=== PATIENT | female | born 1945 | race Caucasian/White ===

== ENCOUNTER 2016-12-20 11:52 | Emergency (ER) | payer MEDICARE, BC ==
[~2016-12-20] VITALS: Ht 152.4 cm; Wt 71.7 kg
[~2016-12-20 11:52] MED LIST: ALLOPURINOL; ALLP100T PO; ALPR.25T PO; ALPR0.254 PO; ASP325T PO; ASPI-875 PO; BENTYL; BUDE6HFA IH; CA C1TAB26 PO; CALC390T PO; CALCIUM; CHOL200018 PO; CIPR-120 PO; CODE118S2 PO; COLE1TAB PO; D-3 PO; DEXL60CA PO; DEXL60CA5 PO; DICY20TA57 PO; DIOVAN; DOXY-182 PO; EST1.25T PO; FEBU80TA PO; FENO130C5 PO; GABA-490 PO; GBPN100C PO; GBPN300C PO; GLUC-113 PO; GLUC1TAB60 PO; HYDR1TAB PO; IMIP50TA4 PO; IMP25T PO; LEVA15HF2 IH; NEURONTIN; NF-ESOM40C PO; NFNEB10T PO; PHEN120S PO; POTA99TA7 PO; POTASSIUM; PREMARIN; SIMV20TA3 PO; SIMV40TA2 PO; SIMV40TA4 PO; TOFRANIL; VALS1TAB4 PO; VALS1TAB43 PO; XANAX
--- OUTSIDE RECORDS SUMMARY | 2016-12-20 11:58 | XMS REPORT | Continuity of Care Document ---
[facility] Phone Unavailable Care Team Providers Care Radio Station Engineer Name Role Phone Jerilyn Ashlee PCP [phone] Source Comments Some departments are not documenting in the electronic medical record. If you do not see the information that you expected, contact Release of Information in the Health Information Management department at [phone] for further assistance in locating additional records[facility] Active Allergies and Adverse Reactions Allergen Noted Date Severity Reactions Comments Ampicillin 01/28/2015 Medium RASH, ITCHING Other 01/28/2015 Medium MENTAL STATUS CHANGES, Unknown "older muscle SEE COMMENTS relaxant", patient was hospitalized with reaction Prednisone 01/28/2015 Medium MENTAL STATUS CHANGES Sulfa (Sulfonamide 01/28/2015 Medium RASH Antibiotics) Trimethoprim 01/28/2015 Medium RASH, ITCHING Current Medications Prescription Sig. Disp. Refills Start End Date Status Date Cholecalciferol (Vitamin Take by mouth daily. Active D3) (VITAMIN D-3) 2,000 unit cap cyanocobalamin(DIL) Inject to area(s) as Active (VITAMIN B-12, RUBRAMIN) directed every 30 days. 100 mcg/mL Fenofibrate Micronized Take by mouth daily. Active 130 mg cap nebivolol (BYSTOLIC) 10 Take 10 mg by mouth Active mg tablet daily. gabapentin (NEURONTIN) Take 100 mg by mouth Active 100 mg capsule daily. simvastatin (ZOCOR) 40 mg Take 40 mg by mouth at Active tablet bedtime daily. estrogens, conjugated Take 1.25 mg by mouth Active (PREMARIN) 1.25 mg tablet daily. Patient takes 1 1/2 tablets daily for a total dose of 1.875mg glucosamine(+) 500 mg tab Take 500 mg by mouth Active daily with breakfast. dexlansoprazole (+) Take 60 mg by mouth Active (DEXILANT) 60 mg capsule daily. imipramine (TOFRANIL) 50 Take 50 mg by mouth at Active mg tablet bedtime daily. ALPRAZolam (XANAX) 0.25 Take 0.25 mg by mouth as Active mg tablet Needed. aspirin 81 mg chewable Take 81 mg by mouth Active tablet daily. linagliptin (TRADJENTA) 5 Take 5 mg by mouth daily. Active mg tab psyllium (METAMUCIL) Take 1 Packet by mouth 60 Packet 1 01/29/20 Active packet twice daily. 15 senna/docusate Take 1-2 Tabs by mouth at 60 Tab 3 01/29/20 Active (SENOKOT-S) 8.6/50 mg bedtime daily. 15 tablet polyethylene glycol 3350 Take 17 g by mouth daily 1 Bottle 1 01/29/20 Active (GLYCOLAX; MIRALAX) 17 as needed. 15 gram/dose powder magnesium oxide (MAG-OX) Take 400 mg by mouth Active 400 mg tablet daily. ondansetron (ZOFRAN) 4 mg Take 1 Tab by mouth every 90 Tab 0 03/25/20 Active tablet 8 hours as needed for 15 Nausea for up to 90 doses. Active Problems Problem Noted Date Nausea 01/28/2015 Abdominal bloating 01/28/2015 Constipation 01/28/2015 Abdominal pain 01/28/2015 Weight loss 01/28/2015 Social History Tobacco Use Types Packs/Day Years Used Date Never Smoker Alcohol Use Drinks/Week oz/Week Comments No Last Filed Vital Signs Vital Sign Reading Time Taken Blood Pressure 151/77 03/25/2015 1:38 PM CDT Pulse 73 03/25/2015 1:38 PM CDT Temperature 36.6 C (97.9 F) 03/25/2015 1:38 PM CDT Respiratory Rate 14 03/25/2015 1:38 PM CDT Height 1.524 m (5') 03/25/2015 1:38 PM CDT Weight 68.176 kg (150 lb 4.8 oz) 03/25/2015 1:38 PM CDT Body Mass Index 29.35 03/25/2015 1:38 PM CDT Oxygen Saturation 100% 02/20/2015 4:44 PM CDT Plan of Care Health Maintenance Due Date Last Done Comments Physical (Comprehensive) 1950 Exam Pertussis Vaccine 1954 Tetanus Vaccine 1960 Breast Cancer Screening 1983 Shingles Vaccine 2003 Osteoporosis Screening 2008 Prevnar/Pneumovax (#1) 2008 Influenza Vaccine 07/07/2016 Colorectal Cancer 02/20/2025 02/20/2015 Screening Results from Last 3 Months Not on file
--- NOTE | 2016-12-20 12:53 | ED Head Injury ---
General Chief Complaint: Trauma-Non Activation Stated Complaint: FALL/HEAD INJURY Nursing Triage Note: PT STATES FELL AT HOME D/T WEAKNESS IN HANDS AND FEET, STATES HIT HEAD ON DEEP FREEZE. NO LOC Source: patient Exam Limitations: no limitations History of Present Illness Time seen by provider: 12:52 Initial Comments To ER with reports of a fall at home. She states that she has neuropathy ( evaluated by PCP) and sometimes her feet don't work as they should. Today this caused her to fall and she hit the frontal and left side of her head on the deep freeze. No neck pain or loss of consciousness. She does have some dizziness and a slight headache. She states that she does have some dizziness but this is an intermittent problem over the past 2 years and has been evaluated by her primary care provider. Location Injury Occurred: HOME Occurred: just prior to arrival Location: frontal Loss of Consciousness: no loss of consciousness Associated Systoms: Headaches Allergies and Home Medications Allergies Coded Allergies: NSAIDS (Non-Steroidal Anti-Inflamma (Verified Allergy, Intermediate, ) STATES SHE GETS 'CRAZY' Sulfa (Sulfonamide Antibiotics) (Unverified Allergy, Unknown, 01/07/14) ampicillin (Unverified Allergy, Unknown, 01/07/14) prednisone (Unverified Adverse Reaction, Unknown, 03/06/14) Home Medications Alprazolam 0.25 Mg Tablet 0.25 MG PO TID PRN PRN ANXIETY (Reported) NEEDED FOR ANXIETY Aspirin 81 Mg Tablet. 81 MG PO DAILY (Reported) Cholecalciferol (Vitamin D3) 2,000 Unit Capsule 2,000 UNIT PO DAILY (Reported) Ciprofloxacin Hcl 250 Mg Tablet 7Days 250 MG PO BID Prescribed by: ARACELI WELCH on 03/07/14 0928 Dexlansoprazole 60 Mg Albaro. 60 MG PO BID (Reported) Estrogens Conjugated 1.25 Mg Tab 1.25 MG PO DAILY (Reported) Fenofibrate,Micronized 130 Mg Capsule 130 MG PO DAILY (Reported) Gabapentin 100 Mg Cap 200 MG PO HS (Reported) TAKES 2 (100MG) CAPSULES AT BEDTIME Gluc 2KCL/Chondr/Terrell Hy/Hy Ac 1 Each Capsule 1 CAP PO DAILY (Reported) Imipramine Hcl 50 Mg Tablet 50 MG PO HS (Reported) Nebivolol Hcl 10 Mg Tablet 10 MG PO DAILY (Reported) Simvastatin 40 Mg Tablet 20 MG PO DAILY (Reported) TAKES 1/2 (40MG) TABLET DAILY Constitutional: see HPI Eyes: No Symptoms Reported Ears, Nose, Mouth, Throat: no symptoms reported Respiratory: no symptoms reported Cardiovascular: no symptoms reported Genitourinary: no symptoms reported Musculoskeletal: no symptoms reported Skin: no symptoms reported Psychiatric/Neurological: No Symptoms Reported Endocrine: No Symptoms Reported Hematologic/Lymphatic: No Symptoms Reported Past Ujybdrl-Konmfs-Ioyayy Hx Patient Social History Alcohol Use: Denies Use Recreational Drug Use: No Smoking Status: Never a Smoker Recent Foreign Travel: No Contact w/Someone Who Travel: No Recent Infectious Disease Expo: No Recent Hopitalizations: No Immunizations Up To Date Tetanus Booster (TDap): Unknown Date of Influenza Vaccine: Aug 06, 2013 Surgeries HX Surgeries: Yes (HYSTERECTOMY, GALLBLADDER, KIDNEY REMOVED, APPENDECTOMY) Respiratory Hx Respiratory Disorders: No Cardiovascular Hx Cardiac Disorders: Yes Neurological Hx Neurological Disorders: No 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 System Hx 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 Genitourinary Hx Genitourinary Disorders: Yes (LEFT KIDNEY REMOVED FROM SURGICAL MISTAKE) Gastrointestinal Hx Gastrointestinal Disorders: Yes (DUMPING SYNDROME) Musculoskeletal Hx Musculoskeletal Disorders: Yes Musculoskeletal Disorders: Arthritis Endocrine Hx Endocrine Disorders: No HEENT HX ENT Disorders: No Cancer Hx Cancer: No Psychosocial Hx Psychiatric Problems: Yes Behavioral Health Disorders: Anxiety, Depression Integumentary HX Skin/Integumentary Disorder: No Blood Transfusions Hx Blood Disorders: No Adverse Reaction to a Blood Tr: No Family Medical History Family Medial History: Cataract 03 FATHER 03 MOTHER 09 BROTHER 09 BROTHER Dementia 03 MOTHER Family history: Allergy 09 BROTHER Family history: Arthritis 03 MOTHER Family history: Diabetes mellitus 09 BROTHER Family history: Glaucoma 03 MOTHER Family history: Osteoporosis 03 MOTHER Hereditary disease 03 MOTHER Prostate cancer 03 FATHER Stroke 03 MOTHER No Family History of: Abdominal aortic aneurysm Boundary's disease Alcoholism Aphasia Cancer Cancer of colon Chest pain Congenital heart disease Congestive heart failure Cystic fibrosis Dysphagia Family history: Alzheimer's disease Family history: Asthma Family history: Breast disease Family history: Cardiovascular disease Family history: Coronary thrombosis Family history: Gastrointestinal disease Family history: Hypertension Family history: Thyroid disorder Headache Hearing loss Heart disease History of - anemia History of - disorder History of - respiratory disease History of drug abuse Human immunodeficiency virus (HIV) seropositivity Hypercholesterolemia Infertile Kidney disease Malignant neoplasm of lung Myocardial infarction Parkinson's disease Psychotic disorder Seizure disorder Tuberculosis Visual impairment Physical Exam Vital Signs Vital Sign - Last 12Hours 12/20/16 12:05 Temp 97.9 Pulse 66 Resp 18 B/P 146/81 Pulse Ox 95 Capillary Refill : Less Than 3 Seconds General Appearance: WD/WN no apparent distress HEENT: PERRL/EOMI normal ENT inspection other (there is no palpable scalp hematoma or laceration) Neck: non-tender full range of motion Respiratory: no respiratory distress no accessory muscle use Gastrointestinal: normal bowel sounds non tender soft Extremities: normal range of motion non-tender Skin: normal color warm/dry Schurz Coma Score Best Eye Response: (4) Open Spontaneously Best Verbal Response: (5) Oriented Best Motor Response: (6) Obeys Commands Schurz Total: 15 Progress/Results/Core Measures Results/Orders My Orders Orders-DREAD ADAN APRN Ct Head/Cervical Spine Wo (12/20/16 11:58) Vital Signs/I&O Vital Sign - Last 12Hours 12/20/16 12:05 Temp 97.9 Pulse 66 Resp 18 B/P 146/81 Pulse Ox 95 Blood Pressure Mean: 102 Departure Impression Impression: Primary Impression: Fall Additional Impression: Concussion without loss of consciousness Disposition: 01 HOME, SELF-CARE Condition: Stable Departure-Patient Inst. Decision time for Depature: 13:04 Referrals: ARACELI WELCH DO (PCP/Family) Primary Care Physician Patient Instructions: Concussion, Adult (DC) Add. Discharge Instructions: 1. Return to ER for any severe intolerable headaches, nausea vomiting or other concerns 2. Go home and rest. The basis of concussion management is cognitive and physical wrist so nothing physically or mentally stimulating. Unfortunately, concussion symptoms such as dizziness, headache may persist up to 3 weeks. All discharge instructions reviewed with patient and/or family. Voiced understanding. DREAD ADAN APRN Dec 20, 2016 12:53
--- NOTE | 2016-12-20 12:57 | Diagnostic Imaging Report ---
PROCEDURE: CT head and CT cervical spine without contrast. TECHNIQUE: Multiple contiguous axial images were obtained through the brain and cervical spine without the use of intravenous contrast. Sagittal and coronal reformations through the cervical spine were then performed. INDICATION: Patient fell and hit head with left-sided head pain and neck pain. COMPARISON: Head CT 01/08/2014. CTA of the neck 01/07/2015. DISCUSSION: Head: No adverse interval change. No intracranial hemorrhage, mass, midline shift, or hydrocephalus. The ventricles and sulci are normal size and configuration for age. The visualized orbits, paranasal sinuses, mastoid air cells, and calvarium are unremarkable. Cervical spine: Moderate degenerative changes of the cervical spine appear stable. No acute fracture, subluxation, or other osseous abnormality identified. Alignment is anatomic. Soft tissues are unremarkable. IMPRESSION: 1. Stable negative head CT. 2. Stable moderate degenerative changes of the cervical spine. No acute osseous abnormality identified. Dictated by: Dictated on workstation # [id number]
[2016-12-20] MEDS ORDERED: ALPRAZolam 0.25 MG (XANAX) TAB PO ONE (13:15)
[2016-12-20 13:16] VITALS: BP 142/72
== END 2016-12-20 13:14 | disposition home or self-care (01) ==
LOC: EDUNIT# 11:52 → ER 11:54
DX: S06.0X0A Concussion without loss of consciousness, initial encounter (principal); R42 Dizziness and giddiness; G62.9 Polyneuropathy, unspecified; R29.6 Repeated falls; Z79.82 Long term (current) use of aspirin; Z79.899 Other long term (current) drug therapy; W18.09XA Striking against other object with subsequent fall, initial encounter; Y92.009 Unspecified place in unspecified non-institutional (private) residence as the place of occurrence of the external cause; Y99.8 Other external cause status
CPT/HCPCS: 70450; 72125; 99282

== ENCOUNTER → 2018-03-15 | Outpatient (CLI) | payer MEDICARE, BC ==
--- NOTE | 2018-03-15 12:40 | Diagnostic Imaging Report ---
CLINICAL INDICATION: Patient with neuropathy and recently has been falling and having trouble walking. Exam: MRI of the lumbar spine performed without IV contrast. Sagittal T2, sagittal T1, sagittal stir, axial T1, and axial T2. Comparison: MRI of the lumbar spine without contrast dated 03/17/2011. Findings: Stable mild left curvature of the lumbar spine. Visualized portions of the distal thoracic spinal cord, conus medullaris, and cauda equina nerve roots are unremarkable. Conus medullaris tip is seen at the upper L2 vertebral body level. There is no significant paraspinal soft tissue abnormality. There is no acute lumbar spine fracture or dislocation. Again seen slightly heterogeneous high/low T1/T2 signal. There is Modic type II degenerative signal changes involving the L3-L4 and L4-L5 levels again noted. There is degenerative spurs and facet arthropathy seen predominantly involving the lower lumbar spine. L1-L2 and L2-L3: Unremarkable. L3-L4: There is no significant change to the diffuse disc bulge with moderate to severe loss of intervertebral disc height. There is mild central canal narrowing which is not significantly progressed. There is mild to moderate right neural foramen narrowing and mild left neural foramen narrowing which is stable. L4-L5: Again seen diffuse disc bulge with interval slight decreased size of the left paracentral disc extrusion/herniation component. There is slight progression of [id number] facet arthropathy and ligamentum flavum buckling. There is moderate central canal narrowing which is grossly similar. There is no significant right neural foramen narrowing and stable mild to moderate left neural foramen narrowing. L5-S1: There is a diffuse disc bulge with mild loss of intervertebral disc height and mild bilateral facet arthropathy which is not significantly changed. Stable mild to moderate bilateral neural foramen narrowing (right side more than the left). IMPRESSION: 1: There is interval decreased size of the left paracentral disc herniation component of the L4-L5 diffuse disc bulge. There is slight progression of facet arthropathy and ligamentum flavum buckling. There is relatively stable moderate central canal narrowing. There is also stable mild to moderate left neural foramen narrowing. 2: The remainder of the lumbar spine degenerative disease has not significantly changed. Dictated by: Dictated on workstation # [id number]
== END ==
LOC: RAD 10:24
PROVIDERS: ATTEND Family Medicine
DX: M51.26 Other intervertebral disc displacement, lumbar region (principal); M51.36 Other intervertebral disc degeneration, lumbar region; M99.73 Connective tissue and disc stenosis of intervertebral foramina of lumbar region; G62.9 Polyneuropathy, unspecified
CPT/HCPCS: 72148

== ENCOUNTER → 2019-05-23 | Outpatient (CLI) | payer MEDICARE, BC ==
--- NOTE | 2019-05-23 09:45 | Diagnostic Imaging Report ---
Clinical indication: Patient with elevated liver function test. Exam: Right upper quadrant ultrasound. Comparison: CT scan of the abdomen and pelvis without contrast dated 07/28/2014. Findings: The liver measures 19.5 cm. There is diffuse hyperechogenicity seen throughout the liver. The liver surface appears slightly lobulated. There is no liver mass seen. There is no intrahepatic or extrahepatic ductal dilation. Common bile measures 7.4 mm. The gallbladder surgically resected. Portion of the pancreatic tail is partially obscured. Otherwise visualized portion of the pancreas is unremarkable. The IVC and aorta are not well visualized on this exam due to patient body habitus and increased echogenicity throughout the liver. There is abdominal ascites. Right kidney shows no mass or hydronephrosis and is grossly unremarkable. Right kidney measures 10.1 cm in craniocaudal dimension. Impression: 1: Hepatomegaly with diffuse hyperechogenicity seen throughout the liver which may be related to diffuse fatty infiltration and or chronic hepatocellular disease. There is a minimally lobulated appearance to the liver surface. This finding may be seen with cirrhosis. Clinical correlation is suggested. 2: Cholecystectomy. 3: The remainder of this exam is unremarkable as visualized. Dictated by: Dictated on workstation # [id number]
== END ==
LOC: RAD 07:29
PROVIDERS: ATTEND Family Medicine
DX: R93.2 Abnormal findings on diagnostic imaging of liver and biliary tract (principal); R16.0 Hepatomegaly, not elsewhere classified; Z90.49 Acquired absence of other specified parts of digestive tract
CPT/HCPCS: 76705

== ENCOUNTER 2020-04-21 13:40 | Emergency (ER) | payer MEDICARE, BC ==
[~2020-04-21] VITALS: Ht 152.4 cm; Wt 72.6 kg
--- NOTE | 2020-04-21 13:46 | ED Fall/Injury ---
General Stated Complaint: FALL Source: patient History of Present Illness Date Seen by Provider: Apr 21, 2020 Time Seen by Provider: 13:47 Initial Comments PT ARRIVES VIA POV FROM DR. WELCH'S OFFICE PT HAD A SCHEDULED ROUTINE APPOINTMENT TODAY, AND 45 MINUTES AGO, WHILE SHE WAS AT HOME, SHE LOST HER BALANCE AND FELL, HITTING HER HEAD, LANDING ON CARPETED FLOOR, ONTO HER BACK AND RIGHT SIDE. NO LOSS OF CONSCIOUSNESS NO NECK PAIN C/O BLURRY VISION C/O RIGHT SIDED HEADACHE C/O RIGHT HIP PAIN NO CHANGE IN CHRONIC BACK PAIN HAS CHRONIC HIP PAIN, AND STATES IT IS NOT ANY DIFFERENT THAN NORMAL HAS PERIPHERAL NEUROPATHY, AND NO INCREASE IN SYMPTOMS MUCH LATER, PT C/O GENERALIZED WEAKNESS MUCH LATER, SHE REPORTS THAT SHE HAS HAD DIARRHEA FOR THE LAST COUPLE OF DAYS--NO BLACK/BLOODY/TARRY STOOLS NO NAUSEA/VOMITING NO ABDOMINAL PAIN NO FEVER NO URINARY SYMPTOMS AND VOIDING A NORMAL AMOUNT. CERVICAL COLLAR PLACED ON ARRIVAL PCP: DR. WELCH Allergies and Home Medications Allergies Coded Allergies: NSAIDS (Non-Steroidal Anti-Inflamma (Verified Allergy, Intermediate, 01/07/14) STATES SHE GETS 'CRAZY' Sulfa (Sulfonamide Antibiotics) (Unverified Allergy, Unknown, 01/07/14) ampicillin (Unverified Allergy, Unknown, 01/07/14) prednisone (Unverified Adverse Reaction, Unknown, 03/06/14) Home Medications Alprazolam 0.25 Mg Tablet, 0.25 MG PO TID PRN for ANXIETY, (Reported) NEEDED FOR ANXIETY Aspirin 81 Mg Tablet., 81 MG PO DAILY, (Reported) Cholecalciferol (Vitamin D3) 2,000 Unit Capsule, 2,000 UNIT PO DAILY, (Reported) Ciprofloxacin Hcl 250 Mg Tablet, 250 MG PO BID Prescribed by: ARACELI WELCH on 03/07/14 0928 Dexlansoprazole 60 Mg Cap., 60 MG PO BID, (Reported) Estrogens Conjugated 1.25 Mg Tab, 1.25 MG PO DAILY, (Reported) Fenofibrate,Micronized 130 Mg Capsule, 130 MG PO DAILY, (Reported) Gabapentin 100 Mg Cap, 200 MG PO HS, (Reported) TAKES 2 (100MG) CAPSULES AT BEDTIME Gluc 2KCL/Chondr/Terrell Hy/Hy Ac 1 Each Capsule, 1 CAP PO DAILY, (Reported) Imipramine Hcl 50 Mg Tablet, 50 MG PO HS, (Reported) Nebivolol Hcl 10 Mg Tablet, 10 MG PO DAILY, (Reported) Simvastatin 40 Mg Tablet, 20 MG PO DAILY, (Reported) TAKES 1/2 (40MG) TABLET DAILY Patient Home Medication List Home Medication List Reviewed: Yes Review of Systems Review of Systems Constitutional: see HPI; No chills, No diaphoresis, No dizziness, No fever; malaise, weakness Eyes: No Symptoms Reported Ears, Nose, Mouth, Throat: no symptoms reported Respiratory: no symptoms reported Cardiovascular: no symptoms reported Gastrointestinal: see HPI; No abdominal pain; diarrhea; No nausea, No vomiting Genitourinary: no symptoms reported Musculoskeletal: see HPI Skin: no symptoms reported Psychiatric/Neurological: See HPI; Denies Headache; Pre-Existing Deficit (PERIPHERAL NEUROPATHY) Past Chvqihj-Vlfpir-Ysyema Hx Past Med/Social Hx: Reviewed and Corrections made Patient Social History Alcohol Use: Denies Use Recreational Drug Use: No Smoking Status: Never a Smoker Recent Hopitalizations: No Immunizations Up To Date Tetanus Booster (TDap): Unknown Date of Influenza Vaccine: Aug 06, 2013 Past Medical History Surgeries: Yes Hysterectomy Respiratory: No Cardiac: Yes High Cholesterol, Hypertension Neurological: Yes Neuropathy 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, 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 Genitourinary: Yes (CHRONIC RENAL INSUFFICIENCY) Gastrointestinal: No Musculoskeletal: Yes (CHRONIC HIP PAIN ) Arthritis, Chronic Back Pain Endocrine: No HEENT: No Psychosocial: Yes Anxiety, Depression Integumentary: No Blood Disorders: Yes (CHRONIC ANEMIA) Adverse Reaction/Blood Tranf: No Family Medical History Cataract 03 FATHER 03 MOTHER 09 BROTHER 09 BROTHER Dementia 03 MOTHER Family history: Allergy 09 BROTHER Family history: Arthritis 03 MOTHER Family history: Diabetes mellitus 09 BROTHER Family history: Glaucoma 03 MOTHER Family history: Osteoporosis 03 MOTHER Hereditary disease 03 MOTHER Prostate cancer 03 FATHER Stroke 03 MOTHER No Family History of: Abdominal aortic aneurysm Challis's disease Alcoholism Aphasia Cancer Cancer of colon Chest pain Congenital heart disease Congestive heart failure Cystic fibrosis Dysphagia Family history: Alzheimer's disease Family history: Asthma Family history: Breast disease Family history: Cardiovascular disease Family history: Coronary thrombosis Family history: Gastrointestinal disease Family history: Hypertension Family history: Thyroid disorder Headache Hearing loss Heart disease History of - anemia History of - disorder History of - respiratory disease History of drug abuse Human immunodeficiency virus (HIV) seropositivity Hypercholesterolemia Infertile Kidney disease Malignant neoplasm of lung Myocardial infarction Parkinson's disease Psychotic disorder Seizure disorder Tuberculosis Visual impairment Physical Exam Vital Signs Vital Signs - First Documented 04/21/20 13:45 Temp 36.8 Pulse 81 Resp 18 B/P (MAP) 160/65 (96) Pulse Ox 99 O2 Delivery Room Air Capillary Refill : Height, Weight, BMI Height: 5'0.00" Weight: 158lbs. 0.0oz. [id number]; 30.85 BMI Method:Stated General Appearance: WD/WN, no apparent distress HEENT: PERRL/EOMI, normal ENT inspection, TMs normal, pharynx normal, other (NO EXTERNAL EVIDENCE OF TRAUMA TO HEAD) Neck: non-tender, other (CERVICAL COLLAR APPLIED ON ARRIVAL) Cardiovascular: normal peripheral pulses, regular rate, rhythm, no edema, no JVD, no murmur Respiratory: chest non-tender, normal breath sounds, no respiratory distress, no accessory muscle use Peripheral Pulses: 1+ Dorsalis Pedis (R), 1+ Left Dors-Pedis (L), 1+ Radial Pulses (R), 1+ Radial Pulses (L) Gastrointestinal: normal bowel sounds, non tender, soft Back: no CVA tenderness, other (MID AND LOWER BACK TENDERNESS) Extremities: no pedal edema, no calf tenderness, normal capillary refill, other (RGHT HIP TENDERNESS) 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: 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, no motor/sensory deficits, alert, normal mood/affect, oriented x 3 Skin: normal color, warm/dry; No ecchymosis; other (NO EXTERNAL EVIDENCE OF TRAUMA ANYWHERE) Corea Coma Score Best Eye Response: (4) Open Spontaneously Best Verbal Response: (5) Oriented Best Motor Response: (6) Obeys Commands Corea Total: 15 Progress/Results/Core Measures Results/Orders Lab Results Laboratory Tests Test 04/21/20 14:05 04/21/20 15:20 Range/Units White Blood Count 6.4 4.3-11.0 10^3/uL Red Blood Count 3.88 L 4.35-5.85 10^6/uL Hemoglobin 10.0 L 11.5-16.0 G/DL Hematocrit 32 L 35-52 % Mean Corpuscular Volume 83 80-99 FL Mean Corpuscular Hemoglobin 26 25-34 PG Mean Corpuscular Hemoglobin Concent 31 L 32-36 G/DL Red Cell Distribution Width 15.3 H 10.0-14.5 % Platelet Count 220 130-400 10^3/uL Mean Platelet Volume 11.7 H 7.4-10.4 FL Neutrophils (%) (Auto) 66 42-75 % Lymphocytes (%) (Auto) 26 12-44 % Monocytes (%) (Auto) 8 0-12 % Eosinophils (%) (Auto) 0 0-10 % Basophils (%) (Auto) 0 0-10 % Neutrophils # (Auto) 4.2 1.8-7.8 X 10^3 Lymphocytes # (Auto) 1.6 1.0-4.0 X 10^3 Monocytes # (Auto) 0.5 0.0-1.0 X 10^3 Eosinophils # (Auto) 0.0 0.0-0.3 10^3/uL Basophils # (Auto) 0.0 0.0-0.1 10^3/uL Sodium Level 136 135-145 MMOL/L Potassium Level 4.8 3.6-5.0 MMOL/L Chloride Level 105 98-107 MMOL/L Carbon Dioxide Level 20 L 21-32 MMOL/L Anion Gap 11 5-14 MMOL/L Blood Urea Nitrogen 21 H 7-18 MG/DL Creatinine 1.70 H 0.60-1.30 MG/DL Estimat Glomerular Filtration Rate 29 BUN/Creatinine Ratio 12 Glucose Level 183 H 70-105 MG/DL Calcium Level 9.8 8.5-10.1 MG/DL Corrected Calcium 9.9 8.5-10.1 MG/DL Total Bilirubin 0.3 0.1-1.0 MG/DL Aspartate Amino Transf (AST/SGOT) 46 H 5-34 U/L Alanine Aminotransferase (ALT/SGPT) 28 0-55 U/L Alkaline Phosphatase 100 40-136 U/L Total Protein 7.2 6.4-8.2 GM/DL Albumin 3.9 3.2-4.5 GM/DL Urine Color YELLOW Urine Clarity CLEAR Urine pH 6.0 5-9 Urine Specific [place] <=1.005 1.016-1.022 Urine Protein NEGATIVE NEGATIVE Urine Glucose (UA) NEGATIVE NEGATIVE Urine Ketones NEGATIVE NEGATIVE Urine Nitrite NEGATIVE NEGATIVE Urine Bilirubin NEGATIVE NEGATIVE Urine Urobilinogen 0.2 < = 1.0 MG/DL Urine Leukocyte Esterase NEGATIVE NEGATIVE Urine RBC (Auto) NEGATIVE NEGATIVE Urine RBC NONE /HPF Urine WBC NONE /HPF Urine Squamous Epithelial Cells 2-5 /HPF Urine Crystals NONE /LPF Urine Bacteria FEW H /HPF Urine Casts NONE /LPF Urine Mucus NEGATIVE /LPF Urine Yeast FEW H /HPF Urine Culture Indicated NO My Orders Orders - DOUG JUSTICE DO Ct Head/Cervical Spine Wo (04/21/20 13:43) Ct Thoracic/Lumbar Spine Wo (04/21/20 13:43) Monitor-Rhythm Ecg Trace Only (04/21/20 13:43) Cervical Collar (04/21/20 13:43) Cbc With Automated Diff (04/21/20 13:43) Comprehensive Metabolic Panel (04/21/20 13:43) Ua Culture If Indicated (04/21/20 13:43) Chest 1 View, Ap/Pa Only (04/21/20 13:43) Pelvis With Right Hip 2-3views (04/21/20 13:43) Ed Iv/Invasive Line Start (04/21/20 15:06) Lactated Ringers (Lr 1000 Ml Iv Solution (04/21/20 15:06) Ed Iv/Invasive Line Start (04/21/20 15:21) Lactated Ringers (Lr 1000 Ml Iv Solution (04/21/20 15:21) Medications Given in ED Vital Signs/I&O 04/21/20 04/21/20 13:45 16:43 Temp 36.8 36.6 Pulse 81 82 Resp 18 18 B/P (MAP) 160/65 (96) 178/69 Pulse Ox 99 99 O2 Delivery Room Air Room Air Progress Progress Note : Progress Note 1515--CERVICAL COLLAR REMOVED ON OBTAINING CT CERVICAL SPINE REPORT BY RADIOLOGIST UNEVENTFUL ER STAY NO DIARRHEA DURING ER STAY PT DECLINED SECOND BAG OF IV FLUIDS AND IS ANXIOUS TO GO HOME STATES SHE FEELS BETTER Diagnostic Imaging Comments CT HEAD/CERVICAL SPINE IMPRESSION: 1. No hemorrhage or focal intra-axial mass. No CT evidence of large acute territorial ischemia. 2. No acute fracture or dislocation in the cervical spine. 3. Moderate degenerative changes in the cervical spine, similar to the prior exam. CT THORACIC/LUMBAR SPINE IMPRESSION: Progressive L3-L4 spondylosis but no thoracolumbar fracture or traumatic malalignment. No acute appearing abnormality. CXR IMPRESSION: Borderline heart size with no acute process in the chest. PELVIS AND RIGHT HIP XRAYS IMPRESSION: 1. No acute osseous abnormality with low-grade degenerative changes. ALL PER RADIOLOGIST REPORTS AT 1515 Reviewed: Reviewed by Me Departure Communication (Admissions) 0064--SPOKE WITH DR. WELCH. SHE REPORTS THAT PT HAS CHRONIC RENAL INSUFFICIENCY AND ANEMIA OF CHRONIC DISEASE. SHE DOES NOT ADVISE ADMIT AT THIS TIME, SHE WILL FOLLOW UP WITH PT IN OFFICE THIS WEEK, Impression Primary Impression: Status post fall Additional Impressions: Closed head injury without loss of consciousness Contusion of right hip NECK AND BACK STRAIN Chronic renal insufficiency Chronic anemia Generalized weakness Diarrhea Disposition: 01 HOME, SELF-CARE Condition: Stable Departure-Patient Inst. Referrals: ARACELI WELCH DO (PCP/Family) Primary Care Physician Patient Instructions: Back Muscle Strain (DC), Cervical Muscle Strain (DC), Contusion (DC), Minor Head Injury (DC), Preventing Falls in the Older Adult Add. Discharge Instructions: ICE TO SORE AREAS AT 20 MINUTE INTERVALS TYLENOL NEEDED FOR PAIN INCREASE YOUR FLUID INTAKE--WATER, BROTH, JELLO, GATORADE BRATS DIET--BANANAS, RICE, APPLESAUCE, TOAST, SALTINES FOLLOW UP WITH DR. WELCH THIS WEEK FOR FURTHER CARE DOUG JUSTICE DO Apr 21, 2020 13:46
[2020-04-21 14:15] LABS: BASOPHILS % (AUTO) 0 % (0-10); EOSINOPHILS % (AUTO) 0 % (0-10); HEMATOCRIT 32 % (35-52); LYMPHOCYTES # (AUTO) 1.6 X 10^3 (1.0-4.0); LYMPHOCYTES % (AUTO) 26 % (12-44); MEAN CORPUSCULAR HEMOGLOBIN 26 PG (25-34); MEAN CORPUSCULAR HGB CONC 31 G/DL (32-36); MEAN CORPUSCULAR VOLUME 83 FL (80-99); MEAN PLATELET VOLUME 11.7 FL (7.4-10.4); MONOCYTES # (AUTO) 0.5 X 10^3 (0.0-1.0); MONOCYTES % (AUTO) 8 % (0-12); NEUTROPHILS # (AUTO) 4.2 X 10^3 (1.8-7.8); NEUTROPHILS % (AUTO) 66 % (42-75); PLATELET COUNT 220 10^3/uL (130-400); RED CELL DISTRIBUTION WIDTH 15.3 % (10.0-14.5); WHITE BLOOD COUNT 6.4 10^3/uL (4.3-11.0)
--- NOTE | 2020-04-21 14:39 | Diagnostic Imaging Report ---
PROCEDURE: CT head and CT cervical spine without contrast. TECHNIQUE: Multiple contiguous axial images were obtained through the brain and cervical spine without the use of intravenous contrast. Sagittal and coronal reformations through the cervical spine were then performed. Auto Exposure Controls were utilized during the CT exam to meet ALARA standards for radiation dose reduction. INDICATION: Fall. Right neck pain. Scalp contusion. COMPARISON: 12/20/2016. FINDINGS: CT head: No large acute territorial ischemia, mass, or hemorrhage. No midline shift or mass effect. The ventricles, cortical sulci, and basilar cisterns are patent and unremarkable. The calvarium is intact. The visualized paranasal sinuses are clear. CT cervical spine: No acute fracture or dislocation is seen in the cervical spine. There is straightening of the cervical spine. No focal osseous lesions. Vertebral body heights are well-maintained. The craniocervical junction is well-maintained. Moderate degenerative changes are seen in the cervical spine with disc osteophyte complexes and uncovertebral arthropathy, greatest at C6-C7. Soft tissues of the neck are unremarkable. The included lung apices are clear. IMPRESSION: 1. No hemorrhage or focal intra-axial mass. No CT evidence of large acute territorial ischemia. 2. No acute fracture or dislocation in the cervical spine. 3. Moderate degenerative changes in the cervical spine, similar to the prior exam. Dictated by: Dictated on workstation # [id number]
--- NOTE | 2020-04-21 14:42 | Diagnostic Imaging Report ---
PROCEDURE: CT thoracic and lumbar spine without contrast. TECHNIQUE: Multiple contiguous axial images were obtained through the thoracic and lumbar spine without the use of intravenous contrast. Sagittal and coronal reformations were then performed. All CT scans use one or more of the following dose optimizing techniques: automated exposure control, MA and/or KvP adjustment based on a patient size and exam type, or iterative reconstruction. INDICATION: Injury with back pain. COMPARISON: Comparison is limited to a lumbar MRI performed in 2011 and previous chest x-rays. FINDINGS: The thoracolumbar vertebral statures are within normal limits. There are degenerative changes throughout the thoracolumbar spine, most severe at the L3-L4 level, where there is marked disc space narrowing, endplate sclerosis, and osteophytes. When given the differing modalities, this is significantly progressed from the comparison MRI performed in 2010. No evidence for paravertebral hemorrhage and no thoracolumbar fracture is found. The posterior visualized ribs segments are intact. No demonstrated pleural fluid. No paraspinal hemorrhage. The SI joints and visualized sacral ala are intact. IMPRESSION: Progressive L3-L4 spondylosis but no thoracolumbar fracture or traumatic malalignment. No acute appearing abnormality. Dictated by: Dictated on workstation # [id number]
[2020-04-21 14:51] LABS: ALBUMIN 3.9 GM/DL (3.2-4.5); BILIRUBIN,TOTAL 0.3 MG/DL (0.1-1.0); CALCIUM 9.8 MG/DL (8.5-10.1); CREATININE SERUM 1.7 MG/DL (0.60-1.30); POTASSIUM 4.8 MMOL/L (3.6-5.0); TOTAL PROTEIN 7.2 GM/DL (6.4-8.2)
--- NOTE | 2020-04-21 14:55 | Diagnostic Imaging Report ---
INDICATION: Fall with chest discomfort. Frontal chest obtained at 0245 p.m. and compared to 08/04/2016. Heart is borderline in size. Mediastinal silhouette is unremarkable. The lungs are clear. There is no pneumothorax or pleural fluid. There is no overt bony abnormality in the chest. IMPRESSION: Borderline heart size with no acute process in the chest. Dictated by: Dictated on workstation # [id number]
--- NOTE | 2020-04-21 14:58 | Diagnostic Imaging Report ---
INDICATION: Fall, pain COMPARISON: 10/20/2010 TECHNIQUE: 3 radiographs of the pelvis and right hip dated 04/21/2020. FINDINGS: No acute fracture or dislocation. No destructive osseous process. Mild degenerative changes within the bilateral hips and pubic symphysis. The right femoral head maintains its normal shape and contour without collapse. The sacroiliac joints are intact. No suspicious radiopaque foreign body. IMPRESSION: 1. No acute osseous abnormality with low-grade degenerative changes. Dictated by: Dictated on workstation # [id number]
[2020-04-21] MEDS ORDERED: LACTATED RINGERS 1,000 ML IV ONE ×2 (15:06→15:21)
--- NOTE | 2020-04-21 15:15 | NUR ---
CERVICAL COLLAR REMOVED BY DR. JUSTICE AT 1515
--- NOTE | 2020-04-21 15:20 | NUR ---
PCCT ASSISTED PT TO BEDSIDE COMMODE TO OBTAIN CLEAN CATCH URINE SAMPLE. PT TOLERATED WELL.
[2020-04-21 15:30] LABS: BILIRUBIN,URINE NEGATIVE (NEGATIVE); CLARITY,URINE CLEAR; COLOR,URINE YELLOW; GLUCOSE, URINE (UA) NEGATIVE (NEGATIVE); KETONES,URINE NEGATIVE (NEGATIVE); LEUKOCYTE ESTERASE ,URINE NEGATIVE (NEGATIVE); NITRITE,URINE NEGATIVE (NEGATIVE); PROTEIN,URINE NEGATIVE (NEGATIVE)
--- NOTE | 2020-04-21 15:30 | NUR ---
PER PT REQUEST, THIS RN CONTACTED , DARRELL THOMAS, TO UPDATE ON CONDITION OF PT. DARRELL VOICES NO FURTHER QUESTIONS OR CONCERNS. ([phone])
[2020-04-21 15:51] LABS: BACTERIA,URINE FEW /HPF; YEAST,URINE FEW /HPF
[2020-04-21 16:43] VITALS: BP 178/69
== END 2020-04-21 16:43 | disposition home or self-care (01) ==
LOC: EDUNIT# 13:40 → ER 13:42
DX: S09.90XA Unspecified injury of head, initial encounter (principal); S70.01XA Contusion of right hip, initial encounter; S16.1XXA Strain of muscle, fascia and tendon at neck level, initial encounter; S39.012A Strain of muscle, fascia and tendon of lower back, initial encounter; N18.9 Chronic kidney disease, unspecified; D64.9 Anemia, unspecified; R19.7 Diarrhea, unspecified; F41.9 Anxiety disorder, unspecified; F32.9 Major depressive disorder, single episode, unspecified; Z88.6 Allergy status to analgesic agent; Z88.2 Allergy status to sulfonamides; Z88.1 Allergy status to other antibiotic agents; Z88.8 Allergy status to other drugs, medicaments and biological substances; Z79.82 Long term (current) use of aspirin; Z80.42 Family history of malignant neoplasm of prostate; W18.39XA Other fall on same level, initial encounter; W22.8XXA Striking against or struck by other objects, initial encounter; Y92.009 Unspecified place in unspecified non-institutional (private) residence as the place of occurrence of the external cause
CPT/HCPCS: 36415; 70450; 71045; 72125; 72128; 72131; 80053; 81000; 85025; 93041

== ENCOUNTER 2020-05-25 05:40 | Outpatient (RCR) | payer MEDICARE, BC ==
[~2020-05-25] VITALS: Ht 154.9 cm; Wt 75.9 kg
[~2020-05-25 05:40] MED LIST changes: +ALLO100T PO; +AMLO5TAB9 PO; +DOXA2TAB2 PO; +LINA5TAB PO; +LOSA100T57 PO; +MAGN400T8 PO
[2020-05-25] MEDS ORDERED: DICY20TA10 PO (12:18)
[2020-05-25] MEDS ORDERED: GLUC-235 PO (12:18)
[2020-05-25] MEDS ORDERED: CHOL100048 PO (12:18)
[2020-05-25] MEDS ORDERED: LEVO1CAP11 PO (12:18)
[2020-05-27] MEDS ORDERED: HYDR-4226 PO (14:51)
== END 2020-05-25 11:09 | disposition home or self-care (01) ==
LOC: PREOP 05:40
PROVIDERS: ATTEND Surgery
DX: Z01.812 Encounter for preprocedural laboratory examination (principal); R22.31 Localized swelling, mass and lump, right upper limb; Z20.828 Contact with and (suspected) exposure to other viral communicable diseases
CPT/HCPCS: 87635

== ENCOUNTER 2020-05-27 10:07 | Day surgery (SDC) | payer MEDICARE, BC ==
[2020-05-27] VITALS (8 sets, daily range): BP systolic 122–157; BP diastolic 56–83
[~2020-05-27] VITALS: Ht 154.9 cm; Wt 75.9 kg
[~2020-05-27 10:07] MED LIST changes: +CHOL100048 PO; +DICY20TA10 PO; +GLUC-235 PO; +LEVO1CAP11 PO
[2020-05-27] MEDS ORDERED: LACTATED RINGERS 1,000 ML IV PRN (10:29)
[2020-05-27] MEDS ORDERED: CLINDAMYCIN 600 MG/50 ML IVPB 50 ML IV ONE (10:30)
--- NOTE | 2020-05-27 13:17 | Progress Note-Pre Operative ---
Pre-Operative Progress Note H&P Reviewed The H&P was reviewed, patient examined and no changes noted. Time Seen by Provider: 13:15 Date H&P Reviewed: May 27, 2020 Time H&P Reviewed: 13:15 Pre-Operative Diagnosis: Right hand mass, site marked RICHELLE THAPA DO May 27, 2020 13:17
[2020-05-27] MEDS ORDERED: MIDAZOLAM 2 MG/2 ML (VERSED) VIAL ONE (14:18)
[2020-05-27] MEDS ORDERED: fentaNYL INJECTION 100 MCG/2 ML AMP ONE (14:19)
[2020-05-27] MEDS ORDERED: BUP/EPI 0.5% 1:200,000 (SENSORCAINE) 30 ML VIAL ONE (14:20)
[2020-05-27] MEDS ORDERED: PROPOFOL INJECTION 50 ML IV ONE (14:48)
--- NOTE | 2020-05-27 14:50 | Progress Note-Post Operative ---
Post-Operative Progess Note Surgeon (s)/Rn Plastics (s) Surgeon RICHELLE THAPA DO Rn Plastics: NONE Pre-Operative Diagnosis Right hand mass, site marked Post-Operative Diagnosis same pending path Procedure & Operative Findings Date of Procedure 05/27/20 Procedure Performed/Findings Exc right hand mass, 3.2 x 1.4cm Anesthesia Type MAC Estimated Blood Loss Estimated blood loss (mL): less than 5ml Specimens/Packing Specimens Removed right hand mass RICHELLE THAPA DO May 27, 2020 14:50
[2020-05-27] MEDS ORDERED: HYDR-4226 PO (14:51)
--- NOTE | 2020-05-27 14:51 | Discharge Inst-Surgical ---
Discharge Inst-Surgical Depart Medication/Instructions New, Converted or Re-Newed RX: RX Given to Pt/Family Patient Instructions Follow up Appt: Make appointment for 1 week. [phone] Instructions: No strenuous activity. May shower in 24 hours, no tub bath or soaking. Use incentive spirometer at home as directed. No Smoking Skin/Wound Care: May remove bandages in am. You need to leave the Dermabond on incision it will fall off on it's own. Symptoms to Report: Appetite Changes, Extremity Discoloration, Numbness/Tingling, Swelling Increased, Bleeding Excessive, Eyesight Changes, Pain Increased, Urine Color Cathleen nge, Constipation(Persistent), Fever over 101 degree F, Pain/Pressure in chest, Urinating Difficulty, Cough Up/Vomit Blood, Heart Beat Irreg/Pounding, Pain/Pressure in jaw, Cramps in feet or legs, Lightheadedness, Pain/Pressure in shoulder, Diarrhea(Persistent), Memory Changes Suddenly, Questions/Concerns, Weight gain consecutive days, Dizziness/Fainting, Nausea/Vomiting, Shortness of Breath, Weight gain over 2 pounds If questions or concerns contact your physician Or seek help at emergency department. Activity Activity as Tolerated: Yes Activity Instructions: Avoid Stress to Incision Driving Instructions: No Driving/Refer to Dr. Davidson Discharge Diet: No Restrictions Diet After 24 Hours: Clear Liquid if Nauseous If Any Problems/Questions/Issu: Contact Your Physician, Go to Emergency Room Skin/Wound Care Infection Signs and Symptoms: Increased Redness, Foul Odor of Wound, Increased Drainage, Skin Itchy or Has a Rash, Increased Swelling, Temperature Above 101 F Bathing Instructions: Shower Stitches/Adelina/Dermabond Dis: Care of Stitches RICHELLE THAPA DO May 27, 2020 14:51
--- NOTE | 2020-05-27 14:54 | Anesthesia-General Post-Op ---
MAC Patient Condition Mental Status/LOC: Same as Preop Cardiovascular: Satisfactory Nausea/Vomiting: Absent Respiratory: Satisfactory Pain: Controlled Complications: Absent Post Op Complications Complications None Follow Up Care/Instructions Patient Instructions None needed. Anesthesiology Discharge Order Discharge Order Patient is doing well, no complaints, stable vital signs, no apparent adverse anesthesia problems. No complications reported per nursing. BASILIO ERAZO REGISTERED ACCOUNT ADMINISTRATOR May 27, 2020 14:54
[2020-05-27] MEDS ORDERED: morphine INJ 10 MG/ML 1ML (SYR OR VIAL) IVP ONE (15:00)
[2020-05-27] MEDS ORDERED: MEPERIDINE (DEMEROL) INJ 50 MG/ML IVP ONE (15:00)
--- NOTE | 2020-05-28 02:41 | OPERATIVE REPORT ---
DATE OF SERVICE: 05/27/2020 PREOPERATIVE DIAGNOSIS: Right hand mass. POSTOPERATIVE DIAGNOSIS: Right hand mass, pending pathology. PROCEDURE: Excision of right hand mass measuring 3.2 x 1.4 cm down into the subcutaneous fat. SURGEON: Casper Martinez DO DESK ASSISTANT: None. ANESTHESIA: MAC. SPECIMEN: Right hand mass measuring 3.2 x 1.4 cm. BLOOD LOSS: Less than 5 mL. FLUIDS: Per anesthesia. POSTOPERATIVE CONDITION: Stable. INDICATION FOR PROCEDURE: The patient is a 74-year-old female who has a mass on her right hand that is getting bigger and has not gone away since removed. FINDINGS: The patient had a mass removed and sent to pathology, measured 3.2 x 1.4 cm and was down through into the subcutaneous fat. PROCEDURE NOTE: After informed consent was obtained, the patient was brought to the operating room, placed on the table in supine position. She was sterilely prepped and draped in normal fashion. Local lidocaine was used to infiltrate the skin around this mass and then samantha an elliptical incision with a marking pen and then using #15 blade to cut along this marking. This measured 3.2 x 1.4 cm, able to go down through the skin into subcutaneous tissue, then deepened down to subcutaneous tissue with Bovie electrocautery. She is very thin and had very thin skin, able to remove this, passed off table, marked it superiorly and laterally, although technically that was actually marked at the 3 o'clock, which is medial, but would be lateral and dorsal position. This was passed off the table. Hemostasis obtained using Bovie electrocautery and closed the incision with 3-0 prolene interrupted simple stitches. Area was then cleaned and dried, dressing placed. The patient tolerated the procedure. She was transferred to recovery room in stable condition. Sponge, instrument and needle count correct at the end of the case. Job ID: [id number] DocumentID: [id number] Dictated Date: 05/27/2020 15:58:52 Income Tax Auditor Date: 05/28/2020 02:41:24 Dictated By: CASPER MARTINEZ DO [facility]
== END 2020-05-27 16:05 | disposition home or self-care (01) ==
LOC: SDC 10:07
PROVIDERS: ATTEND Surgery
DX: C44.622 Squamous cell carcinoma of skin of right upper limb, including shoulder (principal); I08.3 Combined rheumatic disorders of mitral, aortic and tricuspid valves; I65.23 Occlusion and stenosis of bilateral carotid arteries; I10 Essential (primary) hypertension; F41.9 Anxiety disorder, unspecified; F32.9 Major depressive disorder, single episode, unspecified; K21.9 Gastro-esophageal reflux disease without esophagitis; E11.9 Type 2 diabetes mellitus without complications; K76.0 Fatty (change of) liver, not elsewhere classified; E66.9 Obesity, unspecified; Z68.31 Body mass index [BMI] 31.0-31.9, adult; Z79.82 Long term (current) use of aspirin; Z79.899 Other long term (current) drug therapy; Z88.2 Allergy status to sulfonamides; Z88.1 Allergy status to other antibiotic agents; Z88.6 Allergy status to analgesic agent; Z88.8 Allergy status to other drugs, medicaments and biological substances; Z80.9 Family history of malignant neoplasm, unspecified; Z82.3 Family history of stroke
CPT/HCPCS: 87081

== ENCOUNTER → 2020-08-03 | Outpatient (CLI) | payer MEDICARE, BC ==
[~2020-08-03] MED LIST changes: +HYDR-4226 PO
== END ==
LOC: LABNPT 06:02
PROVIDERS: ATTEND Family Medicine
DX: Z01.812 Encounter for preprocedural laboratory examination (principal); Z20.828 Contact with and (suspected) exposure to other viral communicable diseases
CPT/HCPCS: 87635

== ENCOUNTER 2021-04-11 10:14 | Emergency (ER) | payer MEDICARE, BC ==
[~2021-04-11] VITALS: Ht 157.4 cm; Wt 72.7 kg
[~2021-04-11 10:14] MED LIST changes: +AMLO-250 PO; -AMLO5TAB9 PO
[2021-04-11] MEDS ORDERED: fentaNYL INJ 100 MCG/2 ML AMP IVP ONE (10:45)
[2021-04-11 10:58] LABS: BASOPHILS % (AUTO) 0 % (0-10); EOSINOPHILS # (AUTO) 0.1 10^3/uL (0.0-0.3); EOSINOPHILS % (AUTO) 1 % (0-10); HEMATOCRIT 36 % (35-52); HEMOGLOBIN 12.1 g/dL (11.5-16.0); LYMPHOCYTES # (AUTO) 1.6 10^3/uL (1.0-4.0); LYMPHOCYTES % (AUTO) 22 % (12-44); MEAN CORPUSCULAR HEMOGLOBIN 30 pg (25-34); MEAN CORPUSCULAR HGB CONC 34 g/dL (32-36); MEAN CORPUSCULAR VOLUME 89 fL (80-99); MEAN PLATELET VOLUME 9.7 fL (9.0-12.2); MONOCYTES # (AUTO) 0.6 10^3/uL (0.0-1.0); MONOCYTES % (AUTO) 9 % (0-12); NEUTROPHILS # (AUTO) 4.7 10^3/uL (1.8-7.8); NEUTROPHILS % (AUTO) 67 % (42-75); PLATELET COUNT 153 10^3/uL (130-400); WHITE BLOOD COUNT 6.9 10^3/uL (4.3-11.0)
[2021-04-11 11:07] LABS: ALBUMIN 3.7 GM/DL (3.2-4.5)
[2021-04-11 11:08] LABS: POTASSIUM 4.7 MMOL/L (3.6-5.0)
[2021-04-11 11:09] LABS: CALCIUM 9.7 MG/DL (8.5-10.1)
[2021-04-11 11:10] LABS: TOTAL PROTEIN 7.1 GM/DL (6.4-8.2)
[2021-04-11 11:12] LABS: BILIRUBIN,TOTAL 0.5 MG/DL (0.1-1.0)
[2021-04-11 11:14] LABS: CREATININE SERUM 1.27 MG/DL (0.60-1.30)
[2021-04-11 11:18] LABS: MAGNESIUM 1.8 MG/DL (1.6-2.4)
--- NOTE | 2021-04-11 11:32 | Diagnostic Imaging Report ---
PROCEDURE: CT head, face, and cervical spine without contrast. TECHNIQUE: Multiple contiguous axial images were obtained through the head, neck, and facial bones without the use of intravenous contrast. Sagittal and coronal reformations through the cervical spine and facial bones were also performed. Auto Exposure Controls were utilized during the CT exam to meet ALARA standards for radiation dose reduction. INDICATION: Trauma, fall COMPARISON: Imaging from the same date as well as from 04/21/2020. FINDINGS: There is mild atrophy. No intracranial hemorrhage, intracranial mass, mass effect, midline shift, herniation, hydrocephalus, or extra-axial fluid collection. Periventricular and subcortical white matter hypodensities are present, most consistent with mild background chronic small vessel white matter ischemic disease. No definite CT evidence of an acute ischemic infarction. The orbits are unremarkable. The paranasal sinuses are clear. The calvarium and extracalvarial soft tissues are unremarkable. The paranasal sinuses are clear. Zygomatic arches are intact. No temporomandibular joint dislocation. No acute facial fracture. No significant nasal septal deviation. The orbits are unremarkable. Parapharyngeal fat is symmetric and well-maintained. Muscles of mastication are unremarkable. Alignment of the cervical spine is well maintained. Alignment of the atlantooccipital joint is well maintained. Besides endplate degenerative changes, vertebral body heights are otherwise well-maintained. Severe disc space height loss at C6/C7 with associated anterior osteophytes and disc osteophyte complex. No acute fracture within the cervical spine. Scattered facet joint degenerative changes and uncovertebral joint hypertrophy are present. No severe osseous central canal stenosis. No apical pneumothorax. Mild scattered vascular calcifications. Paraspinal soft tissues are otherwise unremarkable. IMPRESSION: No acute intracranial abnormality with mild atrophy and mild background chronic small vessel white matter ischemic disease. No acute facial fracture. No acute osseous abnormality within the cervical spine with mild to moderate multilevel degenerative changes, greatest at the C6/C7 level. Dictated by: Dictated on workstation # [id number]
--- NOTE | 2021-04-11 11:33 | Diagnostic Imaging Report ---
INDICATION: hand pain TECHNIQUE: Three views of the left hand. CORRELATION STUDY: None FINDINGS: There is normal alignment and appearance of the osseous structures of the hand. The joint spaces are maintained. There is no acute fracture. Soft tissues are unremarkable. IMPRESSION: 1. Negative for acute bony abnormality of the hand. Dictated by: Dictated on workstation # [id number]
--- NOTE | 2021-04-11 11:37 | Diagnostic Imaging Report ---
INDICATION: Wrist pain TECHNIQUE: 3 views of the left wrist CORRELATION STUDY: None FINDINGS: The osseous structures of the wrist have an unremarkable appearance. Alignment is anatomic. There is no acute bony abnormality. Mild soft tissue edema particularly along the dorsal aspect of the wrist. IMPRESSION: 1. Negative examination of the wrist. Dictated by: Dictated on workstation # [id number]
--- NOTE | 2021-04-11 11:41 | Diagnostic Imaging Report ---
PROCEDURE: CT chest, abdomen, and pelvis without contrast. TECHNIQUE: Multiple contiguous axial images were obtained through the chest, abdomen, and pelvis without the use of intravenous contrast. Auto Exposure Controls were utilized during the CT exam to meet ALARA standards for radiation dose reduction. INDICATION: Fall, abdominal pain. COMPARISON: Imaging from the same date as well as 07/28/2014 FINDINGS: No significant adenopathy within the chest. Mild scattered vascular calcifications without aneurysmal dilatation of the thoracic aorta. The heart is within normal limits in size. No pericardial effusion. No pleural effusion. No pneumothorax. Mild bibasilar scarring and/or atelectasis, left greater than right. The trachea is patent. No acute osseous abnormality within the chest. Cholecystectomy. Prominent lipoma is noted within the distal stomach, measuring up to 5.5 cm. This has slightly increased since the prior examination in 2013. This does appear to have mass effect upon the gastric outlet. The unenhanced liver and spleen are unremarkable. The adrenal glands are unremarkable. The pancreas is unremarkable. The right kidney is unremarkable. The left kidney is not visualized, stable from the prior exam. No abnormal soft tissue mass within the left renal fossa. Scattered vascular calcifications without aneurysmal dilatation of the abdominal aorta. The urinary bladder is unremarkable. The uterus is not visualized, likely surgically absent. No bowel obstruction or pneumatosis. No significant adenopathy, free air, or free fluid within the abdomen or pelvis. Scattered osseous degenerative changes without acute osseous abnormality. IMPRESSION: No acute traumatic abnormality identified. 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 This has increased in size since 2013. Additional postsurgical and chronic findings as described above. Dictated by: Dictated on workstation # [id number]
[2021-04-11] MEDS ORDERED: NS IV 500 ML 500 ML IV ONE (12:30)
[2021-04-11] MEDS ORDERED: ALPRAZolam 0.25 MG (XANAX) TAB PO ONE (12:45)
[2021-04-11] MEDS ORDERED: HYDROcodone/APAP 5 MG/325 MG (LORTAB) TAB PO ONE (12:45)
[2021-04-11 12:46] LABS: BILIRUBIN,URINE NEGATIVE (NEGATIVE); CLARITY,URINE CLEAR; COLOR,URINE YELLOW; GLUCOSE, URINE (UA) NEGATIVE (NEGATIVE); KETONES,URINE NEGATIVE (NEGATIVE); LEUKOCYTE ESTERASE ,URINE NEGATIVE (NEGATIVE); NITRITE,URINE NEGATIVE (NEGATIVE); PROTEIN,URINE 1+ (NEGATIVE)
[2021-04-11 12:54] LABS: BACTERIA,URINE TRACE /HPF; SQUAMOUS EPITHELIAL CELL,UR 0-2 /HPF
[2021-04-11] MEDS ORDERED: ACHD5005 PO (13:24)
--- NOTE | 2021-04-11 13:25 | ED Fall/Injury ---
General Chief Complaint: Trauma-Non Activation Stated Complaint: FELL Nursing Triage Note: TO ED PER W/C ACCOMPIED BY DAUGHTER WHO REPORTS THAT PATIENT HAS NEUROPATHY IN FEET FELL LAST NIGHT LANDING FACE DOWN C/O PAIN IN L HAND,FACE ,NECK ABRASION ACROSS NOSE. 1030 DR TO ROOM C COLLAR PLACED Source: patient, family Exam Limitations: no limitations History of Present Illness Date Seen by Provider: Apr 11, 2021 Time Seen by Provider: 10:30 Initial Comments This 75-year-old woman presents to the emergency room accompanied by her daughter after having a fall with injuries last night. She has neuropathy and difficulty with balance due to loss of sensation in her lower extremities. She fell face forward striking her face, torso, and other anterior surfaces on the floor. There was no loss of consciousness. She does not seem to have any altered mental status. She complains of pain across her face, neck, left hand, lower back and lower abdomen. She also appears to have some mild dementia and daughter assist with the history. She is minimally ambulatory today with a walker. She reports frequent urination. C-collar was applied. Allergies and Home Medications Allergies Coded Allergies: NSAIDS (Non-Steroidal Anti-Inflamma (Verified Allergy, Intermediate, 01/07/14) STATES SHE GETS 'CRAZY' Sulfa (Sulfonamide Antibiotics) (Unverified Allergy, Unknown, 01/07/14) ampicillin (Unverified Allergy, Unknown, 01/07/14) prednisone (Unverified Adverse Reaction, Unknown, 03/06/14) Home Medications ALPRAZolam 0.25 Mg Tablet, 0.25 MG PO TID, (Reported) Allopurinol 100 Mg Tablet, 100 MG PO DAILY, (Reported) Cholecalciferol (Vitamin D3) 25 Mcg Capsule, 25 MCG PO DAILY, (Reported) Dexlansoprazole 60 Mg bp, 60 MG PO DAILY, (Reported) Dicyclomine HCl 20 Mg Tablet, 20 MG PO QID PRN for HEARTBURN, (Reported) Doxazosin Mesylate 2 Mg Tablet, 2 MG PO HS, (Reported) Estrogens Conjugated 1.25 Mg Tab, 2 MG PO DAILY, (Reported) Gabapentin 400 Mg Capsule, 400 MG PO BID, (Reported) Glucos Sul 2Kcl/MSM/Chond/C/Mn 1 Each Capsule, 1 EACH PO DAILY, (Reported) Hydrocodone/Acetaminophen 1 Each Tablet, 1 TAB PO Q6H Prescribed by: RICHELLE THAPA on 05/27/20 1451 Hydrocodone/Acetaminophen 1 Each Tablet, 0.5-1 TAB PO Q6H PRN for PAIN-MODERATE (5-7) Prescribed by: LONI VIVAR on 04/11/21 1325 Imipramine HCl 50 Mg Tablet, 50 MG PO HS, (Reported) Levomefolate/B6/B12/Algal Oil 1 Each Capsule, 1 EACH PO BID, (Reported) Linagliptin 5 Mg Tablet, 5 MG PO DAILY, (Reported) Losartan Potassium 100 Mg Tablet, 100 MG PO DAILY, (Reported) Magnesium Oxide 400 Mg Tablet, 400 MG PO BID, (Reported) Patient Home Medication List Home Medication List Reviewed: Yes Review of Systems Review of Systems Constitutional: no symptoms reported Eyes: No Symptoms Reported Ears, Nose, Mouth, Throat: see HPI Respiratory: no symptoms reported Cardiovascular: no symptoms reported Gastrointestinal: see HPI Genitourinary: frequency Musculoskeletal: see HPI Skin: see HPI Psychiatric/Neurological: See HPI Past Uijexds-Uwpmlr-Vrytmj Hx Past Med/Social Hx: Reviewed and Corrections made Patient Social History Alcohol Use: Denies Use Smoking Status: Never a Smoker 2nd Hand Smoke Exposure: No Recent Infectious Disease Expo: No Recent Hopitalizations: No Immunizations Up To Date Tetanus Booster (TDap): Unknown Date of Influenza Vaccine: Aug 06, 2019 Seasonal Allergies Seasonal Allergies: No Past Medical History Surgeries: Yes Appendectomy, Gallbladder, Hysterectomy, Nephrectomy Respiratory: No Cardiac: Yes High Cholesterol, Hypertension Neurological: Yes Dementia (possible), Neuropathy 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 Disorders: Yes [employer] History: Hysterectomy, Menopausal Genitourinary: Yes (CHRONIC RENAL INSUFFICIENCY, kidney removed after injury from sx) Gastrointestinal: Yes (fatty liver, stomach lipoma) Gastroesophageal Reflux Musculoskeletal: Yes Arthritis, Chronic Back Pain Endocrine: Yes Diabetes, Non-Insulin dep HEENT: No Cancer: No Psychosocial: Yes Anxiety, Depression Integumentary: Yes (mass R hand) Blood Disorders: No Adverse Reaction/Blood Tranf: No Family Medical History Cataract 03 FATHER 03 MOTHER 09 BROTHER 09 BROTHER Dementia 03 MOTHER Family history: Allergy 09 BROTHER Family history: Arthritis 03 MOTHER Family history: Diabetes mellitus 09 BROTHER Family history: Glaucoma 03 MOTHER Family history: Osteoporosis 03 MOTHER Hereditary disease 03 MOTHER Prostate cancer 03 FATHER Stroke 03 MOTHER No Family History of: Abdominal aortic aneurysm Kenney's disease Alcoholism Aphasia Cancer Cancer of colon Chest pain Congenital heart disease Congestive heart failure Cystic fibrosis Dysphagia Family history: Alzheimer's disease Family history: Asthma Family history: Breast disease Family history: Cardiovascular disease Family history: Coronary thrombosis Family history: Gastrointestinal disease Family history: Hypertension Family history: Thyroid disorder Headache Hearing loss Heart disease History of - anemia History of - disorder History of - respiratory disease History of drug abuse Human immunodeficiency virus (HIV) seropositivity Hypercholesterolemia Infertile Kidney disease Malignant neoplasm of lung Myocardial infarction Parkinson's disease Psychotic disorder Seizure disorder Tuberculosis Visual impairment Physical Exam Vital Signs Vital Signs - First Documented 04/11/21 04/11/21 10:19 14:24 Temp 36.6 Pulse 82 Resp 18 B/P (MAP) 206/74 (118) Pulse Ox 95 O2 Delivery Room Air Capillary Refill : Less Than 3 Seconds Height, Weight, BMI Height: 5'0.00" Weight: 158lbs. 0.0oz. 71.684837gv; 29.00 BMI Method:Stated General Appearance: WD/WN, mild distress HEENT: PERRL/EOMI, normal ENT inspection, pharynx normal, other (abrasion over the nose, facial TTP, teeth intacet) Neck: normal inspection, limited range of motion, tender midline Cardiovascular: regular rate, rhythm, no edema, no murmur Respiratory: lungs clear, normal breath sounds, no respiratory distress, no accessory muscle use Gastrointestinal: normal bowel sounds, soft, tenderness (Lower abdomen) Back: other (lower back generalized TTP) Extremities: normal inspection, no pedal edema 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: environmental aid II-XII nml as tested, no motor/sensory deficits, alert, normal mood/affect Skin: normal color, warm/dry Progress/Results/Core Measures Results/Orders Lab Results Laboratory Tests Test 04/11/21 10:50 04/11/21 12:40 Range/Units White Blood Count 6.9 4.3-11.0 10^3/uL Red Blood Count 4.01 3.80-5.11 10^6/uL Hemoglobin 12.1 11.5-16.0 g/dL Hematocrit 36 35-52 % Mean Corpuscular Volume 89 80-99 fL Mean Corpuscular Hemoglobin 30 25-34 pg Mean Corpuscular Hemoglobin Concent 34 32-36 g/dL Red Cell Distribution Width 12.2 10.0-14.5 % Platelet Count 153 130-400 10^3/uL Mean Platelet Volume 9.7 9.0-12.2 fL Immature Granulocyte % (Auto) 0 % Neutrophils (%) (Auto) 67 42-75 % Lymphocytes (%) (Auto) 22 12-44 % Monocytes (%) (Auto) 9 0-12 % Eosinophils (%) (Auto) 1 0-10 % Basophils (%) (Auto) 0 0-10 % Neutrophils # (Auto) 4.7 1.8-7.8 10^3/uL Lymphocytes # (Auto) 1.6 1.0-4.0 10^3/uL Monocytes # (Auto) 0.6 0.0-1.0 10^3/uL Eosinophils # (Auto) 0.1 0.0-0.3 10^3/uL Basophils # (Auto) 0.0 0.0-0.1 10^3/uL Immature Granulocyte # (Auto) 0.0 0.0-0.1 10^3/uL Sodium Level 128 L 135-145 MMOL/L Potassium Level 4.7 3.6-5.0 MMOL/L Chloride Level 95 L 98-107 MMOL/L Carbon Dioxide Level 21 21-32 MMOL/L Anion Gap 12 5-14 MMOL/L Blood Urea Nitrogen 21 H 7-18 MG/DL Creatinine 1.27 0.60-1.30 MG/DL Estimat Glomerular Filtration Rate 41 BUN/Creatinine Ratio 17 Glucose Level 127 H 70-105 MG/DL Calcium Level 9.7 8.5-10.1 MG/DL Corrected Calcium 9.9 8.5-10.1 MG/DL Magnesium Level 1.8 1.6-2.4 MG/DL Total Bilirubin 0.5 0.1-1.0 MG/DL Aspartate Amino Transf (AST/SGOT) 21 5-34 U/L Alanine Aminotransferase (ALT/SGPT) 19 0-55 U/L Alkaline Phosphatase 64 40-136 U/L Total Protein 7.1 6.4-8.2 GM/DL Albumin 3.7 3.2-4.5 GM/DL Urine Color YELLOW Urine Clarity CLEAR Urine pH 7.0 5-9 Urine Specific [place] 1.010 L 1.016-1.022 Urine Protein 1+ H NEGATIVE Urine Glucose (UA) NEGATIVE NEGATIVE Urine Ketones NEGATIVE NEGATIVE Urine Nitrite NEGATIVE NEGATIVE Urine Bilirubin NEGATIVE NEGATIVE Urine Urobilinogen 0.2 < = 1.0 MG/DL Urine Leukocyte Esterase NEGATIVE NEGATIVE Urine RBC (Auto) NEGATIVE NEGATIVE Urine RBC NONE /HPF Urine WBC NONE /HPF Urine Squamous Epithelial Cells 0-2 /HPF Urine Crystals NONE /LPF Urine Bacteria TRACE /HPF Urine Casts NONE /LPF Urine Mucus NEGATIVE /LPF Urine Culture Indicated NO My Orders Orders - LONI RUBIO MD Ed Iv/Invasive Line Start (04/11/21 10:35) Fentanyl Inj (Sublimaze Injection) (04/11/21 10:45) Ct Head/Face/Cervical Wo (04/11/21 10:36) Cbc With Automated Diff (04/11/21 10:38) Comprehensive Metabolic Panel (04/11/21 10:38) Magnesium (04/11/21 10:38) Ua Culture If Indicated (04/11/21 10:38) Wrist, Left, 3 Views Or More (04/11/21 10:40) Hand, Left, 3 Views (04/11/21 10:40) Ct Chest/Abdomen/Pelvis Wo (04/11/21 10:55) Ns Iv 500 Ml (Sodium Chloride 0.9%) (04/11/21 12:30) Hydrocodone/Apap 5/325 Tablet (Lortab 5 (04/11/21 12:45) Alprazolam Tablet (Xanax Tablet) (04/11/21 12:45) Medications Given in ED Vital Signs/I&O 04/11/21 04/11/21 10:19 14:24 Temp 36.6 Pulse 82 73 Resp 18 18 B/P (MAP) 206/74 (118) 189/64 Pulse Ox 95 98 O2 Delivery Room Air Blood Pressure Mean: 118 Progress Progress Note : Progress Note Pain was treated with fentanyl and later hydrocodone. CT from head through pelvis revealed no acute injuries. Hyponatremia was identified and was treated with a normal saline 500 mL bolus. Left hand was x-rayed and no injury was identified. See discharge instructions for further discussion. Patient does report poor appetite and not eating much which may be a source of her hyponatremia. She does have a lipoma of the stomach which might be affecting her appetite. She is to discuss this further with her primary care provider, and we reviewed ways to provide nutritional support. Diagnostic Imaging Diagonstic Imaging: CT Plain Films/CT/US/NM/MRI: facial bones, c-spine, head Comments CT viewed by me and report reviewed. NAME: HERLINDA [facility]OMAS [facility] REC#: [id number] PT STATUS: DEP ER : 1945 PHYSICIAN: LONI RUBIO MD ADMIT DATE: 04/11/21/ER Signed Date of Exam:04/11/21 CT HEAD/FACE/CERVICAL WO PROCEDURE: CT head, face, and cervical spine without contrast. TECHNIQUE: Multiple contiguous axial images were obtained through the head, neck, and facial bones without the use of intravenous contrast. Sagittal and coronal reformations through the cervical spine and facial bones were also performed. Auto Exposure Controls were utilized during the CT exam to meet ALARA standards for radiation dose reduction. INDICATION: Trauma, fall COMPARISON: Imaging from the same date as well as from 04/21/2020. FINDINGS: There is mild atrophy. No intracranial hemorrhage, intracranial mass, mass effect, midline shift, herniation, hydrocephalus, or extra-axial fluid collection. Periventricular and subcortical white matter hypodensities are present, most consistent with mild background chronic small vessel white matter ischemic disease. No definite CT evidence of an acute ischemic infarction. The orbits are unremarkable. The paranasal sinuses are clear. The calvarium and extracalvarial soft tissues are unremarkable. The paranasal sinuses are clear. Zygomatic arches are intact. No temporomandibular joint dislocation. No acute facial fracture. No significant nasal septal deviation. The orbits are unremarkable. Parapharyngeal fat is symmetric and well-maintained. Muscles of mastication are unremarkable. Alignment of the cervical spine is well maintained. Alignment of the atlantooccipital joint is well maintained. Besides endplate degenerative changes, vertebral body heights are otherwise well-maintained. Severe disc space height loss at C6/C7 with associated anterior osteophytes and disc osteophyte complex. No acute fracture within the cervical spine. Scattered facet joint degenerative changes and uncovertebral joint hypertrophy are present. No severe osseous central canal stenosis. No apical pneumothorax. Mild scattered vascular calcifications. Paraspinal soft tissues are otherwise unremarkable. IMPRESSION: No acute intracranial abnormality with mild atrophy and mild background chronic small vessel white matter ischemic disease. No acute facial fracture. No acute osseous abnormality within the cervical spine with mild to moderate multilevel degenerative changes, greatest at the C6/C7 level. Dictated by: Dictated on workstation # [id number] Dict: 04/11/21 1122 Trans: 04/11/211745 [facility] [id number] Interpreted by: JUICE PETERSON MD Electronically signed by: JUICE PETERSON MD 04/11/211745 Diagonstic Imaging: Xray Plain Films/CT/US/NM/MRI: hand (and wrist) Comments X-rays of the left hand and wrist viewed by me and report reviewed. No acute injuries were identified. Diagonstic Imaging: CT Plain Films/CT/US/NM/MRI: chest, abdomen, pelvis Comments Viewed by me and reports reviewed. NAME: HERLINDA THOMAS [facility] REC#: [id number] PT STATUS: DEP ER : 1945 PHYSICIAN: LONI RUBIO MD ADMIT DATE: 04/11/21/ER Signed Date of Exam:04/11/21 CT CHEST/ABDOMEN/PELVIS WO PROCEDURE: CT chest, abdomen, and pelvis without contrast. TECHNIQUE: Multiple contiguous axial images were obtained through the chest, abdomen, and pelvis without the use of intravenous contrast. Auto Exposure Controls were utilized during the CT exam to meet ALARA standards for radiation dose reduction. INDICATION: Fall, abdominal pain. COMPARISON: Imaging from the same date as well as 07/28/2014 FINDINGS: No significant adenopathy within the chest. Mild scattered vascular calcifications without aneurysmal dilatation of the thoracic aorta. The heart is within normal limits in size. No pericardial effusion. No pleural effusion. No pneumothorax. Mild bibasilar scarring and/or atelectasis, left greater than right. The trachea is patent. No acute osseous abnormality within the chest. Cholecystectomy. Prominent lipoma is noted within the distal stomach, measuring up to 5.5 cm. This has slightly increased since the prior examination in 2013. This does appear to have mass effect upon the gastric outlet. The unenhanced liver and spleen are unremarkable. The adrenal glands are unremarkable. The pancreas is unremarkable. The right kidney is unremarkable. The left kidney is not visualized, stable from the prior exam. No abnormal soft tissue mass within the left renal fossa. Scattered vascular calcifications without aneurysmal dilatation of the abdominal aorta. The urinary bladder is unremarkable. The uterus is not visualized, likely surgically absent. No bowel obstruction or pneumatosis. No significant adenopathy, free air, or free fluid within the abdomen or pelvis. Scattered osseous degenerative changes without acute osseous abnormality. IMPRESSION: No acute traumatic abnormality identified. 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 This has increased in size since 2013. Additional postsurgical and chronic findings as described above. Dictated by: Dictated on workstation # [id number] Dict: 04/11/21 1132 Trans: 04/11/211746 [facility] [id number] Interpreted by: JUICE PETERSON MD Electronically signed by: JUICE PETERSON MD 04/11/211746 Departure Impression Primary Impression: Fall on same level Qualified Codes: W18.30XA - Fall on same level, unspecified, initial encounter Additional Impressions: Hyponatremia Facial contusion Qualified Codes: S00.83XA - Contusion of other part of head, initial encounter Low back pain Qualified Codes: M54.5 - Low back pain Left hand pain Disposition: 01 HOME, SELF-CARE Condition: Improved Departure-Patient Inst. Decision time for Depature: 13:21 Referrals: ARACELI WELCH DO (PCP/Family) Primary Care Physician Patient Instructions: Hyponatremia (DC) Add. Discharge Instructions: Follow-up with your primary care provider by middle of this week. You need to have your labs checked again in the very near future to monitor your sodium level. Try to eat a well-balanced diet. For the next couple of days you may lightly salt your food to improve your sodium level. Drink plenty of clear liquids to stay well-hydrated. For pain you may take Tylenol as usual. For more intense pain you may use hydrocodone as prescribed. Use hydrocodone with caution especially when taking other sedating medications like Xanax. Be aware that hydrocodone also has some Tylenol with it. According to your instructions from your specialist you should not exceed 2000 mg of Tylenol (acetaminophen) in 1 day. Walk only with your walker. Follow-up with your urologist or your primary care provider regarding urinary frequency. Call with questions or concerns. Return to care if you have worsening symptoms. All discharge instructions reviewed with patient and/or family. Voiced understanding. Scripts Hydrocodone/Acetaminophen (Hydrocodone-Acetamin 5-325 mg) 1 Each Tablet 0.5-1 TAB PO Q6H PRN for PAIN-MODERATE (5-7), #5 TAB Prov: LONI RUBIO MD 04/11/21 Copy Copies To 1: ARACELI WELCH JOSHUA T MD Apr 11, 2021 13:25
[2021-04-11 14:24] VITALS: BP 189/64
== END 2021-04-11 14:24 | disposition home or self-care (01) ==
LOC: EDUNIT# 10:14 → ER 10:15
DX: S00.83XA Contusion of other part of head, initial encounter (principal); M54.5 Low back pain; M79.642 Pain in left hand; E87.1 Hypo-osmolality and hyponatremia; R10.30 Lower abdominal pain, unspecified; I12.9 Hypertensive chronic kidney disease with stage 1 through stage 4 chronic kidney disease, or unspecified chronic kidney disease; E11.22 Type 2 diabetes mellitus with diabetic chronic kidney disease; N18.9 Chronic kidney disease, unspecified; E11.40 Type 2 diabetes mellitus with diabetic neuropathy, unspecified; F41.9 Anxiety disorder, unspecified; F32.9 Major depressive disorder, single episode, unspecified; G89.29 Other chronic pain; M54.9 Dorsalgia, unspecified; K21.9 Gastro-esophageal reflux disease without esophagitis; Z79.891 Long term (current) use of opiate analgesic; Z79.84 Long term (current) use of oral hypoglycemic drugs; Z79.899 Other long term (current) drug therapy; W01.198A Fall on same level from slipping, tripping and stumbling with subsequent striking against other object, initial encounter
CPT/HCPCS: 36415; 70450; 70486; 71250; 72125; 73110; 73130; 74176; 80053; 81000; 83735; 85025

== ENCOUNTER 2021-06-08 12:34 | Observation (INO) | payer MEDICARE, BC ==
[~2021-06-08] VITALS: Ht 152.4 cm; Wt 78.5 kg
[~2021-06-08 12:34] MED LIST changes: +ACHD5005 PO
--- NOTE | 2021-06-08 13:03 | ED Abdominal Pain ---
General Chief Complaint: Rect Problems Stated Complaint: RECTAL BLEEDING Source of Information: Patient History of Present Illness Date Seen by Provider: Jun 08, 2021 Time Seen by Provider: 12:45 Initial Comments Very pleasant 75-year-old female with past medical history of hypertension, external and internal hemorrhoids, and solitary kidney coming in due to hemorrhoid bleeding. She states it started bleeding again on Monday. This has been an ongoing issue for years and comes and goes. She has had a normal colonoscopy otherwise roughly 1 year ago. She is not taking any blood thinners or antiplatelet agents. Typically starts when she is constipated. It is typically a consistent drip when it is happening, will stop for some period of time, and then when she stands up will have a little bit more bleeding for a small amount of time before it slows down again. She was unable to really quantify how much bleeding there has been. No lightheadedness, chest pain, shortness of breath, nausea, vomiting, diarrhea, or any other concerns. She states she is quite constipated often. There is no pain associated with this really. Allergies and Home Medications Allergies Coded Allergies: NSAIDS (Non-Steroidal Anti-Inflamma (Verified Allergy, Intermediate, 01/07/14) STATES SHE GETS 'CRAZY' Sulfa (Sulfonamide Antibiotics) (Unverified Allergy, Unknown, 01/07/14) ampicillin (Unverified Allergy, Unknown, 01/07/14) prednisone (Unverified Adverse Reaction, Unknown, 03/06/14) Home Medications ALPRAZolam 0.25 Mg Tablet, 0.25 MG PO TID, (Reported) Allopurinol 100 Mg Tablet, 100 MG PO DAILY, (Reported) Cholecalciferol (Vitamin D3) 25 Mcg Capsule, 25 MCG PO DAILY, (Reported) Dexlansoprazole 60 Mg , 60 MG PO DAILY, (Reported) Dicyclomine HCl 20 Mg Tablet, 20 MG PO QID PRN for HEARTBURN, (Reported) Doxazosin Mesylate 2 Mg Tablet, 2 MG PO HS, (Reported) Estrogens Conjugated 1.25 Mg Tab, 2 MG PO DAILY, (Reported) Gabapentin 400 Mg Capsule, 400 MG PO BID, (Reported) Glucos Sul 2Kcl/MSM/Chond/C/Mn 1 Each Capsule, 1 EACH PO DAILY, (Reported) Hydrocodone/Acetaminophen 1 Each Tablet, 1 TAB PO Q6H Prescribed by: RICHELLE THAPA on 05/27/20 1451 Hydrocodone/Acetaminophen 1 Each Tablet, 0.5-1 TAB PO Q6H PRN for PAIN-MODERATE (5-7) Prescribed by: LONI VIVAR on 04/11/21 1325 Imipramine HCl 50 Mg Tablet, 50 MG PO HS, (Reported) Levomefolate/B6/B12/Algal Oil 1 Each Capsule, 1 EACH PO BID, (Reported) Linagliptin 5 Mg Tablet, 5 MG PO DAILY, (Reported) Losartan Potassium 100 Mg Tablet, 100 MG PO DAILY, (Reported) Magnesium Oxide 400 Mg Tablet, 400 MG PO BID, (Reported) Patient Home Medication List Home Medication List Reviewed: Yes Review of Systems Review of Systems Constitutional: no symptoms reported; No fever EENTM: No Symptoms Reported Respiratory: No Symptoms Reported Cardiovascular: No Symptoms Reported; Denies Chest Pain Gastrointestinal: Denies Abdominal Pain; Constipated; Denies Diarrhea, Denies Nausea, Denies Vomiting Genitourinary: No Symptoms Reported Musculoskeletal: no symptoms reported Skin: no symptoms reported; No rash Psychiatric/Neurological: No Symptoms Reported Endocrine: No Symptoms Reported Hematologic/Lymphatic: No Symptoms Reported Past Zhgeocl-Qntlwa-Cnzmwa Hx Patient Social History Tobacco Use?: No Immunizations Up To Date Tetanus Booster (TDap): Unknown Seasonal Allergies Seasonal Allergies: No Past Medical History Surgeries: Yes Appendectomy, Gallbladder, Hysterectomy, Nephrectomy Respiratory: No Cardiac: Yes High Cholesterol, Hypertension Neurological: Yes Dementia, Neuropathy 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, 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 Genitourinary: Yes (CHRONIC RENAL INSUFFICIENCY, kidney removed after injury from sx) Gastrointestinal: Yes (fatty liver, stomach lipoma) Gastroesophageal Reflux Musculoskeletal: Yes Arthritis, Chronic Back Pain Endocrine: Yes Diabetes, Non-Insulin dep HEENT: No Cancer: No Psychosocial: Yes Anxiety, Depression Integumentary: Yes (mass R hand) Blood Disorders: No Adverse Reaction/Blood Tranf: No Family Medical History Cataract 03 FATHER 03 MOTHER 09 BROTHER 09 BROTHER Dementia 03 MOTHER Family history: Allergy 09 BROTHER Family history: Arthritis 03 MOTHER Family history: Diabetes mellitus 09 BROTHER Family history: Glaucoma 03 MOTHER Family history: Osteoporosis 03 MOTHER Hereditary disease 03 MOTHER Prostate cancer 03 FATHER Stroke 03 MOTHER No Family History of: Abdominal aortic aneurysm Kenney's disease Alcoholism Aphasia Cancer Cancer of colon Chest pain Congenital heart disease Congestive heart failure Cystic fibrosis Dysphagia Family history: Alzheimer's disease Family history: Asthma Family history: Breast disease Family history: Cardiovascular disease Family history: Coronary thrombosis Family history: Gastrointestinal disease Family history: Hypertension Family history: Thyroid disorder Headache Hearing loss Heart disease History of - anemia History of - disorder History of - respiratory disease History of drug abuse Human immunodeficiency virus (HIV) seropositivity Hypercholesterolemia Infertile Kidney disease Malignant neoplasm of lung Myocardial infarction Parkinson's disease Psychotic disorder Seizure disorder Tuberculosis Visual impairment Physical Exam Vital Signs Vital Signs - First Documented 06/08/21 12:35 Temp 36.0 Pulse 80 Resp 18 B/P (MAP) 168/57 (94) Pulse Ox 97 O2 Delivery Room Air Capillary Refill : Height/Weight/BMI Height: 5'0.00" Weight: 158lbs. 0.0oz. [id number]; 29.00 BMI Method:Stated General Appearance: WD/WN, no apparent distress HEENT: PERRL/EOMI, normal ENT inspection, pharynx normal Neck: non-tender, full range of motion Respiratory: chest non-tender, lungs clear, normal breath sounds, no respiratory distress, no accessory muscle use Cardiovascular: normal peripheral pulses, regular rate, rhythm Gastrointestinal: normal bowel sounds, non tender, soft; No distended, No guarding, No rebound Rectal: hemorrhoids, other (External hemorrhoid that is not thrombosed, internal hemorrhoid that is not prolapsed with minimal bleeding coming from it, exam was performed with nurse in room) Extremities: normal range of motion, non-tender, normal inspection Back: normal inspection, no vertebral tenderness 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: no motor/sensory deficits, alert, normal mood/affect, o riented x 3 Skin: normal color, warm/dry Lymphatic: no adenopathy Progress/Results/Core Measures Results/Orders Lab Results Laboratory Tests Test 06/08/21 12:45 Range/Units White Blood Count 6.8 4.3-11.0 10^3/uL Red Blood Count 4.06 3.80-5.11 10^6/uL Hemoglobin 12.0 11.5-16.0 g/dL Hematocrit 36 35-52 % Mean Corpuscular Volume 88 80-99 fL Mean Corpuscular Hemoglobin 30 25-34 pg Mean Corpuscular Hemoglobin Concent 33 32-36 g/dL Red Cell Distribution Width 11.9 10.0-14.5 % Platelet Count 191 130-400 10^3/uL Mean Platelet Volume 10.0 9.0-12.2 fL Immature Granulocyte % (Auto) 0 % Neutrophils (%) (Auto) 71 42-75 % Lymphocytes (%) (Auto) 20 12-44 % Monocytes (%) (Auto) 7 0-12 % Eosinophils (%) (Auto) 1 0-10 % Basophils (%) (Auto) 0 0-10 % Neutrophils # (Auto) 4.8 1.8-7.8 10^3/uL Lymphocytes # (Auto) 1.4 1.0-4.0 10^3/uL Monocytes # (Auto) 0.5 0.0-1.0 10^3/uL Eosinophils # (Auto) 0.1 0.0-0.3 10^3/uL Basophils # (Auto) 0.0 0.0-0.1 10^3/uL Immature Granulocyte # (Auto) 0.0 0.0-0.1 10^3/uL Prothrombin Time 13.1 12.2-14.7 SEC INR Comment 1.0 0.8-1.4 Sodium Level 125 *L 135-145 MMOL/L Potassium Level 4.6 3.6-5.0 MMOL/L Chloride Level 91 L 98-107 MMOL/L Carbon Dioxide Level 22 21-32 MMOL/L Anion Gap 12 5-14 MMOL/L Blood Urea Nitrogen 18 7-18 MG/DL Creatinine 1.27 0.60-1.30 MG/DL Estimat Glomerular Filtration Rate 41 BUN/Creatinine Ratio 14 Glucose Level 130 H 70-105 MG/DL Calcium Level 9.8 8.5-10.1 MG/DL Corrected Calcium 10.0 8.5-10.1 MG/DL Total Bilirubin 0.4 0.1-1.0 MG/DL Aspartate Amino Transf (AST/SGOT) 24 5-34 U/L Alanine Aminotransferase (ALT/SGPT) 17 0-55 U/L Alkaline Phosphatase 62 40-136 U/L Total Protein 7.1 6.4-8.2 GM/DL Albumin 3.8 3.2-4.5 GM/DL My Orders Orders - ETHAN DUTTA MD Cbc With Automated Diff (06/08/21 12:53) Comprehensive Metabolic Panel (06/08/21 12:53) Protime With Inr (06/08/21 12:53) Type And Screen (06/08/21 14:21) Vital Signs/I&O 06/08/21 12:35 Temp 36.0 Pulse 80 Resp 18 B/P (MAP) 168/57 (94) Pulse Ox 97 O2 Delivery Room Air Progress Progress Note : Progress Note 75-year-old female with above history coming in due to bleeding from her hemorrhoid. ABCs were intact and vitals were stable on presentation. On exam she does have external and internal hemorrhoids. The bleeding does appear to be very slow drip from the internal hemorrhoid that is not thrombosed or prolapsed. Will get basic labs including CBC to assess for the significance of her bleeding. Hemoglobin is 12 which is her baseline. Sodium is 125 with it being 128 a couple months ago. She has no weakness or confusion and given the recent sodium being in the 120s as well this is likely chronic in nature, however is continuing to trend down. The patient had one episode of bleeding while having a bowel movement and it was roughly 1cup of clotted blood within the bedside commode. Vitals remained stable at this time. Afterwards it was continuing to be a slow drip of blood. Consulted with general surgery and sent a type and screen. Do not believe she needs blood products at this time but I do believe she will require admission for further observation. I discussed the case with Dr. WELCH who will be the admitting physician under observation. Departure Impression Primary Impression: Internal hemorrhoid, bleeding Additional Impression: Hyponatremia Disposition: ADMITTED INPATIENT Condition: Stable Admissions Decision to Admit Reason: Admit from ER (General) Decision to Admit/Date: Jun 08, 2021 Time/Decision to Admit Time: 14:29 Departure-Patient Inst. Referrals: TANYA KO JACQUELINE S DO (PCP/Family) Primary Care Physician ETHAN DUTTA MD Jun 08, 2021 13:03
[2021-06-08 13:04] LABS: BASOPHILS % (AUTO) 0 % (0-10); EOSINOPHILS # (AUTO) 0.1 10^3/uL (0.0-0.3); EOSINOPHILS % (AUTO) 1 % (0-10); HEMATOCRIT 36 % (35-52); LYMPHOCYTES # (AUTO) 1.4 10^3/uL (1.0-4.0); LYMPHOCYTES % (AUTO) 20 % (12-44); MEAN CORPUSCULAR HEMOGLOBIN 30 pg (25-34); MEAN CORPUSCULAR HGB CONC 33 g/dL (32-36); MEAN CORPUSCULAR VOLUME 88 fL (80-99); MONOCYTES # (AUTO) 0.5 10^3/uL (0.0-1.0); MONOCYTES % (AUTO) 7 % (0-12); NEUTROPHILS # (AUTO) 4.8 10^3/uL (1.8-7.8); NEUTROPHILS % (AUTO) 71 % (42-75); PLATELET COUNT 191 10^3/uL (130-400); WHITE BLOOD COUNT 6.8 10^3/uL (4.3-11.0)
[2021-06-08 13:12] LABS: ALBUMIN 3.8 GM/DL (3.2-4.5); POTASSIUM 4.6 MMOL/L (3.6-5.0)
[2021-06-08 13:13] LABS: PROTHROMBIN TIME PATIENT 13.1 SEC (12.2-14.7)
[2021-06-08 13:14] LABS: CALCIUM 9.8 MG/DL (8.5-10.1)
[2021-06-08 13:15] LABS: TOTAL PROTEIN 7.1 GM/DL (6.4-8.2)
[2021-06-08 13:17] LABS: BILIRUBIN,TOTAL 0.4 MG/DL (0.1-1.0)
[2021-06-08 13:18] LABS: CREATININE SERUM 1.27 MG/DL (0.60-1.30)
--- NOTE | 2021-06-08 15:09 | Consultation - Surgery ---
ELEN BRANCH 06/08/21 1509: History of Present Illness History of Present Illness Patient Consulted On(stella/time) 06/08/21 14:50 Date Seen by Provider: Jun 08, 2021 Time Seen by Provider: 14:50 Reason for Visit: Bleeding internal and external hemorrhoids History of Present Illness Patient states she has had the hemorrhoids for a long time. They are not really painful unless she slides across a eubanks to get out or sits for a long period of time. She started bleeding on monday at 0030 and bled all through monday until the evening. She went to the bathroom monday night and stated there was no blood. When she went to the bathroom on monday at 0530 she noticed blood. She states normally using pressure will help stop the bleeding, but there was no stopping the flow that started on monday. She has used a foam medication in the past that does help, she cannot recall the name. She states cream does not work. Patient states she has always had bowel problems and really has to bear down to pass stool Allergies and Home Medications Allergies Coded Allergies: NSAIDS (Non-Steroidal Anti-Inflamma (Verified Allergy, Intermediate, 01/07/14) STATES SHE GETS 'CRAZY' Sulfa (Sulfonamide Antibiotics) (Unverified Allergy, Unknown, 01/07/14) ampicillin (Unverified Allergy, Unknown, 01/07/14) prednisone (Unverified Adverse Reaction, Unknown, 03/06/14) Home Medications ALPRAZolam 0.25 Mg Tablet, 0.25 MG PO TID PRN for ANXIETY, (Reported) Last Action: Continued Allopurinol 100 Mg Tablet, 100 MG PO DAILY, (Reported) Last Action: Reviewed Cholecalciferol (Vitamin D3) 25 Mcg Capsule, 25 MCG PO DAILY, (Reported) Last Action: Reviewed Dexlansoprazole 60 Mg , 60 MG PO DAILY, (Reported) Last Action: Reviewed Dicyclomine HCl 20 Mg Tablet, 20 MG PO QID PRN for ABDOMINAL CRAMPING, (Reported) Last Action: Reviewed Doxazosin Mesylate 2 Mg Tablet, 2 MG PO HS, (Reported) Last Action: Reviewed Estrogens Conjugated 1.25 Mg Tab, 1.25 MG PO DAILY, (Reported) Last Action: Reviewed Gabapentin 400 Mg Capsule, 400 MG PO BID, (Reported) Last Action: Reviewed Glucos Sul 2Kcl/MSM/Chond/C/Mn 1 Each Capsule, 1 EACH PO DAILY, (Reported) Last Action: Reviewed Imipramine HCl 50 Mg Tablet, 50 MG PO HS, (Reported) Last Action: Reviewed Levomefolate/B6/B12/Algal Oil 1 Each Capsule, 1 EACH PO BID, (Reported) Last Action: Reviewed Linagliptin 5 Mg Tablet, 5 MG PO DAILY, (Reported) Last Action: Reviewed Losartan Potassium 100 Mg Tablet, 100 MG PO DAILY, (Reported) Last Action: Reviewed Magnesium Oxide 400 Mg Tablet, 400 MG PO DAILY PRN for MUSCLE CRAMPS, (Reported) HOLD FOR LOOSE STOOLS Last Action: Reviewed Past Zhhmjiw-Epocrz-Wdzaod Hx Patient Social History Smoking Status: Never a Smoker 2nd Hand Smoke Exposure: No Recent Hopitalizations: No Alcohol Use?: No Have you traveled recently?: No Immunizations Up To Date Tetanus Booster (TDap): Unknown Date of Influenza Vaccine: Aug 06, 2019 Seasonal Allergies Seasonal Allergies: No Surgeries History of Surgeries: Yes Surgeries: Appendectomy, Gallbladder, Hysterectomy, Nephrectomy Respiratory History of Respiratory Disorde: No Cardiovascular History of Cardiac Disorders: Yes Cardiac Disorders: High Cholesterol, Hypertension Neurological History of Neurological Disord: Yes Neurological Disorders: Dementia, Neuropathy 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 System Hx 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 Disorders: 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, 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 Genitourinary History of Genitourinary Disor: Yes (CHRONIC RENAL INSUFFICIENCY, kidney removed after injury from sx) Gastrointestinal History of Gastrointestinal Di: Yes (fatty liver, stomach lipoma) Gastrointestinal Disorders: Gastroesophageal Reflux Musculoskeletal History of Musculoskeletal Dis: Yes Musculoskeletal Disorders: Arthritis, Chronic Back Pain Endocrine History of Endocrine Disorders: Yes Endocrine Disorders: Diabetes, Non-Insulin dep HEENT History of HEENT Disorders: No Cancer History of Cancer: No Psychosocial History of Psychiatric Problem: Yes Behavioral Health Disorders: Anxiety, Depression Integumentary History of Skin or Integumenta: Yes (mass R hand) Blood Transfusions History of Blood Disorders: No Adverse Reaction to a Blood Tr: No Family Medical History Family Medial History: Cataract 03 FATHER 03 MOTHER 09 BROTHER 09 BROTHER Dementia 03 MOTHER Family history: Allergy 09 BROTHER Family history: Arthritis 03 MOTHER Family history: Diabetes mellitus 09 BROTHER Family history: Glaucoma 03 MOTHER Family history: Osteoporosis 03 MOTHER Hereditary disease 03 MOTHER Prostate cancer 03 FATHER Stroke 03 MOTHER No Family History of: Abdominal aortic aneurysm Kenney's disease Alcoholism Aphasia Cancer Cancer of colon Chest pain Congenital heart disease Congestive heart failure Cystic fibrosis Dysphagia Family history: Alzheimer's disease Family history: Asthma Family history: Breast disease Family history: Cardiovascular disease Family history: Coronary thrombosis Family history: Gastrointestinal disease Family history: Hypertension Family history: Thyroid disorder Headache Hearing loss Heart disease History of - anemia History of - disorder History of - respiratory disease History of drug abuse Human immunodeficiency virus (HIV) seropositivity Hypercholesterolemia Infertile Kidney disease Malignant neoplasm of lung Myocardial infarction Parkinson's disease Psychotic disorder Seizure disorder Tuberculosis Visual impairment Review of Systems-General Constitutional: No chills, No dizziness; weakness (had a little weakness this morning when couldn't get blood stopped) EENTM: No blurred vision, No vision loss Respiratory: cough (pt states has a minor cough sometimes); No short of breath Cardiovascular: No chest pain, No palpitations Gastrointestinal: No abdominal pain; constipation (patient feels like she has it all of the time unless she takes magnesium and stool softeners.. she can't take them when she travels); No nausea, No vomiting Physical Exam-General Problems Physical Exam Vital Signs Vital Signs - First Documented 06/08/21 12:35 Temp 36.0 Pulse 80 Resp 18 B/P (MAP) 168/57 (94) Pulse Ox 97 O2 Delivery Room Air Capillary Refill : Less Than 3 Seconds Respiratory: chest non-tender, lungs clear, normal breath sounds, no respiratory distress, no accessory muscle use Cardiovascular: regular rate, rhythm; No tachycardia Gastrointestinal: normal bowel sounds, non tender, soft Data Review Labs Laboratory Tests 06/08/21 12:45: White Blood Count 6.8, Red Blood Count 4.06, Hemoglobin 12.0, Hematocrit 36, Me an Corpuscular Volume 88, Mean Corpuscular Hemoglobin 30, Mean Corpuscular Hemoglobin Concent 33, Red Cell Distribution Width 11.9, Platelet Count 191, Mean Platelet Volume 10.0, Immature Granulocyte % (Auto) 0, Neutrophils (%) (Auto) 71, Lymphocytes (%) (Auto) 20, Monocytes (%) (Auto) 7, Eosinophils (%) (Auto) 1, Basophils (%) (Auto) 0, Neutrophils # (Auto) 4.8, Lymphocytes # (Auto) 1.4, Monocytes # (Auto) 0.5, Eosinophils # (Auto) 0.1, Basophils # (Auto) 0.0, Immature Granulocyte # (Auto) 0.0, Prothrombin Time 13.1, INR Comment 1.0, Sodium Level 125*L, Potassium Level 4.6, Chloride Level 91L, Carbon Dioxide Level 22, Anion Gap 12, Blood Urea Nitrogen 18, Creatinine 1.27, Estimat Glomerular Filtration Rate 41, BUN/Creatinine Ratio 14, Glucose Level 130H, Calcium Level 9.8, Corrected Calcium 10.0, Total Bilirubin 0.4, Aspartate Amino Transf (AST/SGOT) 24, Alanine Aminotransferase (ALT/SGPT) 17, Alkaline Phosphatase 62, Total Protein 7.1, Albumin 3.8 Assessment/Plan Assessment/Plan Assessment/Plan 1. Internal hemorrhoid bleeding 2. external hemorrhoid bleeding plan: Monitor blood loss and labs Discuss noninvasive management options Consider discussing other options for patient RICHELLE THAPA DO 06/08/21 1750: History of Present Illness History of Present Illness Time Seen by Provider: 17:22 History of Present Illness Surgery asked to consult regarding rectal bleed. Pt stated she is still bleeding today, tried to hold pressure this am "that usually stops it, but it didn't this time". Pt states she just had a recent EGD and colonoscopy up at , doesn't think they found anything except hemorrhoids. States she had a colonoscopy 2 or 3 years ago and afterward had extensive bleeding "they did something to stop it and then I had no bleeding for 2 years". Pt denies pain in that area, but it is uncomfortable to sit. Allergies and Home Medications Allergies Coded Allergies: NSAIDS (Non-Steroidal Anti-Inflamma (Verified Allergy, Intermediate, 01/07/14) STATES SHE GETS 'CRAZY' Sulfa (Sulfonamide Antibiotics) (Unverified Allergy, Unknown, 01/07/14) ampicillin (Unverified Allergy, Unknown, 01/07/14) prednisone (Unverified Adverse Reaction, Unknown, 03/06/14) Home Medications ALPRAZolam 0.25 Mg Tablet, 0.25 MG PO TID PRN for ANXIETY, (Reported) Last Action: Continued Allopurinol 100 Mg Tablet, 100 MG PO DAILY, (Reported) Last Action: Reviewed Cholecalciferol (Vitamin D3) 25 Mcg Capsule, 25 MCG PO DAILY, (Reported) Last Action: Reviewed Dexlansoprazole 60 Mg , 60 MG PO DAILY, (Reported) Last Action: Reviewed Dicyclomine HCl 20 Mg Tablet, 20 MG PO QID PRN for ABDOMINAL CRAMPING, (Reported) Last Action: Reviewed Doxazosin Mesylate 2 Mg Tablet, 2 MG PO HS, (Reported) Last Action: Reviewed Estrogens Conjugated 1.25 Mg Tab, 1.25 MG PO DAILY, (Reported) Last Action: Reviewed Gabapentin 400 Mg Capsule, 400 MG PO BID, (Reported) Last Action: Reviewed Glucos Sul 2Kcl/MSM/Chond/C/Mn 1 Each Capsule, 1 EACH PO DAILY, (Reported) Last Action: Reviewed Imipramine HCl 50 Mg Tablet, 50 MG PO HS, (Reported) Last Action: Reviewed Levomefolate/B6/B12/Algal Oil 1 Each Capsule, 1 EACH PO BID, (Reported) Last Action: Reviewed Linagliptin 5 Mg Tablet, 5 MG PO DAILY, (Reported) Last Action: Reviewed Losartan Potassium 100 Mg Tablet, 100 MG PO DAILY, (Reported) Last Action: Reviewed Magnesium Oxide 400 Mg Tablet, 400 MG PO DAILY PRN for MUSCLE CRAMPS, (Reported) HOLD FOR LOOSE STOOLS Last Action: Reviewed Patient Home Medication List Home Medication List Reviewed: Yes Past Fdwrylg-Nrcjkb-Vjdlhd Hx Patient Social History Smoking Status: Never a Smoker Alcohol Use?: No Surgeries History of Surgeries: Yes (excision of skin cancer on right hand) Respiratory History of Respiratory Disorde: No Cardiovascular History of Cardiac Disorders: Yes Cardiac Disorders: Hypertension, Peripheral Vascular, Valvular Heart Disease Neurological History of Neurological Disord: Yes Neurological Disorders: Neuropathy Gastrointestinal History of Gastrointestinal Di: Yes Gastrointestinal Disorders: Gastroesophageal Reflux, Gastrointestinal Bleed, Polyps Musculoskeletal History of Musculoskeletal Dis: Yes Musculoskeletal Disorders: Arthritis Endocrine History of Endocrine Disorders: No HEENT History of HEENT Disorders: Yes HEENT Disorders: Cataract Hearing Impairment: Hard of Hearing Cancer History of Cancer: Yes Cancer: Skin Psychosocial History of Psychiatric Problem: Yes Behavioral Health Disorders: Anxiety Integumentary History of Skin or Integumenta: Yes Family Medical History Significant Family History: Cancer, Diabetes, Stroke Family Medial History: Cataract 03 FATHER 03 MOTHER 09 BROTHER 09 BROTHER Dementia 03 MOTHER Family history: Allergy 09 BROTHER Family history: Arthritis 03 MOTHER Family history: Diabetes mellitus 09 BROTHER Family history: Glaucoma 03 MOTHER Family history: Osteoporosis 03 MOTHER Hereditary disease 03 MOTHER Prostate cancer 03 FATHER Stroke 03 MOTHER Review of Systems-General Constitutional: No chills, No dizziness; weakness (had a little weakness this morning when couldn't get blood stopped) EENTM: No blurred vision, No vision loss Respiratory: cough (pt states has a minor cough sometimes); No short of breath Cardiovascular: No chest pain; Hx of Intervention; No palpitations Gastrointestinal: No abdominal pain; constipation (patient feels like she has it all of the time unless she takes magnesium and stool softeners.. she can't take them when she travels); No nausea, No vomiting; other (hematochezia) Genitourinary: No dysuria, No frequency, No hematuria Musculoskeletal: joint pain, joint swelling, muscle pain, muscle stiffness Skin: No change in color; hx of skin cancer Psychiatric/Neurological: Anxiety; Denies Depressed, Denies Seizure; Tremors Physical Exam-General Problems Physical Exam General Appearance: WD/WN, no apparent distress Eyes: Bilateral Eye PERRL, Bilateral Eye EOMI HEENT: pharynx normal; No scleral icterus (R), No scleral icterus (L) Neck: non-tender, supple Respiratory: chest non-tender, lungs clear, normal breath sounds, no respiratory distress, no accessory muscle use Cardiovascular: regular rate, rhythm, no murmur Gastrointestinal: normal bowel sounds, non tender, soft, no organomegaly Rectal: hemorrhoids (Exam performed with female aid in room, external tag, multiple int hemorrhoids; can actually see the tear in one hemorrhoid with blood coming out) Back: no CVA tenderness, no vertebral tenderness Extremities: non-tender, no pedal edema, no calf tenderness 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: alert, oriented x 3 Skin: normal color, warm/dry Lymphatic: no adenopathy (neck, axilla or groin) Assessment/Plan Assessment/Plan Assessment/Plan Rectal Bleed from Internal Hemorrhoid External hemorrhoidal skin tag Plan to check H/H in the am, NPO after midnight. Will start proctofoam HC to be applied BID. I went over options with pt; including just watching area, steroids, and surgery. She was very adamant about not wanting to hu to surgery. I think waiting and watching is a good choice, bleeding may stop on its own and will add some steroid cream to help reduce inflammation. If bleeding doesn't stop we will again discuss surgery; which would basically be cauterizing the hemorrhoids to stop the bleeding. Supervisory-Addendum Brief Verification & Attestation Participated in pt care: history, MDM, physical Personally performed: exam, history, MDM, supervision of care Care discussed with: Medical Student Procedures: n/a Verification and Attestation of Medical Student E/M Service A medical student performed and documented this service. I then reviewed and verified all information documented by the medical student and made modifications to such information, when appropriate. I personally performed a physical exam, medical decision making and then discussed any differences between the notes and made revisions as necessary to create one note. Richelle Thapa , 06/08/21 , 18:04 ELEN BRANCH Jun 08, 2021 15:09 RICHELLE THAPA DO Jun 08, 2021 17:50
[2021-06-08] MEDS ORDERED: CATHETER FLUSH 10 ML SYR IV PRN (15:30)
[2021-06-08] MEDS ORDERED: ALPR0.254 PO (15:56)
[2021-06-08 16:00] VITALS: BP 132/97
[2021-06-08] MEDS: ALPRAZolam 0.25 MG (XANAX) TAB PO PRN (18:02)
[2021-06-08] MEDS ORDERED: inSUlin ASPART (NovoLOG) 1 UNIT/0.01 ML (CHARGE PER UNIT) SC SCH (18:45)
[2021-06-08] MEDS ORDERED: MAGNESIUM OXIDE (MAG-OX)400 MG TAB PO PRN (18:45)
[2021-06-08] MEDS ORDERED: NS IV 1000 ML 1,000 ML ONE (18:54)
[2021-06-08 19:39] VITALS: BP 140/64
[2021-06-08] MEDS: IMIPRAMINE 25 MG (TOFRANIL) TAB PO SCH (20:42)
[2021-06-08] MEDS: HYDROCORTISONE/PRAM (PROCTOFOAM HC) 10 GM CAN PR SCH (20:42)
[2021-06-08] MEDS: doxAzosin 2 MG (CARDURA) TAB PO SCH (20:43)
[2021-06-08] MEDS: GABAPENTIN 400 MG (NEURONTIN) CAP PO SCH (20:43)
[2021-06-08] MEDS: NS IV 1000 ML 1,000 ML IV SCH (20:43)
[2021-06-08] MEDS: inSUlin ASPART (NovoLOG) 1 UNIT/0.01 ML (CHARGE PER UNIT) SC SCH (20:54)
[2021-06-08] MEDS: CATHETER FLUSH 10 ML SYR IV SCH (22:39)
[2021-06-08] MEDS: ACETAMINOPHEN 325 MG TABLET PO PRN (23:53)
[2021-06-09] VITALS (13 sets, daily range): BP systolic 98–142; BP diastolic 40–64
[2021-06-09] MEDS: NS IV 1000 ML 1,000 ML IV SCH ×2 (04:45→06:41)
[2021-06-09 05:44] LABS: BASOPHILS % (AUTO) 0 % (0-10); EOSINOPHILS # (AUTO) 0.1 10^3/uL (0.0-0.3); EOSINOPHILS % (AUTO) 1 % (0-10); HEMATOCRIT 25 % (35-52); HEMOGLOBIN 8.3 g/dL (11.5-16.0); LYMPHOCYTES % (AUTO) 17 % (12-44); MEAN CORPUSCULAR HEMOGLOBIN 30 pg (25-34); MEAN CORPUSCULAR HGB CONC 33 g/dL (32-36); MEAN CORPUSCULAR VOLUME 89 fL (80-99); MEAN PLATELET VOLUME 9.9 fL (9.0-12.2); MONOCYTES # (AUTO) 0.6 10^3/uL (0.0-1.0); MONOCYTES % (AUTO) 10 % (0-12); NEUTROPHILS # (AUTO) 4.3 10^3/uL (1.8-7.8); NEUTROPHILS % (AUTO) 72 % (42-75); PLATELET COUNT 156 10^3/uL (130-400)
[2021-06-09 05:52] LABS: POTASSIUM 4.7 MMOL/L (3.6-5.0)
[2021-06-09 05:53] LABS: CALCIUM 8.1 MG/DL (8.5-10.1)
[2021-06-09 05:57] LABS: CREATININE SERUM 1.25 MG/DL (0.60-1.30)
[2021-06-09] MEDS: inSUlin ASPART (NovoLOG) 1 UNIT/0.01 ML (CHARGE PER UNIT) SC SCH ×4 (06:25→20:59)
[2021-06-09] MEDS: CATHETER FLUSH 10 ML SYR IV SCH ×3 (06:29→21:00)
[2021-06-09 06:54] LABS: EOSINOPHILS % (MANUAL) 1 %; LYMPHOCYTES % (MANUAL) 13 %; METAMYELOCYTES % 1 %; MONOCYTES % (MANUAL) 7 %; NEUTROPHILS % (MANUAL) 78 %
--- NOTE | 2021-06-09 07:59 | Progress Note - Surgery ---
LANDONTAMIKATYRELL 06/09/21 0759: Subjective Date Seen by a Provider: Jun 09, 2021 Time Seen by a Provider: 07:15 Subjective/Events-last exam Pt resting comfortably - continues to bleed from rectum - HbG down to 8.3 Review of Systems General: No Chills, No Night Sweats, No Fatigue HEENT: No Head Aches, No Visual Changes Pulmonary: No Dyspnea Cardiovascular: No: Chest Pain Gastrointestinal: No: Nausea, Vomiting Genitourinary: No Dysuria Musculoskeletal: No: other, neck pain, shoulder pain, arm pain, back pain, hand pain, leg pain, foot pain Neurological: Numbness (Chronic LE); No: Weakness Objective Exam Vital Signs Date Time Temp Pulse Resp B/P (MAP) Pulse Ox O2 Delivery O2 Flow Rate FiO2 06/09/21 04:13 36.3 76 20 131/58 (82) 98 Room Air 06/09/21 01:00 76 06/09/21 00:23 36.0 06/09/21 00:23 36.0 82 20 142/63 (89) 99 Room Air 06/08/21 20:00 Room Air 06/08/21 19:39 36.3 77 20 140/64 (89) 99 Room Air 06/08/21 19:00 80 06/08/21 16:50 Room Air 06/08/21 16:00 36.6 71 20 132/97 (109) 99 Room Air 06/08/21 15:25 85 16 121/90 97 06/08/21 12:35 36.0 80 18 168/57 (94) 97 Room Air I & O 06/09/21 06:59 Intake Total 333 ml Balance 333 ml Capillary Refill : Less Than 3 Seconds General Appearance: No Apparent Distress Respiratory: Lungs Clear, Normal Breath Sounds Cardiovascular: Regular Rate, Rhythm, No JVD, No Murmur Peripheral Pulses: 2+ Carotid (R), 2+ Carotid (L) 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: Alert, Oriented x3 Skin: Normal Color, Warm/Dry Results Lab Laboratory Tests 06/08/21 12:45: White Blood Count 6.8, Red Blood Count 4.06, Hemoglobin 12.0, Hematocrit 36, Mean Corpuscular Volume 88, Mean Corpuscular Hemoglobin 30, Mean Corpuscular Hemoglobin Concent 33, Red Cell Distribution Width 11.9, Platelet Count 191, Mean Platelet Volume 10.0, Immature Granulocyte % (Auto) 0, Neutrophils (%) (Auto) 71, Lymphocytes (%) (Auto) 20, Monocytes (%) (Auto) 7, Eosinophils (%) (Auto) 1, Basophils (%) (Auto) 0, Neutrophils # (Auto) 4.8, Lymphocytes # (Auto) 1.4, Monocytes # (Auto) 0.5, Eosinophils # (Auto) 0.1, Basophils # (Auto) 0.0, Immature Granulocyte # (Auto) 0.0, Prothrombin Time 13.1, INR Comment 1.0, Sodium Level 125*L, Potassium Level 4.6, Chloride Level 91L, Carbon Dioxide Level 22, Anion Gap 12, Blood Urea Nitrogen 18, Creatinine 1.27, Estimat Glomerular Filtration Rate 41, BUN/Creatinine Ratio 14, Glucose Level 130H, Calcium Level 9.8, Corrected Calcium 10.0, Total Bilirubin 0.4, Aspartate Amino Transf (AST/SGOT) 24, Alanine Aminotransferase (ALT/SGPT) 17, Alkaline Phosphatase 62, Total Protein 7.1, Albumin 3.8 06/08/21 20:54: Glucometer 155H 06/09/21 05:34: White Blood Count 6.0, Red Blood Count 2.80L, Hemoglobin 8.3#L, Hematocrit 25L, Mean Corpuscular Volume 89, Mean Corpuscular Hemoglobin 30, Mean Corpuscular Hemoglobin Concent 33, Red Cell Distribution Width 12.0, Platelet Count 156, Mean Platelet Volume 9.9, Immature Granulocyte % (Auto) 1, Neutrophils (%) (Auto) 72, Lymphocytes (%) (Auto) 17, Monocytes (%) (Auto) 10, Eosinophils (%) (Auto) 1, Basophils (%) (Auto) 0, Neutrophils # (Auto) 4.3, Lymphocytes # (Auto) 1.0, Monocytes # (Auto) 0.6, Eosinophils # (Auto) 0.1, Basophils # (Auto) 0.0, Immature Granulocyte # (Auto) 0.0, Sodium Level 124*L, Potassium Level 4.7, Chloride Level 95L, Carbon Dioxide Level 19L, Anion Gap 10, Blood Urea Nitrogen 20H, Creatinine 1.25, Estimat Glomerular Filtration Rate 42, BUN/Creatinine Ratio 16, Glucose Level 130H, Calcium Level 8.1L, Neutrophils % (Manual) 78, Lymphocytes % (Manual) 13, Monocytes % (Manual) 7, Eosinophils % (Manual) 1, Metamyelocytes % 1 Assessment/Plan Assessment/Plan Assessment/Plan Rectal Bleed from Internal Hemorrhoid External hemorrhoidal skin tag Plan to check H/H in the am, NPO after midnight. Will start proctofoam HC to be applied BID. I went over options with pt; including just watching area, steroids, and surgery. She was very adamant about not wanting to hu to surgery. I think waiting and watching is a good choice, bleeding may stop on its own and will add some steroid cream to help reduce inflammation. If bleeding doesn't stop we will again discuss surgery; which would basically be cauterizing the hemorrhoids to stop the bleeding. PT continues to bleed from the rectum Plan - surgical cauterizing of hemorrhoids to stop bleeding RICHELLE MARTINEZ DO 06/09/21 1415: Subjective Time Seen by a Provider: 13:31 Subjective/Events-last exam Pt seen and examined, states she feels a little weaker today. She heard blood dripping into toilet. Review of Systems General: Fatigue Pulmonary: No Dyspnea, No Cough Cardiovascular: No: Chest Pain, Palpitations Gastrointestinal: No: Nausea, Vomiting Objective Exam General Appearance: No Apparent Distress, Obese Respiratory: Lungs Clear, Normal Breath Sounds, No Accessory Muscle Use, No Respiratory Distress Cardiovascular: Regular Rate, Rhythm, No Murmur Gastrointestinal: non tender, soft, no organomegaly, other (bleeding internal hemorrhoids) 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: Alert, Oriented x3 Assessment/Plan Assessment/Plan Assessment/Plan Rectal Bleed from Internal Hemorrhoid External hemorrhoidal skin tag Plan to check H/H in the am, NPO after midnight. Will start proctofoam HC to be applied BID. I went over options with pt; including just watching area, steroids, and surgery. She was very adamant about not wanting to hu to surgery. I think waiting and watching is a good choice, bleeding may stop on its own and will add some steroid cream to help reduce inflammation. If bleeding doesn't stop we will again discuss surgery; which would basically be cauterizing the hemorrhoids to stop the bleeding. PT continues to bleed from the rectum Plan - surgical cauterization or coagulation of hemorrhoids to stop bleeding, possible excision. Supervisory-Addendum Brief Verification & Attestation Participated in pt care: history, MDM, physical Personally performed: exam, history, MDM, supervision of care Care discussed with: Medical Student Procedures: n/a Verification and Attestation of Medical Student E/M Service A medical student performed and documented this service. I then reviewed and verified all information documented by the medical student and made modifications to such information, when appropriate. I personally performed a physical exam, medical decision making and then discussed any differences between the notes and made revisions as necessary to create one note. Richelle Martinez , 06/09/21 , 14:14 TYRELL BOO Jun 09, 2021 07:59 RICHELLE MARTINEZ DO Jun 09, 2021 14:15
[2021-06-09] MEDS ORDERED: SODIUM CHLORIDE 3% 500 ML IV ONE (08:30)
--- NOTE | 2021-06-09 08:35 | History & Physical ---
History of Present Illness History of Present Illness Reason for visit/HPI This is a 75 year old female with a known history of intermittent bleeding external hemorrhoids. She presented to the ER with complaints of bleeding hemorrhoids for at least 3 days. She had tried her usual medications and pressure to try to stop the bleeding with no success. In the emergency room, her H/H were stable and she was noted to have bleeding from internal hemorrhoids. Initially the plan was for DC to home with fwup with surgery for outpatient intervention, however, she then had an episode of rectal bleeding that was large--about a cup of blood in the commode. She will be admitted and started on steroid suppositories with surgical consult and monitoring of H/H. Date of Admission Jun 08, 2021 at 14:41 Date Seen by a Provider: Jun 09, 2021 Time Seen by a Provider: 08:29 I consulted on this patient on 06/09/21 08:29 Attending Physician Ashlee Jean-Baptiste DO Admitting Physician Ashlee Jean-Baptiste DO Consult Allergies and Home Medications Allergies Coded Allergies: NSAIDS (Non-Steroidal Anti-Inflamma (Verified Allergy, Intermediate, 01/07/14) STATES SHE GETS 'CRAZY' Sulfa (Sulfonamide Antibiotics) (Unverified Allergy, Unknown, 01/07/14) ampicillin (Unverified Allergy, Unknown, 01/07/14) prednisone (Unverified Adverse Reaction, Unknown, 03/06/14) Home Medications ALPRAZolam 0.25 Mg Tablet, 0.25 MG PO TID PRN for ANXIETY, (Reported) Last Action: Continued Allopurinol 100 Mg Tablet, 100 MG PO DAILY, (Reported) Last Action: Reviewed Cholecalciferol (Vitamin D3) 25 Mcg Capsule, 25 MCG PO DAILY, (Reported) Last Action: Reviewed Dexlansoprazole 60 Mg , 60 MG PO DAILY, (Reported) Last Action: Converted Dicyclomine HCl 20 Mg Tablet, 20 MG PO QID PRN for ABDOMINAL CRAMPING, (Reported) Last Action: Reviewed Doxazosin Mesylate 2 Mg Tablet, 2 MG PO HS, (Reported) Last Action: Continued Estrogens Conjugated 1.25 Mg Tab, 1.25 MG PO DAILY, (Reported) Last Action: Reviewed Gabapentin 400 Mg Capsule, 400 MG PO BID, (Reported) Last Action: Continued Glucos Sul 2Kcl/MSM/Chond/C/Mn 1 Each Capsule, 1 EACH PO DAILY, (Reported) Last Action: Reviewed Imipramine HCl 50 Mg Tablet, 50 MG PO HS, (Reported) Last Action: Converted Levomefolate/B6/B12/Algal Oil 1 Each Capsule, 1 EACH PO BID, (Reported) Last Action: Reviewed Linagliptin 5 Mg Tablet, 5 MG PO DAILY, (Reported) Last Action: Continued Losartan Potassium 100 Mg Tablet, 100 MG PO DAILY, (Reported) Last Action: Continued Magnesium Oxide 400 Mg Tablet, 400 MG PO DAILY PRN for MUSCLE CRAMPS, (Reported) HOLD FOR LOOSE STOOLS Last Action: Continued Patient Home Medication List Home Medication List Reviewed: Yes Past Jpatlxv-Oehwcx-Mvzidh Hx Patient Social History Tobacco Use?: No Smoking Status: Never a Smoker Use of E-Cig and/or Vaping dev: No Substance use?: No Alcohol Use?: No Pt feels they are or have been: No Immunizations Up To Date Date of Influenza Vaccine: Aug 06, 2019 First/Initial COVID19 Vaccinat: DEC Second COVID19 Vaccination Akira: MAR Tetanus Booster (TDap): Unknown Hepatitis A: No Hepatitis B: No Seasonal Allergies Seasonal Allergies: No Current Status status: No status: No Advance Directives: Yes Advance Directive Location: Home Communicates: Verbally Primary Language: Ecuadorean Preferred Spoken Language: Ecuadorean Is interpretation needed?: No Implanted or Applied Medical D: None Past Medical History Surgeries: Appendectomy, Gallbladder, Hysterectomy, Nephrectomy Hypertension, Peripheral Vascular, Valvular Heart Disease Neuropathy 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, Menopausal Gastroesophageal Reflux, Gastrointestinal Bleed, Polyps Arthritis Diabetes, Non-Insulin dep Cataract Hearing Impairment: Hard of Hearing Skin Anxiety Blood Disorders: No Adverse Reaction/Blood Tranf: No Family Medical History Cataract 03 FATHER 03 MOTHER 09 BROTHER 09 BROTHER Dementia 03 MOTHER Family history: Allergy 09 BROTHER Family history: Arthritis 03 MOTHER Family history: Diabetes mellitus 09 BROTHER Family history: Glaucoma 03 MOTHER Family history: Osteoporosis 03 MOTHER Hereditary disease 03 MOTHER Prostate cancer 03 FATHER Stroke 03 MOTHER No Family History of: Abdominal aortic aneurysm [place]'s disease Alcoholism Aphasia Cancer Cancer of colon Chest pain Congenital heart disease Congestive heart failure Cystic fibrosis Dysphagia Family history: Alzheimer's disease Family history: Asthma Family history: Breast disease Family history: Cardiovascular disease Family history: Coronary thrombosis Family history: Gastrointestinal disease Family history: Hypertension Family history: Thyroid disorder Headache Hearing loss Heart disease History of - anemia History of - disorder History of - respiratory disease History of drug abuse Human immunodeficiency virus (HIV) seropositivity Hypercholesterolemia Infertile Kidney disease Malignant neoplasm of lung Myocardial infarction Parkinson's disease Psychotic disorder Seizure disorder Tuberculosis Visual impairment Cancer, Diabetes, Stroke Review of Systems Constitutional: weakness EENTM: No see HPI, No no symptoms reported, No ear discharge, No hearing loss, No ear pain, No blurred vision, No double vision, No eye pain, No tearing, No vision loss, No dental problems, No hoarseness, No mouth pain, No mouth swelling, No epistaxis, No nose congestion, No nose pain, No throat pain, No throat swelling, No other Respiratory: No no symptoms reported, No see HPI, No cough, No dyspnea on exertion, No hemoptysis, No orthopnea, No phlegm, No short of breath, No stridor, No wheezing, No other Cardiovascular: No no symptoms reported, No see HPI, No chest pain, No edema, No Hx of Intervention, No palpitations, No syncope, No vascular heart diseas, No other Gastrointestinal: loss of appetite, other (bright red blood per rectum) Genitourinary: No no symptoms reported, No see HPI, No decreased output, No discharge, No dysuria, No frequency, No hematuria, No hesitancy, No incontinence, No nocturia, No pain, No other Musculoskeletal: muscle weakness Skin: No no symptoms reported, No see HPI, No change in color, No change in hair/nails, No dryness, No hx of skin cancer, No lesions, No lumps, No pruritus, No rash, No other Psychiatric/Neurological: Paresthesia, Pre-Existing Deficit, Tremors, Weakness Physical Exam Vital Signs Vital Signs - First Documented 06/08/21 12:35 Temp 36.0 Pulse 80 Resp 18 B/P (MAP) 168/57 (94) Pulse Ox 97 O2 Delivery Room Air Capillary Refill : Less Than 3 Seconds Height, Weight, BMI Height: 5'0.00" Weight: 158lbs. 0.0oz. [id number]; 33.79 BMI Method:Stated General Appearance: No Apparent Distress Neck: Supple Respiratory: Lungs Clear Cardiovascular: Regular Rate, Rhythm Gastrointestinal: Normal Bowel Sounds, Soft, Tenderness (mild generalized) Rectal: Deferred Extremity: Non Tender, No Calf Tenderness, No Pedal Edema 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: Alert, Oriented x3 Skin: Warm/Dry Comments Laboratory Tests 06/08/21 12:45: White Blood Count 6.8, Red Blood Count 4.06, Hemoglobin 12.0, Hematocrit 36, Mean Corpuscular Volume 88, Mean Corpuscular Hemoglobin 30, Mean Corpuscular Hemoglobin Concent 33, Red Cell Distribution Width 11.9, Platelet Count 191, Mean Platelet Volume 10.0, Immature Granulocyte % (Auto) 0, Neutrophils (%) (Auto) 71, Lymphocytes (%) (Auto) 20, Monocytes (%) (Auto) 7, Eosinophils (%) (Auto) 1, Basophils (%) (Auto) 0, Neutrophils # (Auto) 4.8, Lymphocytes # (Auto) 1.4, Monocytes # (Auto) 0.5, Eosinophils # (Auto) 0.1, Basophils # (Auto) 0.0, Immature Granulocyte # (Auto) 0.0, Prothrombin Time 13.1, INR Comment 1.0, Sodium Level 125*L, Potassium Level 4.6, Chloride Level 91L, Carbon Dioxide Level 22, Anion Gap 12, Blood Urea Nitrogen 18, Creatinine 1.27, Estimat Glomerular Filtration Rate 41, BUN/Creatinine Ratio 14, Glucose Level 130H, Calcium Level 9.8, Corrected Calcium 10.0, Total Bilirubin 0.4, Aspartate Amino Transf (AST/SGOT) 24, Alanine Aminotransferase (ALT/SGPT) 17, Alkaline Phosphatase 62, Total Protein 7.1, Albumin 3.8 06/08/21 20:54: Glucometer 155H 06/09/21 05:34: White Blood Count 6.0, Red Blood Count 2.80L, Hemoglobin 8.3#L, Hematocrit 25L, Mean Corpuscular Volume 89, Mean Corpuscular Hemoglobin 30, Mean Corpuscular Hemoglobin Concent 33, Red Cell Distribution Width 12.0, Platelet Count 156, Mean Platelet Volume 9.9, Immature Granulocyte % (Auto) 1, Neutrophils (%) (Auto) 72, Lymphocytes (%) (Auto) 17, Monocytes (%) (Auto) 10, Eosinophils (%) (Auto) 1, Basophils (%) (Auto) 0, Neutrophils # (Auto) 4.3, Lymphocytes # (Auto) 1.0, Monocytes # (Auto) 0.6, Eosinophils # (Auto) 0.1, Basophils # (Auto) 0.0, Immature Granulocyte # (Auto) 0.0, Sodium Level 124*L, Potassium Level 4.7, Chloride Level 95L, Carbon Dioxide Level 19L, Anion Gap 10, Blood Urea Nitrogen 20H, Creatinine 1.25, Estimat Glomerular Filtration Rate 42, BUN/Creatinine Ratio 16, Glucose Level 130H, Calcium Level 8.1L, Neutrophils % (Manual) 78, Lymphocytes % (Manual) 13, Monocytes % (Manual) 7, Eosinophils % (Manual) 1, Metamyelocytes % 1 Assessment/Plan Assessment and Plan 1. Acute Lower GI Hemorrhage from Internal Hemorrhoids--on anusol HC suppositories with surgical consult--still bleeding so will likely need i ntervention 2. Acute Blood Loss Anemia--H/H has dropped to 8.3 and 25--will monitor 3. Hyponatremia--give a bag of hypertonic saline and repeat Na tomorrow 4. GERD--back on protonix 5. Chronic Renal Insufficiency--hydrating and BUN/Cr stable 6. Diabetes mellitus--on accuchecks with SSI Admission Diagnosis Admission Status: Observation ASHLEE JEAN-BAPTISTE DO Jun 09, 2021 08:35
[2021-06-09] MEDS: HYDROCORTISONE/PRAM (PROCTOFOAM HC) 10 GM CAN PR SCH ×3 (13:32→20:59)
[2021-06-09] MEDS: PANTOPRAZOLE 40 MG (PROTONIX) TAB PO SCH (13:32)
[2021-06-09] MEDS: LOSARTAN 100 MG (COZAAR) TABLET PO SCH (13:32)
[2021-06-09] MEDS: GABAPENTIN 400 MG (NEURONTIN) CAP PO SCH ×2 (13:32→20:46)
[2021-06-09] MEDS ORDERED: proPOfol 200 MG/20 ML (DIPRIVAN) VIAL IV ONE (14:07)
[2021-06-09] MEDS ORDERED: LIDOCAINE PF 2% 5 ML (XYLOCAINE) VIAL ONE (14:07)
[2021-06-09] MEDS ORDERED: ONDANSETRON 4 MG/2 ML (SDV) Z0FRAN ONE (14:07)
[2021-06-09] MEDS ORDERED: fentaNYL INJ 100 MCG/2 ML AMP ONE (14:07)
[2021-06-09] MEDS ORDERED: LACTATED RINGERS 1,000 ML IV PRN (14:30)
--- NOTE | 2021-06-09 14:47 | Progress Note-Post Operative ---
Post-Operative Progess Note Surgeon (s)/Public Health Training Assistant (s) Surgeon RICHELLE THAPA DO Public Health Training Assistant: none Pre-Operative Diagnosis rectal bleed Post-Operative Diagnosis Anemia secondary to blood loss from Internal hemorrhoid Ext hemorrhoid Procedure & Operative Findings Date of Procedure 06/09/21 Procedure Performed/Findings 1) Destruction of int hemorrhoids - 3 columns 2) Exc of ext hemorrhoid Anesthesia Type LMA Estimated Blood Loss Estimated blood loss (mL): appx 10ml Specimens/Packing Specimens Removed ext hemorrhoid RICHELLE THAPA DO Jun 09, 2021 14:47
--- NOTE | 2021-06-09 14:56 | Anesthesia-General Post-Op ---
General Patient Condition Mental Status/LOC: Same as Preop Cardiovascular: Satisfactory Nausea/Vomiting: Absent Respiratory: Satisfactory Pain: Controlled Complications: Absent Post Op Complications Complications None Follow Up Care/Instructions Patient Instructions None needed. Anesthesia/Patient Condition Patient Condition Patient is doing well, no complaints, stable vital signs, no apparent adverse anesthesia problems. No complications reported per nursing. STEPHANIE KAMINSKI CRNA Jun 09, 2021 14:56
[2021-06-09] MEDS ORDERED: ONDANSETRON 4 MG/2 ML (SDV) Z0FRAN IVP PRN (15:00)
[2021-06-09] MEDS ORDERED: MEPERIDINE (DEMEROL) INJ 50 MG/ML IVP ONE (15:00)
[2021-06-09] MEDS ORDERED: morphine INJ 10 MG/ML 1ML (SYR OR VIAL) IVP ONE (15:00)
[2021-06-09] MEDS ORDERED: morphine INJ 10 MG/ML 1ML (SYR OR VIAL) ONE (15:12)
[2021-06-09] MEDS ORDERED: SEVOFLURANE (ULTANE) 15 ML INHAL SOLN ONE (15:23)
[2021-06-09] MEDS: IMIPRAMINE 25 MG (TOFRANIL) TAB PO SCH (20:44)
[2021-06-09] MEDS: doxAzosin 2 MG (CARDURA) TAB PO SCH (20:45)
--- NOTE | 2021-06-09 22:12 | OPERATIVE REPORT ---
DATE OF SERVICE: PREOPERATIVE DIAGNOSIS: Rectal bleed. POSTOPERATIVE DIAGNOSES: External hemorrhoid and internal hemorrhoids with bleeding. PROCEDURES: 1. Destruction of internal hemorrhoidal columns, three of them. 2. Excision of external hemorrhoid. SURGEON: Casper Martinez DO SAMPLE PULLER: None. ANESTHESIA: LMA. BLOOD LOSS: Less than 10 mL. FLUIDS: Per anesthesia. POSTOPERATIVE CONDITION: Stable. INDICATION FOR PROCEDURE: The patient is a 75-year-old female who has been having some rectal bleeding enough that actually caused anemia from the internal hemorrhoid. FINDINGS: The patient had a large external hemorrhoid and she had some internal hemorrhoids, actually could see one bleeding and was actually pulling out a small stream of blood while we were prepping and getting the patient ready. PROCEDURE NOTE: After informed consent was obtained, the patient was brought to the operating room, placed on the table in lithotomy position. She was sterilely prepped and draped in normal fashion. Local lidocaine was used to perform ischial tuberosity blocks as well as block around the anus. There was an external hemorrhoid sticking out, then we elected to remove this with a LigaSure, clamping, coagulating and then transecting to remove this LigaSure and the bleeding from the internal hemorrhoids, elected to destroy the hemorrhoidal columns with a LigaSure, clamping, coagulating but not cutting these off, doing this at the right, the left lateral, right anterior and right posterior to stop the bleeding. There was no bleeding from the hemorrhoids or from the rectum at the end of the case. Area was cleaned and dried and placed a Gelfoam into the rectum to help control bleeding and then covered this with dressing. The patient tolerated the procedure. Sponge, instrument and needle count correct at the end of the case. Job ID: [id number] DocumentID: [id number] Dictated Date: 06/09/2021 14:45:35 Ash Kier Boiler Date: 06/09/2021 22:11:21 Dictated By: CASPER MARTINEZ DO
[2021-06-10] VITALS (8 sets, daily range): BP systolic 101–143; BP diastolic 51–73
[2021-06-10] MEDS: NS IV 1000 ML 1,000 ML IV SCH (00:57)
[2021-06-10 05:33] LABS: HEMATOCRIT 25 % (35-52); HEMOGLOBIN 8.2 g/dL (11.5-16.0); MEAN CORPUSCULAR HEMOGLOBIN 30 pg (25-34); MEAN CORPUSCULAR HGB CONC 33 g/dL (32-36); MEAN CORPUSCULAR VOLUME 92 fL (80-99); MEAN PLATELET VOLUME 9.7 fL (9.0-12.2); PLATELET COUNT 188 10^3/uL (130-400); WHITE BLOOD COUNT 9.1 10^3/uL (4.3-11.0)
[2021-06-10 05:49] LABS: CREATININE SERUM 1.64 MG/DL (0.60-1.30)
[2021-06-10] MEDS: CATHETER FLUSH 10 ML SYR IV SCH ×3 (05:49→20:36)
[2021-06-10] MEDS: inSUlin ASPART (NovoLOG) 1 UNIT/0.01 ML (CHARGE PER UNIT) SC SCH ×4 (06:10→21:00)
[2021-06-10] MEDS ORDERED: LACTATED RINGERS 1,000 ML IV ONE (07:34)
[2021-06-10] MEDS: LACTATED RINGERS 1,000 ML IV SCH ×3 (07:37→20:45)
--- NOTE | 2021-06-10 07:45 | Progress Note - Surgery ---
TYRELL BOO 06/10/21 0745: Subjective Date Seen by a Provider: Jun 10, 2021 Time Seen by a Provider: 07:10 Subjective/Events-last exam Pt recovering from int hemroid cauterization Pt reports no BM and hestant to do so 2/2 pain Pt looking forward to returning home Low urine output noted by nursing staff Review of Systems General: No Chills, No Night Sweats, No Fatigue, No Malaise HEENT: No Head Aches, No Visual Changes Pulmonary: No Dyspnea, No Cough Cardiovascular: No: Chest Pain, Palpitations Gastrointestinal: Abdominal Pain; No: Nausea, Vomiting Genitourinary: Other (peeing less than expected) Musculoskeletal: No: other, neck pain, shoulder pain, arm pain, back pain, hand pain, leg pain, foot pain Neurological: No: Weakness, Change in speech, Confusion Mild abdominal discomfort Focused Exam Respiratory: Lungs Clear, Normal Breath Sounds, No Accessory Muscle Use, No Respiratory Distress Cardiovascular: Regular Rate, Rhythm, No JVD, No Murmur, Normal Peripheral Pulses Peripheral Pulses: 2+ Radial Pulses (R), 2+ Radial Pulses (L) Skin: normal color, warm/dry Objective Exam Vital Signs Date Time Temp Pulse Resp B/P (MAP) Pulse Ox O2 Delivery O2 Flow Rate FiO2 06/10/21 07:37 36.0 88 18 125/51 (75) 98 Room Air 06/10/21 04:15 36.6 84 16 143/60 (87) 96 Room Air 06/10/21 01:00 80 06/10/21 00:12 36.5 79 16 127/57 (80) 99 Room Air 06/09/21 20:45 Room Air 06/09/21 20:25 36.5 80 16 107/51 (69) 97 Room Air 06/09/21 19:00 80 06/09/21 16:10 36.4 94 16 98/45 (62) 98 Room Air 06/09/21 16:00 Room Air 06/09/21 15:50 37.2 14 120/40 (66) 95 Room Air 06/09/21 15:45 Room Air 06/09/21 15:40 14 104/43 (63) 100 Room Air 06/09/21 15:30 OxyMask 2 06/09/21 15:30 14 107/43 (64) 100 Room Air 06/09/21 15:20 14 112/42 (65) 100 OxyMask 2 06/09/21 15:15 OxyMask 2 06/09/21 15:10 18 121/56 (77) 100 OxyMask 2 06/09/21 15:00 15 122/41 (68) 100 OxyMask 2 06/09/21 14:50 OxyMask 4 06/09/21 14:50 36.8 16 141/63 (89) 100 OxyMask 4 06/09/21 12:00 36.5 73 20 130/60 (83) 98 Room Air 06/09/21 08:05 Room Air 06/09/21 08:00 36.2 78 20 140/64 (89) 98 Room Air I & O 06/10/21 07:00 Intake Total 1240 ml Output Total 125 ml Balance 1115 ml Capillary Refill : Less Than 3 Seconds General Appearance: No Apparent Distress, Obese HEENT: No Moist Mucous Membranes (dry and pale) Neck: Supple Respiratory: Lungs Clear, Normal Breath Sounds, No Accessory Muscle Use, No Respiratory Distress Cardiovascular: Regular Rate, Rhythm, No Murmur Peripheral Pulses: 2+ Carotid (R), 2+ Carotid (L) Gastrointestinal: non tender, soft, no organomegaly, other (bleeding internal hemorrhoids) Extremity: Non Tender, No Calf Tenderness, No Pedal Edema 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: Alert, Oriented x3 Skin: Warm/Dry Results Lab Laboratory Tests 06/09/21 10:54: Glucometer 118H 06/09/21 13:40: SARS-CoV-2 RNA (RT-PCR) Not Detected 06/09/21 16:19: Glucometer 150H 06/09/21 20:35: Glucometer 152H 06/10/21 05:17: White Blood Count 9.1, Red Blood Count 2.71L, Hemoglobin 8.2L, Hematocrit 25L, Mean Corpuscular Volume 92, Mean Corpuscular Hemoglobin 30, Mean Corpuscular Hemoglobin Concent 33, Red Cell Distribution Width 12.5, Platelet Count 188, Mean Platelet Volume 9.7, Sodium Level 132L, Potassium Level 5.0, Chloride Level 103, Carbon Dioxide Level 21, Anion Gap 8, Blood Urea Nitrogen 22H, Creatinine 1.64H, Estimat Glomerular Filtration Rate 30, BUN/Creatinine Ratio 13, Glucose Level 102, Calcium Level 8.0L Assessment/Plan Assessment/Plan Assessment/Plan bleeding from internal hemroids - status post op Hyponatremia post op recovery dehydrated Plan - increased fluid intake, montior for bleeding from surgical site, nutritional intake. CASPER MARTINEZ DO 06/10/21 0952: Subjective Time Seen by a Provider: 09:31 Subjective/Events-last exam Pt seen and examined, states she is a little goofy this am (but also that this is mostly normal). She is starting to drink more and did urinate some more as well. No BM and no bleeding. Review of Systems General: No Chills, No Night Sweats; Fatigue Pulmonary: No Dyspnea, No Cough Cardiovascular: No: Chest Pain, Palpitations Gastrointestinal: No: Nausea, Vomiting Objective Exam General Appearance: No Apparent Distress, Obese HEENT: No Moist Mucous Membranes (dry mouth) Respiratory: Lungs Clear, Normal Breath Sounds, No Accessory Muscle Use, No Respiratory Distress Cardiovascular: Regular Rate, Rhythm, No Murmur Gastrointestinal: non tender, soft, no organomegaly Assessment/Plan Assessment/Plan Assessment/Plan Anemia -secondary to bleeding from internal hemroids - Cautery destruction of 3 columns yesterday Hyponatremia - switch to LR at 150ml/hr Dehydration Acute Renal Failure - probably secondary to dehydration Plan - encourage fluid intake; but not water, Powerade would be better. Increased IV fluid, montior for bleeding from surgical site, nutritional intake. Supervisory-Addendum Brief Verification & Attestation Participated in pt care: history, MDM, physical Personally performed: exam, history, MDM, supervision of care Care discussed with: Medical Student Procedures: n/a Verification and Attestation of Medical Student E/M Service A medical student performed and documented this service. I then reviewed and verified all information documented by the medical student and made modifications to such information, when appropriate. I personally performed a physical exam, medical decision making and then discussed any differences between the notes and made revisions as necessary to create one note. Casper Martinez , 06/10/21 , 10:08 TYRELL BOO Jun 10, 2021 07:45 CASPER MARTINEZ DO Jun 10, 2021 09:52
[2021-06-10] MEDS: PANTOPRAZOLE 40 MG (PROTONIX) TAB PO SCH (07:55)
[2021-06-10] MEDS: GABAPENTIN 400 MG (NEURONTIN) CAP PO SCH ×2 (07:56→20:36)
[2021-06-10] MEDS: LOSARTAN 100 MG (COZAAR) TABLET PO SCH (07:56)
[2021-06-10] MEDS: ALPRAZolam 0.25 MG (XANAX) TAB PO PRN ×2 (08:01→23:21)
--- NOTE | 2021-06-10 08:30 | Progress Note ---
Subjective Date Seen by a Provider: Jun 10, 2021 Time Seen by a Provider: 08:25 Subjective/Events-last exam Fwup lower GI Hemorrhage due to acute blood loss from bleeding internal hemorrhoids, Acute blood loss anemia, hyponatremia, chronic renal insufficiency, DMII, GERD. Sitting up on commode. Has had no bleeding since procedure yesterday. Objective Exam Vital Signs Date Time Temp Pulse Resp B/P (MAP) Pulse Ox O2 Delivery O2 Flow Rate FiO2 06/10/21 07:37 36.0 88 18 125/51 (75) 98 Room Air 06/10/21 04:15 36.6 84 16 143/60 (87) 96 Room Air 06/10/21 01:00 80 06/10/21 00:12 36.5 79 16 127/57 (80) 99 Room Air 06/09/21 20:45 Room Air 06/09/21 20:25 36.5 80 16 107/51 (69) 97 Room Air 06/09/21 19:00 80 06/09/21 16:10 36.4 94 16 98/45 (62) 98 Room Air 06/09/21 16:00 Room Air 06/09/21 15:50 37.2 14 120/40 (66) 95 Room Air 06/09/21 15:45 Room Air 06/09/21 15:40 14 104/43 (63) 100 Room Air 06/09/21 15:30 OxyMask 2 06/09/21 15:30 14 107/43 (64) 100 Room Air 06/09/21 15:20 14 112/42 (65) 100 OxyMask 2 06/09/21 15:15 OxyMask 2 06/09/21 15:10 18 121/56 (77) 100 OxyMask 2 06/09/21 15:00 15 122/41 (68) 100 OxyMask 2 06/09/21 14:50 OxyMask 4 06/09/21 14:50 36.8 16 141/63 (89) 100 OxyMask 4 06/09/21 12:00 36.5 73 20 130/60 (83) 98 Room Air I & O 06/10/21 07:00 Intake Total 1240 ml Output Total 125 ml Balance 1115 ml Capillary Refill : Less Than 3 Seconds General Appearance: No Apparent Distress Respiratory: Lungs Clear Cardiovascular: Regular Rate, Rhythm 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: Alert, Oriented x3 Results Lab Laboratory Tests 06/09/21 10:54: Glucometer 118H 06/09/21 13:40: SARS-CoV-2 RNA (RT-PCR) Not Detected 06/09/21 16:19: Glucometer 150H 06/09/21 20:35: Glucometer 152H 06/10/21 05:17: White Blood Count 9.1, Red Blood Count 2.71L, Hemoglobin 8.2L, Hematocrit 25L, Mean Corpuscular Volume 92, Mean Corpuscular Hemoglobin 30, Mean Corpuscular Hemoglobin Concent 33, Red Cell Distribution Width 12.5, Platelet Count 188, Mean Platelet Volume 9.7, Sodium Level 132L, Potassium Level 5.0, Chloride Level 103, Carbon Dioxide Level 21, Anion Gap 8, Blood Urea Nitrogen 22H, Creatinine 1.64H, Estimat Glomerular Filtration Rate 30, BUN/Creatinine Ratio 13, Glucose Level 102, Calcium Level 8.0L Assessment/Plan Assessment/Plan Assess & Plan/Chief Complaint 1. Acute Lower GI Hemorrhage due to bleeding internal hemorrhoids--S/P destruction of internal hemorrhoidal columns x3 and removal of external hemorrhoids 2. Acute Blood Loss Anemia due to #1--H/H stable from yesterday at 8.2 3. Hyponatremia--improved post hypertonic saline 4. Acute on Chronic Renal Insufficiency--continue IVFs and monitor BUN/Cr 5. DMII--on accuchecks with SSI 6. GERD--back on protonix DC plans per surgery Clinical Quality Measures Admission Status Admission Dx 1. Acute Lower [facility]--still bleeding so will likely need intervention 2. Acute Blood Loss Anemia--H/H has dropped to 8.3 and 25--will monitor 3. Hyponatremia--give a bag of hypertonic saline and repeat Na tomorrow 4. GERD--back on protonix 5. Chronic Renal Insufficiency--hydrating and BUN/Cr stable 6. Diabetes mellitus--on accuchecks with SSI ARACELI WELCH DO Jun 10, 2021 08:29
[2021-06-10] MEDS: HYDROCORTISONE/PRAM (PROCTOFOAM HC) 10 GM CAN PR SCH ×2 (09:08→20:35)
[2021-06-10] MEDS: doxAzosin 2 MG (CARDURA) TAB PO SCH (20:35)
[2021-06-10] MEDS: IMIPRAMINE 25 MG (TOFRANIL) TAB PO SCH (20:35)
[2021-06-11 03:24] VITALS: BP 143/75
[2021-06-11] MEDS: LACTATED RINGERS 1,000 ML IV SCH ×2 (03:30→10:10)
[2021-06-11] MEDS: CATHETER FLUSH 10 ML SYR IV SCH ×3 (05:04→22:54)
[2021-06-11] MEDS: inSUlin ASPART (NovoLOG) 1 UNIT/0.01 ML (CHARGE PER UNIT) SC SCH ×4 (05:04→21:10)
[2021-06-11] MEDS: GABAPENTIN 400 MG (NEURONTIN) CAP PO SCH ×2 (07:56→21:10)
[2021-06-11] MEDS: PANTOPRAZOLE 40 MG (PROTONIX) TAB PO SCH (07:57)
[2021-06-11] MEDS: LOSARTAN 100 MG (COZAAR) TABLET PO SCH (07:57)
[2021-06-11] MEDS: HYDROCORTISONE/PRAM (PROCTOFOAM HC) 10 GM CAN PR SCH ×2 (07:58→21:10)
[2021-06-11 08:00] VITALS: BP 131/81
--- NOTE | 2021-06-11 08:47 | Progress Note - Hospitalist ---
SUAD SHINE MED STUDENT 06/11/21 0847: Subjective HPI/CC On Admission Date Seen by Provider: Jun 11, 2021 Time Seen by Provider: 08:15 Pt is up in chair this morning. Has not had BM yet, but confirms bleeding per rectum. Bleeding has improved since yesterday. Pt is tolerating food and has no abdominal pain. Pain in rectum is 7/10. Objective Exam Vital Signs Vital Signs Date Time Temp Pulse Resp B/P (MAP) Pulse Ox O2 Delivery O2 Flow Rate FiO2 06/11/21 08:00 37.0 90 20 131/81 (98) 96 Room Air 06/10/21 16:28 2.00 Capillary Refill : Less Than 3 Seconds General Appearance: No Apparent Distress, Obese Respiratory: Lungs Clear, Normal Breath Sounds, No Accessory Muscle Use Cardiovascular: Regular Rate, Rhythm, No Murmur Gastrointestinal: Normal Bowel Sounds, Non Tender, Soft Extremity: Pedal Edema 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: Alert Skin: Pallor Results/Procedures Lab Patient resulted labs reviewed. Assessment/Plan Assessment and Plan Assess & Plan/Chief Complaint Acute blood loss anemia d/t internal and external hemorrhoids Status post hemorrhoidectomy POD 2 Chronic Constipation Diabetes HTN Obesity Peripheral Neuropathy Gait instability Hyponatremic Acute on Chronic Kidney Disease Acute blood loss anemia d/t internal and external hemorrhoids -Hbg stabilized at 8.2. Status post hemorrhoidectomy POD 2 -Continue use of SCDs and ambulation for DVT prophylaxis, as pt is not candidate for Lovanox d/t acute bleed. -Will continue to monitor pt as she has not had BM. Chronic Constipation -Start Miralax. -Give one dose of Relistor. Diabetes -Continue to home insulin regimen. Encouraged higher protein diet. HTN -Will continue to monitor Obesity -Encouraged dietary changes Peripheral Neuropathy -Will continue to manage diabetes Gait instability -Encouraged pt to use walker at hospital and upon d/c to home. -Discussed use of anti-slip socks at home to help stabilize pt when using walker as her feet sometimes slip d/t neuropathy. Hyponatremic -Improving, Will continue to monitor. 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 PT IS STATUS POST GI BLEED FROM HEMORRHOIDS WITH HEMORRHOIDECTOMY. THE PT REPORTS THAT SHE IS FEELING BETTER, HAS RECTAL DISCOMFORT, PASSING SOME GAS BUT HAS NOT PASSED STOOL. SHE CONTINUES TO HAVE SOME BLOOD PER RECTUM. SHE DOES NOT HAVE A GREAT APPETITE PER STAFF REPORT. PTS REPORTS SHE PREFERS FAST FOOD. PTS URINE OUTPUT HAS IMPROVED OVERNIGHT PER STAFF REPORT. Review of Systems General: No Chills, No Night Sweats, No Fatigue, No Malaise Pulmonary: No Dyspnea, No Cough, No Pleuritic Chest Pain, No Other Cardiovascular: Edema; No: Chest Pain, Palpitations, Orthopnea, Lt Headedness Gastrointestinal: Constipation, Hematochezia Neurological: Weakness, Numbness Objective Exam General Appearance: No Apparent Distress, WD/WN, Obese, Other HEENT: PERRL/EOMI, Pharynx Normal Neck: Full Range of Motion, Non Tender, Supple Respiratory: Chest Non Tender, Lungs Clear, Normal Breath Sounds, No Accessory Muscle Use, No Respiratory Distress Cardiovascular: Regular Rate, Rhythm, No JVD, No Murmur Gastrointestinal: Normal Bowel Sounds, No Organomegaly, No Pulsatile Mass, Non Tender, Soft Rectal: Deferred Extremity: Normal Capillary Refill, No Calf Tenderness 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: Alert, Oriented x3, No Motor/Sensory Deficits, Normal Mood/Affect, automatic presser II-XII Norm as Tested Skin: Normal Color, Warm/Dry Lymphatic: No Adenopathy Assessment/Plan Assessment and Plan Assess & Plan/Chief Complaint ACUTE ANEMIA SECONDARY TO RECTAL BLEED POST OP HEMORRHOIDECTOMY ACUTE ON CHRONIC RENAL FAILURE CONSTIPATION DIABETES MELLITUS HYPERTENSION PERIPHERAL NEUROPATHY WEAKNESS HYPONATREMIA TREAT CONSTIPATION WITH RELISTOR AND MIRALAX, monitor output REPEAT LABS IN MORNING AGREE WITH MED STUDENT NOTE DOCUMENTED. Supervisory-Addendum Brief Verification & Attestation Participated in pt care: history, MDM, physical Personally performed: exam, history, MDM, supervision of care Care discussed with: Medical Student Procedures: n/a Results interpretation: Verified all documentation I AGREE WITH STUDENT NOTE DOCUMENTED. I PERSONALLY REVIEWED THE PT CHART, INTERVIEWED THE PATIENT AND HER SPOUSE, EXAMINED THE PATIENT, DISCUSSED THE PLAN OF CARE WITH THE PT, HER , NURSING STAFF AND DR THAPA. PLAN WILL HOPEFULLY BE FOR DISCHARGE OF THE PATIENT TO HOME TOMORROW, PENDING LAB REPORT AND GI SYMPTOMS. SUAD SHINE STUDENT Jun 11, 2021 08:47 DAVID PEREZ MD Jun 11, 2021 22:22
--- NOTE | 2021-06-11 09:35 | Progress Note - Surgery ---
LANDONTAMIKATYRELL 06/11/21 0935: Subjective Date Seen by a Provider: Jun 11, 2021 Time Seen by a Provider: 07:46 Subjective/Events-last exam Pt alert and sitting in chair next to bed, nursing reports small blood clot in camode without active bleeding, but no BM yet. Urine output has improved and pt reports returning clarity to speech and cognition. Pt is anxious about having BM. Review of Systems General: No Chills; Fatigue, Appetite HEENT: Head Aches; No Visual Changes, No Eye Pain, No Sinus Congestion Pulmonary: No Dyspnea, No Cough Cardiovascular: No: Chest Pain, Palpitations Gastrointestinal: No: Nausea, Vomiting, Abdominal Pain, Diarrhea Genitourinary: No Dysuria, No Frequency, No Incontinence Musculoskeletal: No: neck pain, arm pain, hand pain Neurological: Weakness, Numbness Objective Exam Vital Signs Date Time Temp Pulse Resp B/P (MAP) Pulse Ox O2 Delivery O2 Flow Rate FiO2 06/11/21 08:00 37.0 90 20 131/81 (98) 96 Room Air 06/11/21 08:00 97 Room Air 06/11/21 07:00 85 06/11/21 03:24 36.9 89 20 143/75 (97) 97 Room Air 06/11/21 01:00 86 06/10/21 23:06 36.2 84 18 119/69 (86) 98 Room Air 06/10/21 20:36 Room Air 06/10/21 19:30 37.0 91 14 127/71 (89) 96 Room Air 06/10/21 19:00 84 06/10/21 16:28 98 Nasal Cannula 2.00 06/10/21 15:45 35.8 86 14 101/65 (77) 98 Room Air 06/10/21 12:51 81 06/10/21 11:25 36.1 80 16 112/70 (84) 97 Room Air I & O 06/11/21 06:59 Intake Total 4100 ml Output Total 1220 ml Balance 2880 ml Capillary Refill : Less Than 3 Seconds General Appearance: No Apparent Distress HEENT: PERRL/EOMI, Pharynx Normal, Moist Mucous Membranes Neck: Non Tender, Supple; No Lymphadenopathy (L), No Lymphadenopathy (R) Respiratory: Lungs Clear, Normal Breath Sounds, No Accessory Muscle Use Cardiovascular: Regular Rate, Rhythm, No Murmur, Normal Peripheral Pulses Peripheral Pulses: 2+ Radial Pulses (R), 2+ Radial Pulses (L) Gastrointestinal: non tender, soft, no organomegaly Extremity: Pedal Edema 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: Alert, Oriented x3, night cleaner II-XII Norm as Tested Skin: Normal Color, Warm/Dry, Pallor Results Lab Laboratory Tests 06/10/21 11:24: Glucometer 153H 06/10/21 16:00: Glucometer 116H 06/10/21 21:10: Glucometer 123H 06/11/21 05:02: Glucometer 118H Microbiology 06/09/21 MRSA Screen - Final, Complete MRSA not isolated Assessment/Plan Assessment/Plan Assessment/Plan Anemia -secondary to bleeding from internal hemroids Hyponatremia - appears resolved Dehydration - resolved Acute Renal Failure - probably secondary to dehydration Plan - monitor for bleeding from surgical site, maintain nutritional and fluid intake, stool softener. RICHELLE MARTINEZ DO 06/11/21 1558: Subjective Time Seen by a Provider: 15:40 Subjective/Events-last exam Pt seen and examined, she is tolerating diet and is mainly mad because she doesn't get to go home today. Review of Systems General: No Chills; Fatigue Cardiovascular: No: Chest Pain, Palpitations Gastrointestinal: No: Nausea, Vomiting, Abdominal Pain Genitourinary: No Dysuria, No Frequency Neurological: Confusion (very mild) Objective Exam General Appearance: No Apparent Distress HEENT: Moist Mucous Membranes Respiratory: Lungs Clear, Normal Breath Sounds, No Accessory Muscle Use Cardiovascular: Regular Rate, Rhythm, No Murmur Gastrointestinal: non tender, soft Skin: Pallor Assessment/Plan Assessment/Plan Assessment/Plan Anemia -secondary to bleeding from internal hemroids Hyponatremia - appears resolved Dehydration - resolved Acute Renal Failure - probably secondary to dehydration Plan - monitor for bleeding from surgical site, maintain nutritional and fluid intake, stool softener. Will check labs tomorrow and probably ok to go home if no big changes. Supervisory-Addendum Brief Verification & Attestation Participated in pt care: history, MDM, physical Personally performed: exam, history, MDM, supervision of care Care discussed with: Medical Student Procedures: n/a Verification and Attestation of Medical Student E/M Service A medical student performed and documented this service. I then reviewed and verified all information documented by the medical student and made modification s to such information, when appropriate. I personally performed a physical exam, medical decision making and then discussed any differences between the notes and made revisions as necessary to create one note. Richelle Martinez , 06/11/21 , 15:58 TYRELL BOO Jun 11, 2021 09:35 RICHELLE MARTINEZ DO Jun 11, 2021 15:58
[2021-06-11 11:59] VITALS: BP 127/74
[2021-06-11] MEDS: ACETAMINOPHEN 325 MG TABLET PO PRN (13:01)
[2021-06-11] MEDS ORDERED: METHYLNALTREXONE 12 MG/0.6 ML (RELISTOR) VIAL SQ ONE (15:00)
[2021-06-11] MEDS ORDERED: polyethylene glycoL POWDER 17 GM (MIRALAX) PACK PO ONE ×2 (15:00→21:00)
[2021-06-11] MEDS ORDERED: polyethylene glycoL POWDER 17 GM (MIRALAX) PACK ONE (15:43)
[2021-06-11] MEDS ORDERED: NS IV 1000 ML 1,000 ML ONE (15:43)
[2021-06-11] MEDS: NS IV 1000 ML 1,000 ML IV SCH (15:47)
[2021-06-11 16:09] VITALS: BP 105/66
[2021-06-11 20:24] VITALS: BP 140/75
[2021-06-11] MEDS: doxAzosin 2 MG (CARDURA) TAB PO SCH (21:10)
[2021-06-11] MEDS: IMIPRAMINE 25 MG (TOFRANIL) TAB PO SCH (21:10)
[2021-06-11] MEDS: DOCUSATE SODIUM 100 MG (COLACE) CAP PO SCH (21:10)
[2021-06-11] MEDS: ALPRAZolam 0.25 MG (XANAX) TAB PO PRN (21:11)
[2021-06-11 23:11] VITALS: BP 141/71
[2021-06-12] VITALS (9 sets, daily range): BP systolic 129–192; BP diastolic 62–79
[2021-06-12] MEDS: NS IV 1000 ML 1,000 ML IV SCH ×2 (05:40→21:13)
[2021-06-12 06:17] LABS: BASOPHILS % (AUTO) 0 % (0-10); EOSINOPHILS # (AUTO) 0.2 10^3/uL (0.0-0.3); EOSINOPHILS % (AUTO) 2 % (0-10); LYMPHOCYTES # (AUTO) 1.2 10^3/uL (1.0-4.0); LYMPHOCYTES % (AUTO) 18 % (12-44); MEAN CORPUSCULAR HGB CONC 33 g/dL (32-36); MEAN CORPUSCULAR VOLUME 91 fL (80-99); MEAN PLATELET VOLUME 9.7 fL (9.0-12.2); MONOCYTES # (AUTO) 0.5 10^3/uL (0.0-1.0); MONOCYTES % (AUTO) 7 % (0-12); NEUTROPHILS # (AUTO) 4.8 10^3/uL (1.8-7.8); NEUTROPHILS % (AUTO) 71 % (42-75); PLATELET COUNT 181 10^3/uL (130-400); WHITE BLOOD COUNT 6.8 10^3/uL (4.3-11.0)
[2021-06-12 06:20] LABS: HEMATOCRIT 20 % (35-52); HEMOGLOBIN 6.7 g/dL (11.5-16.0); MEAN CORPUSCULAR HEMOGLOBIN 30 pg (25-34)
[2021-06-12 06:26] LABS: ALBUMIN 2.8 GM/DL (3.2-4.5); POTASSIUM 4.5 MMOL/L (3.6-5.0)
[2021-06-12 06:27] LABS: CALCIUM 7.5 MG/DL (8.5-10.1)
[2021-06-12 06:28] LABS: TOTAL PROTEIN 4.8 GM/DL (6.4-8.2)
[2021-06-12 06:30] LABS: BILIRUBIN,TOTAL 0.2 MG/DL (0.1-1.0)
[2021-06-12 06:32] LABS: CREATININE SERUM 1.13 MG/DL (0.60-1.30)
[2021-06-12] MEDS ORDERED: NS IV 500 ML 500 ML IV SCH (06:45)
[2021-06-12] MEDS: inSUlin ASPART (NovoLOG) 1 UNIT/0.01 ML (CHARGE PER UNIT) SC SCH ×4 (06:50→21:14)
[2021-06-12] MEDS: CATHETER FLUSH 10 ML SYR IV SCH ×3 (06:50→21:14)
--- NOTE | 2021-06-12 08:30 | Progress Note - Hospitalist ---
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 PT IS STATUS POST GI BLEED FROM HEMORRHOIDS WITH HEMORRHOIDECTOMY. THE PT REPORTS THAT SHE IS FEELING BETTER, HAS RECTAL DISCOMFORT, PASSING SOME GAS BUT HAS NOT PASSED STOOL. SHE CONTINUES TO HAVE SOME BLOOD PER RECTUM, BUT THIS IS IMPROVING. Review of Systems Pulmonary: Cough (Non productive) Gastrointestinal: Constipation, Hematochezia Neurological: Numbness (lower extremity numbness d/t neuropathy) Objective Exam Vital Signs Vital Signs Date Time Temp Pulse Resp B/P (MAP) Pulse Ox O2 Delivery O2 Flow Rate FiO2 06/12/21 07:15 36.5 85 16 141/62 (88) 98 Room Air 06/10/21 16:28 2.00 Capillary Refill : Less Than 3 Seconds General Appearance: No Apparent Distress, Obese Respiratory: No Accessory Muscle Use, No Respiratory Distress, Crackles Cardiovascular: Regular Rate, Rhythm Gastrointestinal: Normal Bowel Sounds, Non Tender, Soft Extremity: Pedal Edema 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: Alert, Oriented x3 Results/Procedures Lab Laboratory Tests 06/12/21 06:05 Patient resulted labs reviewed. Assessment/Plan Assessment and Plan Assess & Plan/Chief Complaint Acute blood loss anemia d/t internal and external hemorrhoids Status post hemorrhoidectomy POD 2 Chronic Constipation Diabetes HTN Obesity Peripheral Neuropathy Gait instability Hyponatremic Acute on Chronic Kidney Disease Acute blood loss anemia d/t internal and external hemorrhoids -H/H dropped to 6.7 and 20. -Blood transfusion will be done today. Status post hemorrhoidectomy POD 2 -Continue use of SCDs and ambulation for DVT prophylaxis, as pt is not candidate for Lovanox d/t acute bleed. -Will continue to monitor pt as she has not had BM. Chronic Constipation -Continue Miralax. Diabetes -Continue to home insulin regimen. Encouraged higher protein diet. HTN -Will continue to monitor Obesity -Encouraged dietary changes Peripheral Neuropathy -Will continue to manage diabetes. Gait instability -Encouraged pt to use walker at hospital and upon d/c to home. -Discussed use of anti-slip socks at home to help stabilize pt when using walker as her feet sometimes slip d/t neuropathy. Hyponatremic -Improving, Will continue to monitor. Acute on Chronic Kidney Disease -Improving, will continue to monitor Hypocalcemia -Will continue to monitor Hypoalbuminemia/Edema -Encouraged high protein diet. -Start Lasix today. DAVID PEREZ MD 06/12/21 1500: Subjective Subjective/Events-last exam PT REFUSED BLOOD TRANSFUSION THIS MORNING UNTIL DISCUSSED WITH THIS PROVIDER. SHE STATES THAT SHE DOES NOT HAVE ANY ABDOMINAL PAIN, HAS NOT PASSED ANY STOOL. SHE REPORTS THAT THIS MORNING WHEN URINATING SHE FELT THE URGE, BUT "NOTHING CAME OUT". Review of Systems General: Fatigue; No Malaise HEENT: No Head Aches, No Visual Changes Pulmonary: No Dyspnea Cardiovascular: Edema (ANKLES AND HANDS); No: Chest Pain, Palpitations Gastrointestinal: Constipation, Hematochezia Genitourinary: Frequency Neurological: Weakness, Numbness (lower extremity numbness d/t neuropathy); No: Confusion Objective Exam General Appearance: No Apparent Distress, WD/WN, Obese HEENT: PERRL/EOMI Neck: Non Tender, Supple Respiratory: Chest Non Tender, No Accessory Muscle Use, No Respiratory Distress, Crackles (IN BASES) Cardiovascular: Regular Rate, Rhythm Gastrointestinal: Normal Bowel Sounds, No Organomegaly, Non Tender, Soft Rectal: Deferred Extremity: Normal Capillary Refill, Non Tender, No Calf Tenderness, Pedal Edema 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: Alert, Oriented x3, Normal Mood/Affect Skin: Normal Color, Warm/Dry Lymphatic: No Adenopathy Results/Procedures Imaging: Reviewed Imaging Films Assessment/Plan Assessment and Plan Assess & Plan/Chief Complaint ACUTE ANEMIA SECONDARY TO RECTAL BLEED - WORSENING ANEMIA - HGB DROPPED FROM 8.2 TO 6.7 TODAY - BLOOD TRANSFUSION ORDERED, WILL REPEAT H AND H A FEW HOURS POST TRANSFUSION TO SEE IF ANOTHER UNIT IS NEEDED. - IRON PANEL ORDERED WELL POST OP HEMORRHOIDECTOMY - DEFER TO DR. THAPA - PT TO HAVE PROCTOFOAM TO HELP DECREASE RECTAL EDEMA AND HOPEFULLY HELP PROPAGATE BOWEL MOVEMENT. ACUTE ON CHRONIC RENAL FAILURE - MONITOR LABS, RENALLY ADJUST MEDICATIONS CONSTIPATION - MIRALAX AND COLACE AND MONITOR OUTPUT DIABETES MELLITUS - SUPPORTIVE CARE, MONITOR FSBS HYPERTENSION - MONITOR BP PERIPHERAL NEUROPATHY - HOME REGIMEN RESUMED WEAKNESS - WILL NEED THERAPY, CONTINUE WITH NURSING STAFF AMBULATING PT TID HYPONATREMIA - MONITOR LABS, IV FLUIDS EDEMA - IV LASIX - LOW DOSE TODAY AND WILL REPEAT IF NEEDED, IV FLUIDS DECREASED YESTERDAY Supervisory-Addendum Brief Verification & Attestation Participated in pt care: history, MDM, physical Personally performed: exam, history, MDM, supervision of care Care discussed with: Medical Student Procedures: n/a Results interpretation: Verified all documentation I HAVE PERSONALLY INTERVIEWED PT, EXAMINED PT, REVIEWED DATA OF LAB AND DISCUSSED CASE WITH PT AND HER WELL WITH CONSULTING SURGEON. SEE MY DOCUMENTATION IN ASSESSMENT AND PLAN. I AGREE WITH STUDENT DOCUMENTATION. SUAD SHINE MED STUDENT Jun 12, 2021 08:30 DAVID PEREZ MD Jun 12, 2021 15:00
--- NOTE | 2021-06-12 08:50 | Progress Note - Surgery ---
TYRELL BOO 06/12/21 0850: Subjective Date Seen by a Provider: Jun 12, 2021 Time Seen by a Provider: 06:36 Subjective/Events-last exam PT recovering from anemia and cauterization of bleeding internal hemroids Small amounts of bright red blood continue to be present according to nursing. No BM to date. PT is eating and drinking sodium rich fluids. Review of Systems General: No Chills, No Night Sweats; Fatigue HEENT: No Head Aches, No Visual Changes, No Eye Pain Pulmonary: No Dyspnea, No Cough Cardiovascular: No: Chest Pain, Palpitations Gastrointestinal: No: Nausea, Vomiting, Abdominal Pain, Diarrhea, Constipation Genitourinary: No Dysuria, No Frequency Musculoskeletal: No: other, neck pain, shoulder pain, arm pain, back pain, hand pain, leg pain, foot pain Neurological: Weakness, Numbness Objective Exam Vital Signs Date Time Temp Pulse Resp B/P (MAP) Pulse Ox O2 Delivery O2 Flow Rate FiO2 06/12/21 07:15 36.5 85 16 141/62 (88) 98 Room Air 06/12/21 03:10 36.8 87 18 129/72 (91) 97 Room Air 06/11/21 23:11 36.4 90 18 141/71 (94) 98 Room Air 06/11/21 20:24 36.7 89 20 140/75 (96) 99 Room Air 06/11/21 20:15 Room Air 06/11/21 16:09 36.6 80 16 105/66 (79) 98 Room Air 06/11/21 11:59 36.5 85 20 127/74 (91) 100 Room Air I & O 06/12/21 07:00 Intake Total 1090 ml Output Total 1900 ml Balance -810 ml Capillary Refill : Less Than 3 Seconds General Appearance: No Apparent Distress, Obese HEENT: PERRL/EOMI, Pharynx Normal, Moist Mucous Membranes Neck: Full Range of Motion, Non Tender, Supple Respiratory: Lungs Clear, Normal Breath Sounds, No Accessory Muscle Use Cardiovascular: Regular Rate, Rhythm, No Gallop, No Murmur, Normal Peripheral Pulses Peripheral Pulses: 2+ Radial Pulses (R), 2+ Radial Pulses (L) Gastrointestinal: non tender, soft Extremity: Pedal Edema 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: Alert, Oriented x3, No Motor/Sensory Deficits, Normal Mood/Affect, living manager II-XII Norm as Tested Skin: Normal Color, Warm/Dry Lymphatic: No Adenopathy Results Lab Laboratory Tests 06/11/21 11:21: Glucometer 150H 06/11/21 15:39: Glucometer 144H 06/11/21 20:13: Glucometer 148H 06/12/21 06:05: White Blood Count 6.8, Red Blood Count 2.20L, Hemoglobin 6.7*L, Hematocrit 20*L, Mean Corpuscular Volume 91, Mean Corpuscular Hemoglobin 30, Mean Corpuscular Hemoglobin Concent 33, Red Cell Distribution Width 12.6, Platelet Count 181, Mean Platelet Volume 9.7, Immature Granulocyte % (Auto) 1, Neutrophils (%) (Auto) 71, Lymphocytes (%) (Auto) 18, Monocytes (%) (Auto) 7, Eosinophils (%) (Auto) 2, Basophils (%) (Auto) 0, Neutrophils # (Auto) 4.8, Lymphocytes # (Auto) 1.2, Monocytes # (Auto) 0.5, Eosinophils # (Auto) 0.2, Basophils # (Auto) 0.0, Immature Granulocyte # (Auto) 0.1, Sodium Level 133L, Potassium Level 4.5, Chloride Level 104, Carbon Dioxide Level 20L, Anion Gap 9, Blood Urea Nitrogen 13, Creatinine 1.13, Estimat Glomerular Filtration Rate 47, BUN/Creatinine Ratio 12, Glucose Level 125H, Calcium Level 7.5L, Corrected Calcium 8.5, Total Bilirubin 0.2, Aspartate Amino Transf (AST/SGOT) 23, Alanine Aminotransferase (ALT/SGPT) 19, Alkaline Phosphatase 51, Total Protein 4.8L, Albumin 2.8L Microbiology 06/09/21 MRSA Screen - Final, Complete MRSA not isolated Assessment/Plan Assessment/Plan Assessment/Plan Anemia -secondary to bleeding from internal hemroids Hyponatremia - appears resolved Dehydration - resolved Acute Renal Failure - probably secondary to dehydration Plan - give blood, monitor for bleeding from surgical site, maintain nutritional and fluid intake, stool softener. CASPER MARTINEZ DO 06/12/21 1207: Subjective Time Seen by a Provider: 11:28 Subjective/Events-last exam Pt seen and examined, actually sitting on bedside commode; still no BM. Scant blood on [place] in bed. She is eating and drinking without difficulty. Denies weakness, but states she can't walk much because her feet are numb. Review of Systems General: Fatigue HEENT: No Head Aches Pulmonary: No Dyspnea, No Cough Cardiovascular: No: Chest Pain, Palpitations Gastrointestinal: Constipation; No: Nausea, Vomiting, Abdominal Pain Objective Exam General Appearance: No Apparent Distress, Obese HEENT: PERRL/EOMI, Moist Mucous Membranes Respiratory: Lungs Clear, Normal Breath Sounds, No Accessory Muscle Use Cardiovascular: Regular Rate, Rhythm, No Murmur Gastrointestinal: non tender, soft, other (scant blood from rectum) Extremity: Pedal Edema 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: Alert, Oriented x3 Assessment/Plan Assessment/Plan Assessment/Plan Anemia -secondary to bleeding from internal hemorrhoids Hyponatremia - mild, continue IV fluids Dehydration - resolved Acute Renal Failure - probably secondary to dehydration Pt's hemoglobin dropped to 6.7 this am; plan - give blood, monitor for bleeding from surgical site, maintain nutritional and fluid intake, stool softener. Will also give pt proctofoam HC to help calm down the area. I don't think she bled that much more, more likely the 6.7 was from the initial blood loss and now increased IV fluids. Will keep one more day. Supervisory-Addendum Brief Verification & Attestation Participated in pt care: history, MDM, physical Personally performed: exam, history, MDM, supervision of care Care discussed with: Medical Student Procedures: n/a Verification and Attestation of Medical Student E/M Service A medical student performed and documented this service. I then reviewed and verified all information documented by the medical student and made modifications to such information, when appropriate. I personally performed a physical exam, medical decision making and then discussed any differences between the notes and made revisions as necessary to create one note. Casper Martinez , 06/12/21 , 12:07 TYRELL BOO Jun 12, 2021 08:50 CASPER MARTINEZ DO Jun 12, 2021 12:07
[2021-06-12] MEDS: GABAPENTIN 400 MG (NEURONTIN) CAP PO SCH ×2 (08:57→21:13)
[2021-06-12] MEDS: LOSARTAN 100 MG (COZAAR) TABLET PO SCH (08:57)
[2021-06-12] MEDS: PANTOPRAZOLE 40 MG (PROTONIX) TAB PO SCH (08:57)
[2021-06-12] MEDS: DOCUSATE SODIUM 100 MG (COLACE) CAP PO SCH ×2 (08:57→21:13)
[2021-06-12] MEDS ORDERED: FUROSEMIDE 40 MG/4 ML INJ (LASIX) IVP ONE ×2 (11:30→22:15)
[2021-06-12] MEDS: HYDROCORTISONE/PRAM (PROCTOFOAM HC) 10 GM CAN PR SCH ×2 (12:57→21:14)
[2021-06-12] MEDS: IMIPRAMINE 25 MG (TOFRANIL) TAB PO SCH (21:13)
[2021-06-12] MEDS: ALPRAZolam 0.25 MG (XANAX) TAB PO PRN (21:13)
[2021-06-12] MEDS: doxAzosin 2 MG (CARDURA) TAB PO SCH (21:13)
[2021-06-12 21:22] LABS: HEMOGLOBIN 8.4 g/dL (11.5-16.0)
[2021-06-13] VITALS (7 sets, daily range): BP systolic 138–194; BP diastolic 63–84
[2021-06-13] MEDS ORDERED: cloNIDine 0.1 MG (CATAPRES) TAB PO ONE (04:45)
[2021-06-13] MEDS: NS IV 1000 ML 1,000 ML IV SCH (05:24)
[2021-06-13] MEDS: CATHETER FLUSH 10 ML SYR IV SCH ×3 (05:24→21:03)
[2021-06-13 05:53] LABS: HEMOGLOBIN 8.8 g/dL (11.5-16.0)
[2021-06-13 06:09] LABS: POTASSIUM 4.1 MMOL/L (3.6-5.0)
[2021-06-13 06:10] LABS: CALCIUM 8.2 MG/DL (8.5-10.1)
[2021-06-13 06:14] LABS: CREATININE SERUM 1.99 MG/DL (0.60-1.30)
[2021-06-13 06:17] LABS: MAGNESIUM 1.4 MG/DL (1.6-2.4)
[2021-06-13] MEDS: inSUlin ASPART (NovoLOG) 1 UNIT/0.01 ML (CHARGE PER UNIT) SC SCH ×4 (06:49→21:03)
[2021-06-13] MEDS: DOCUSATE SODIUM 100 MG (COLACE) CAP PO SCH ×2 (08:18→21:02)
[2021-06-13] MEDS: PANTOPRAZOLE 40 MG (PROTONIX) TAB PO SCH (08:19)
[2021-06-13] MEDS: HYDROCORTISONE/PRAM (PROCTOFOAM HC) 10 GM CAN PR SCH ×2 (08:19→21:03)
[2021-06-13] MEDS: LOSARTAN 100 MG (COZAAR) TABLET PO SCH (08:19)
[2021-06-13] MEDS: GABAPENTIN 400 MG (NEURONTIN) CAP PO SCH ×2 (08:19→21:02)
--- NOTE | 2021-06-13 08:37 | Progress Note - Surgery ---
EMATYRELL 06/13/21 0837: Subjective Date Seen by a Provider: Jun 13, 2021 Time Seen by a Provider: 08:16 Subjective/Events-last exam PT recovering from anemia and cauterization of bleeding internal hemroids Small amounts of bright red blood continue to be present according to nursing. Two BM to last night without blood. Hb has improved from 6.8 to 8.8 today with one unit of blood given. Also hyponatremia has resolved. Review of Systems General: No Chills, No Night Sweats; Fatigue, Appetite HEENT: No Head Aches, No Visual Changes, No Eye Pain, No Ear Pain, No Sinus Congestion Pulmonary: No Dyspnea, No Cough, No Pleuritic Chest Pain Cardiovascular: Edema; No: Chest Pain, Palpitations Gastrointestinal: No: Nausea, Vomiting, Abdominal Pain, Diarrhea, Constipation, Melena, Hematochezia Genitourinary: No Dysuria; Frequency, Incontinence; No Hematuria, No Retention Musculoskeletal: leg pain; No: neck pain, shoulder pain, arm pain Neurological: Weakness, Numbness; No: Incoordination, Change in speech, Confusion Objective Exam Vital Signs Date Time Temp Pulse Resp B/P (MAP) Pulse Ox O2 Delivery O2 Flow Rate FiO2 06/13/21 07:33 36.5 92 20 194/73 (113) 94 Room Air 06/13/21 04:32 36.4 78 18 185/66 (105) 95 Room Air 06/13/21 00:00 36.9 98 20 172/84 (113) 98 Room Air 06/12/21 21:03 36.9 89 18 192/78 (116) 100 Room Air 06/12/21 20:15 Room Air 06/12/21 20:00 36.9 92 18 177/74 (108) 99 Room Air 06/12/21 16:49 36.8 85 20 160/68 (98) 100 Room Air 06/12/21 15:00 37.0 92 20 187/79 06/12/21 12:16 36.2 85 20 149/65 99 Room Air 06/12/21 12:01 36.7 87 20 144/67 98 Room Air 06/12/21 11:50 36.5 87 18 144/67 (92) 98 Room Air I & O 06/13/21 07:00 Intake Total 740 ml Output Total 3100 ml Balance -2360 ml Capillary Refill : Less Than 3 Seconds General Appearance: No Apparent Distress, WD/WN, Obese HEENT: PERRL/EOMI, Pharynx Normal, Moist Mucous Membranes Neck: Full Range of Motion, Non Tender, Supple Respiratory: Chest Non Tender, No Accessory Muscle Use, No Respiratory Distress, Crackles (B/L bases), Wheezing Cardiovascular: Regular Rate, Rhythm, No Gallop, No Murmur, Normal Peripheral Pulses Peripheral Pulses: 2+ Radial Pulses (R), 2+ Radial Pulses (L) Gastrointestinal: normal bowel sounds, non tender, soft, no organomegaly, other (scant blood from rectum per nursing) Extremity: Normal Capillary Refill, Normal Range of Motion, Non Tender, Calf Tenderness, Pedal Edema (2+) 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: Alert, Oriented x3, Normal 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, 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 Norm as Tested Skin: Normal Color, Warm/Dry Lymphatic: No Adenopathy Results Lab Laboratory Tests 06/12/21 12:01: Glucometer 115H 06/12/21 16:30: Glucometer 120H 06/12/21 18:15: 06/12/21 20:16: Glucometer 107 06/12/21 21:15: Hemoglobin 8.4#L, Hematocrit 25L 06/13/21 05:25: Hemoglobin 8.8L, Hematocrit 25L, Sodium Level 136, Potassium Level 4.1, Chloride Level 104, Carbon Dioxide Level 21, Anion Gap 11, Blood Urea Nitrogen 9, Creatinine 1.99H, Estimat Glomerular Filtration Rate 24, BUN/Creatinine Ratio 5, Glucose Level 103, Calcium Level 8.2L, Magnesium Level 1.4L Microbiology 06/09/21 MRSA Screen - Final, Complete MRSA not isolated Assessment/Plan Assessment/Plan Assessment/Plan Anemia -secondary to bleeding from internal hemorrhoids - improved Hyponatremia - resolved Dehydration - resolved Acute Renal Failure Pt's hemoglobin dropped to 6.7 yesterday,1 unit given, today Hgb 8.8. Monitor for bleeding from surgical site, trace bleeding continues, maintain nutritional and fluid intake, stool softener. CASEPR MARTINEZ DO 06/13/21 1218: Subjective Time Seen by a Provider: 10:54 Subjective/Events-last exam Pt seen and examined, finally had a BM. Still has scant bleeding. She denies trouble breathing but was told she has "wheezing". Review of Systems General: No Chills; Fatigue Pulmonary: No Dyspnea, No Cough Cardiovascular: No: Chest Pain, Palpitations Gastrointestinal: Hematochezia; No: Nausea, Vomiting, Abdominal Pain Objective Exam General Appearance: No Apparent Distress, Obese HEENT: Moist Mucous Membranes Respiratory: Chest Non Tender, No Accessory Muscle Use, No Respiratory Distress, Crackles (B/L bases), Wheezing Cardiovascular: Regular Rate, Rhythm, No Murmur Gastrointestinal: non tender, soft, no organomegaly Assessment/Plan Assessment/Plan Assessment/Plan B/L pleural effusions - per Radiology, will start IS and RT breathing treatments as needed Anemia -secondary to bleeding from internal hemorrhoids - improved Hyponatremia - resolved Dehydration - resolved Acute Renal Failure Pt's hemoglobin dropped to 6.7 yesterday,1 unit given, today Hgb 8.8. Monitor for bleeding from surgical site, trace bleeding continues, maintain nutritional and fluid intake, stool softener. Supervisory-Addendum Brief Verification & Attestation Participated in pt care: history, MDM, physical Personally performed: exam, history, MDM, supervision of care Care discussed with: Medical Student Procedures: n/a Verification and Attestation of Medical Student E/M Service A medical student performed and documented this service. I then reviewed and verified all information documented by the medical student and made modifications to such information, when appropriate. I personally performed a physical exam, medical decision making and then discussed any differences between the notes and made revisions as necessary to create one note. Casper Martinez , 06/13/21 , 12:18 TYRELL BOO Jun 13, 2021 08:37 CASPER MARTINEZ DO Jun 13, 2021 12:18
--- NOTE | 2021-06-13 08:37 | Progress Note - Hospitalist ---
SUAD SHINE A MED STUDENT 06/13/21 0837: Subjective HPI/CC On Admission Date Seen by Provider: Jun 13, 2021 Time Seen by Provider: 08:00 PT IS A CLINIC PT OF DR WELCH FOR WHOM I AM BONE GR[employer]. PT IS STATUS POST GI BLEED FROM HEMORRHOIDS WITH HEMORRHOIDECTOMY. THE PT REPORTS THAT SHE IS FEELING BETTER, HAS RECTAL DISCOMFORT. PT HAD THREE SMALL BOWEL MOVEMENTS YESTERDAY THAT WERE SOFT, BUT SOLID. PT CONFIRMS PAIN WITH FIRST BM, BUT NOT SUBSEQUENT BM. SHE CONTINUES TO HAVE SOME BLOOD PER RECTUM, BUT THIS IS IMPROVING. PT IS ABLE TO AMBULATE WITH WALKER AND MINIMAL ASSISTANCE AND USE THE RESTROOM ON HER OWN. PT STATES SHE TAKES ALPRAZOLAM 2 TO 3 TIMES DAILY AT HOME. SHE CURRENTLY HAS A HEADACHE. Review of Systems HEENT: Head Aches Pulmonary: Cough (NONPRODUCTIVE) Cardiovascular: No: Chest Pain, Palpitations, Lt Headedness Gastrointestinal: Hematochezia; No: Abdominal Pain, Diarrhea, Constipation Genitourinary: No Dysuria; Frequency Musculoskeletal: leg pain (NEUROPATHY) Neurological: Numbness (NEUROPATHY IN BILATERAL LE ) Objective Exam Vital Signs Vital Signs Date Time Temp Pulse Resp B/P (MAP) Pulse Ox O2 Delivery O2 Flow Rate FiO2 06/13/21 07:33 36.5 92 20 194/73 (113) 94 Room Air 06/10/21 16:28 2.00 Capillary Refill : Less Than 3 Seconds General Appearance: No Apparent Distress, Obese Respiratory: No Accessory Muscle Use, No Respiratory Distress, Crackles Cardiovascular: Regular Rate, Rhythm Gastrointestinal: Normal Bowel Sounds, Soft, Tenderness Rectal: Other (ASSISTED PT WITH WIPING AFTER URINATION AND VISUALIZED A STREAK OF BLOOD ON TOILET PAPER) Extremity: Pedal Edema 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: Alert, Oriented x3 Skin: Normal Color Results/Procedures Lab Laboratory Tests 06/12/21 21:15 06/13/21 05:25 Patient resulted labs reviewed. Imaging: Reviewed Imaging Films Assessment/Plan Assessment and Plan Assess & Plan/Chief Complaint ACUTE ANEMIA SECONDARY TO RECTAL BLEED POST OP HEMORRHOIDECTOMY ACUTE ON CHRONIC RENAL FAILURE DIABETES MELLITUS HYPERTENSION PERIPHERAL NEUROPATHY WEAKNESS HYPONATREMIA EDEMA HYPOCALCEMIA HYPOMAGNESEMIA HEADACHE ACUTE ANEMIA SECONDARY TO RECTAL BLEED -IMPROVED, H/H AT 8.8 AND 25, WILL CONTINUE TO MONITOR POST OP HEMORRHOIDECTOMY - PT HAD THREE BOWEL MOVEMENTS THAT WERE SOFT, BUT SOLID ACUTE ON CHRONIC RENAL FAILURE -MONITOR LABS, RENALLY ADJUST MEDICATIONS. -STOP FLUIDS AND LASIX DIABETES MELLITUS - SUPPORTIVE CARE, MONITOR FSBS HYPERTENSION - START HYDRALAZINE, CONTINUE TO MONITOR PERIPHERAL NEUROPATHY - HOME REGIMEN RESUMED WEAKNESS - WILL NEED THERAPY, CONTINUE WITH NURSING STAFF AMBULATING PT TID HYPONATREMIA - RESOLVED EDEMA - IMPROVED, WILL CONTINUE TO MONITOR HYPOCALCEMIA -WILL CONTINUE TO MONITOR HYPOMAGNESEMIA -START MAG SULFATE, WILL CONTINUE TO MONITOR HEADACHE -START TYLENOL -SCHEDULED ALPRAZOLAM BID DAVID PEREZ MD 06/13/21 1226: Subjective Subjective/Events-last exam PT REPORTS THAT SHE IS FEELING BETTER, AND HAD SEVERAL BOWEL MOVEMENTS OVER THE PAST 12-18 HOURS. SHE REPORTS THAT SHE IS TIRED OF BEING IN THE HOSPITAL AND WOULD LIKE TO BE DISCHARGED TO HOME. Review of Systems General: No Fatigue, No Malaise HEENT: No Head Aches Pulmonary: No Dyspnea, No Cough (NONPRODUCTIVE) Cardiovascular: No: Chest Pain, Palpitations Gastrointestinal: Constipation (IMPROVED) Genitourinary: Frequency Neurological: Numbness (NEUROPATHY IN BILATERAL LE ) Objective Exam General Appearance: No Apparent Distress, WD/WN, Obese HEENT: PERRL/EOMI Neck: Full Range of Motion, Supple Respiratory: Chest Non Tender, No Accessory Muscle Use, No Respiratory Distress, Crackles (IN BASES) Cardiovascular: Regular Rate, Rhythm Gastrointestinal: Normal Bowel Sounds, Non Tender, Soft Rectal: Deferred Extremity: Normal Capillary Refill, Non Tender, No Calf Tenderness, Pedal Edema 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: Alert, Oriented x3, No Motor/Sensory Deficits, Normal M ood/Affect Skin: Normal Color, Warm/Dry Lymphatic: No Adenopathy Results/Procedures Imaging: Reviewed Imaging Films Assessment/Plan Assessment and Plan Assess & Plan/Chief Complaint ACUTE ANEMIA SECONDARY TO RECTAL BLEED - STABLE HGB POST BLOOD TRANSFUSION, MONITOR LABS TOMORROW - WAITING ON RESULTS FROM IRON PANEL POST OP HEMORRHOIDECTOMY - DEFER TO DR. THAPA - PT TO HAVE PROCTOFOAM TO HELP DECREASE RECTAL EDEMA AND HOPEFULLY HELP PROPAGATE BOWEL MOVEMENT. ACUTE ON CHRONIC RENAL FAILURE - MONITOR LABS, RENALLY ADJUST MEDICATIONS CONSTIPATION - IMPROVED WITH PT HAVING MULTIPLE BOWEL MOVEMENTS YESTERDAY - MIRALAX AND COLACE AND MONITOR OUTPUT DIABETES MELLITUS - SUPPORTIVE CARE, MONITOR FSBS HYPERTENSION - MONITOR BP PERIPHERAL NEUROPATHY - HOME REGIMEN RESUMED WEAKNESS - WILL NEED THERAPY, CONTINUE WITH NURSING STAFF AMBULATING PT TID HYPONATREMIA - MONITOR LABS, IV FLUIDS EDEMA - IMPROVED AFTER LASIX THERAPY - DC IV FLUIDS Supervisory-Addendum Brief Verification & Attestation Participated in pt care: history, MDM, physical Personally performed: exam, history, MDM, supervision of care Care discussed with: Medical Student Procedures: n/a Results interpretation: Verified all documentation AGREE WITH STUDENT NOTE DOCUMENTED, SEE MY PERSONAL DOCUMENTATION. I PERSONALLY REVIEWED DATA, INTERVIEWED AND EXAMINED PT AND DISCUSSED THE PLAN OF CARE WITH PT AND HER . SUAD SHINE MED STUDENT Jun 13, 2021 08:37 DAVID PEREZ MD Jun 13, 2021 12:26
[2021-06-13] MEDS ORDERED: hydrALAZINE (APRESOLINE) 25 MG TAB PO ONE (09:30)
[2021-06-13] MEDS ORDERED: MAGNESIUM 1 GM/100 ML IVPB 100 ML IV ONE (09:30)
[2021-06-13] MEDS ORDERED: CALCIUM CARBONATE 600 MG (CALCARB) TAB PO ONE (09:30)
[2021-06-13] MEDS: ALPRAZolam 0.25 MG (XANAX) TAB PO SCH ×2 (10:40→21:02)
--- NOTE | 2021-06-13 11:47 | Diagnostic Imaging Report ---
EXAM: PA and lateral chest at 10:31 AM INDICATION: Atelectasis The borderline cardiomegaly noted on the prior exam of 08/04/2016 is again evident and not significantly changed. In the interval since the prior study, a small amount of atelectasis/infiltrate has developed in the right lung base. There also appear to be small bilateral pleural effusions present. In addition, on the PA view, there is a 1.5 mm oval density which was not clearly evident on the prior study. This finding cannot be identified on the lateral view and may be secondary to superimposition. The possibility that there is a parenchymal nodule in this area should still be considered. A follow-up chest exam would be recommended for continued evaluation. If this density persists, then CT of the chest may be necessary for further study. The mediastinum is not widened. The osseous structures are intact. IMPRESSION: 1. The appearance of the chest has worsened since the prior study as mild right lower lobe atelectasis/infiltrate and small bilateral pleural effusions have developed. 2. The vague nodular density overlying the right mid lung is of uncertain etiology. Considerations and recommendations as above. Dictated by: Dictated on workstation # [id number]
[2021-06-13 16:27] LABS: BILIRUBIN,URINE NEGATIVE (NEGATIVE); CLARITY,URINE CLOUDY; COLOR,URINE YELLOW; GLUCOSE, URINE (UA) NEGATIVE (NEGATIVE); KETONES,URINE NEGATIVE (NEGATIVE); LEUKOCYTE ESTERASE ,URINE 3+ (NEGATIVE); NITRITE,URINE NEGATIVE (NEGATIVE); PH,URINE 5.5 (5-9); PROTEIN,URINE NEGATIVE (NEGATIVE)
[2021-06-13 16:34] LABS: BACTERIA,URINE LARGE /HPF; RBC,URINE 0-2 /HPF; SQUAMOUS EPITHELIAL CELL,UR RARE /HPF; WBC,URINE 50-100 /HPF
[2021-06-13] MEDS: ALPRAZolam 0.25 MG (XANAX) TAB PO PRN (16:53)
[2021-06-13] MEDS ORDERED: cefTRIAXone 1,000 MG in WATER (STERILE) FOR INJECTION 10 ML IV SCH (18:00)
[2021-06-13] MEDS ORDERED: cefTRIAXone 1,000 MG VIAL ONE (18:09)
[2021-06-13] MEDS ORDERED: WATER (STERILE) FOR INJECTION 10 ML ONE (18:09)
[2021-06-13] MEDS: ACETAMINOPHEN 325 MG TABLET PO PRN (18:29)
[2021-06-13] MEDS: doxAzosin 2 MG (CARDURA) TAB PO SCH (21:02)
[2021-06-13] MEDS: IMIPRAMINE 25 MG (TOFRANIL) TAB PO SCH (21:03)
[2021-06-14] MEDS: hydrALAZINE (APRESOLINE) 25 MG TAB PO SCH ×3 (00:01→12:40)
[2021-06-14 03:57] VITALS: BP 133/73
[2021-06-14 06:20] LABS: HEMOGLOBIN 8.7 g/dL (11.5-16.0)
[2021-06-14 06:30] LABS: CALCIUM 8.2 MG/DL (8.5-10.1)
[2021-06-14 06:34] LABS: CREATININE SERUM 1.56 MG/DL (0.60-1.30)
[2021-06-14] MEDS: inSUlin ASPART (NovoLOG) 1 UNIT/0.01 ML (CHARGE PER UNIT) SC SCH ×2 (06:37→12:53)
[2021-06-14] MEDS: ACETAMINOPHEN 325 MG TABLET PO PRN (06:55)
[2021-06-14] MEDS: CATHETER FLUSH 10 ML SYR IV SCH (06:56)
[2021-06-14] MEDS ORDERED: CALCIUM CARBONATE 600 MG (CALCARB) TAB PO SCH (07:00)
--- NOTE | 2021-06-14 07:47 | Progress Note - Surgery ---
EMATYRELL 06/14/21 0747: Subjective Date Seen by a Provider: Jun 14, 2021 Time Seen by a Provider: 06:41 Subjective/Events-last exam PT recovering from anemia and cauterization of bleeding internal hemroids Small amounts of bright red blood continue to be present according to nursing. One BM last night with trace blood, urinating regularly. Hb remains stable from 8.8 to 8.7 today. Also hyponatremia has improved but remains low. Review of Systems General: No Chills, No Night Sweats, No Fatigue, No Malaise; Appetite HEENT: Head Aches; No Visual Changes, No Eye Pain, No Ear Pain, No Dysphasia, No Sinus Congestion, No Post Nasal Drip, No Sore Throat; Other Pulmonary: No Dyspnea, No Cough, No Pleuritic Chest Pain Cardiovascular: No: Chest Pain, Palpitations, Orthopnea, Paroxysmal Noc. Dyspnea, Edema, Lt Headedness Gastrointestinal: No: Nausea, Vomiting, Abdominal Pain, Diarrhea, Constipation, Melena, Hematochezia Genitourinary: No Dysuria, No Frequency, No Incontinence, No Hematuria, No Retention Musculoskeletal: No: neck pain, shoulder pain, arm pain, back pain, hand pain, leg pain, foot pain Neurological: Weakness, Numbness; No: Incoordination, Change in speech, Confusion, Seizures epitstaxis, secondary to dryness and picking Objective Exam Vital Signs Date Time Temp Pulse Resp B/P (MAP) Pulse Ox O2 Delivery O2 Flow Rate FiO2 06/14/21 03:57 36.8 91 22 133/73 (93) 96 Room Air 06/13/21 23:17 37.2 97 20 138/63 (88) 96 Room Air 06/13/21 21:04 93 18 98 Room Air 06/13/21 20:59 Room Air 06/13/21 19:28 37.0 106 18 142/63 (89) 96 Room Air 06/13/21 16:00 36.6 92 20 184/74 (110) 97 Room Air 06/13/21 11:35 36.5 95 20 149/64 (92) 98 Room Air 06/13/21 11:00 Room Air 06/13/21 08:00 97 Room Air I & O 06/14/21 07:00 Intake Total 2212 ml Output Total 800 ml Balance 1412 ml Capillary Refill : Less Than 3 Seconds General Appearance: No Apparent Distress, WD/WN, Obese HEENT: PERRL/EOMI, Pharynx Normal, Moist Mucous Membranes, Other (epitstaxis, secondary to dryness and picking) Neck: Full Range of Motion, Non Tender, Supple Respiratory: Chest Non Tender; No Lungs Clear; Normal Breath Sounds, No Accessory Muscle Use, No Respiratory Distress, Crackles (In left base - using ICS) Cardiovascular: Regular Rate, Rhythm, No Gallop, No Murmur, Normal Peripheral Pulses Peripheral Pulses: 2+ Radial Pulses (R), 2+ Radial Pulses (L) Gastrointestinal: non tender, soft, no organomegaly, no pulsatile mass Extremity: Normal Capillary Refill, Normal Range of Motion, Non Tender, No Calf Tenderness, Pedal Edema 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: Alert, Oriented x3, No Motor/Sensory Deficits, Normal Mood/Affect Skin: Normal Color, Warm/Dry Lymphatic: No Adenopathy (cervical, axillary) Results Lab Laboratory Tests 06/13/21 11:34: Glucometer 205H 06/13/21 15:58: Urine Color YELLOW, Urine Clarity CLOUDY, Urine pH 5.5, Urine Specific Babcock 1.010L, Urine Protein NEGATIVE, Urine Glucose (UA) NEGATIVE, Urine Ketones NEGATIVE, Urine Nitrite NEGATIVE, Urine Bilirubin NEGATIVE, Urine Urobilinogen 0.2, Urine Leukocyte Esterase 3+H, Urine RBC (Auto) NEGATIVE, Urine RBC 0-2, Urine WBC 50-100H, Urine Squamous Epithelial Cells RARE, Urine Crystals NONE, Urine Bacteria LARGEH, Urine Casts NONE, Urine Mucus NEGATIVE, Urine Culture Indicated YES 06/13/21 16:04: Glucometer 112H 06/13/21 20:15: Glucometer 155H 06/14/21 04:56: Glucometer 111H 06/14/21 06:00: Hemoglobin 8.7L, Hematocrit 26L, Sodium Level 132L, Potassium Level 4.0, Chloride Level 100, Carbon Dioxide Level 21, Anion Gap 11, Blood Urea Nitrogen 8, Creatinine 1.56H, Estimat Glomerular Filtration Rate 32, BUN/Creatinine Ratio 5, Glucose Level 136H, Calcium Level 8.2L Microbiology 06/13/21 Urine Culture - Preliminary, Resulted Gram Negative Fidel 06/09/21 MRSA Screen - Final, Complete MRSA not isolated Assessment/Plan Assessment/Plan Assessment/Plan B/L pleural effusions - per Radiology, will start IS and RT breathing treatments as needed Anemia -secondary to bleeding from internal hemorrhoids - improved Hyponatremia - improved Dehydration - resolved Acute Renal Failure Plan - Monitor for bleeding from surgical site, trace bleeding continues, maintain nutritional and intake sodium rich fluids, stool softener. Continue IS. RICHELLE MARTINEZ DO 06/14/21 1214: Subjective Time Seen by a Provider: 08:46 Subjective/Events-last exam Pt seen and examined, states she is doing fine but has some wheezing and "I'm all swollen". Also states she is going home today. Review of Systems General: No Chills, No Night Sweats; Malaise Pulmonary: No Dyspnea, No Cough Cardiovascular: No: Chest Pain, Palpitations Gastrointestinal: Hematochezia; No: Nausea, Vomiting, Abdominal Pain Objective Exam General Appearance: No Apparent Distress, Obese HEENT: Other (epitstaxis, secondary to dryness and picking) Respiratory: Normal Breath Sounds, No Accessory Muscle Use, No Respiratory Distress, Crackles (In left base - using ICS) Cardiovascular: Regular Rate, Rhythm, No Murmur Gastrointestinal: non tender, soft, no organomegaly Assessment/Plan Assessment/Plan Assessment/Plan B/L pleural effusions - per Radiology, will start IS and RT breathing treatments as needed Anemia -secondary to bleeding from internal hemorrhoids - improved Hyponatremia - improved Dehydration - resolved Acute Renal Failure Plan - Can d/c pt home and she should monitor for bleeding from rectum, trace bleeding still normal. She will be getting Lasix for swelling. Told to ambulate and use IS at home. Supervisory-Addendum Brief Verification & Attestation Participated in pt care: history, MDM, physical Personally performed: exam, history, MDM, supervision of care Care discussed with: Medical Student Procedures: n/a Verification and Attestation of Medical Student E/M Service A medical student performed and documented this service. I then reviewed and verified all information documented by the medical student and made modifications to such information, when appropriate. I personally performed a physical exam, medical decision making and then discussed any differences between the notes and made revisions as necessary to create one note. Richelle Martinez , 06/14/21 , 12:14 TYRELL BOO Jun 14, 2021 07:47 RICHELLE MARTINEZ DO Jun 14, 2021 12:14
[2021-06-14 08:00] VITALS: BP 147/64
[2021-06-14] MEDS: HYDROCORTISONE/PRAM (PROCTOFOAM HC) 10 GM CAN PR SCH (08:09)
[2021-06-14] MEDS: GABAPENTIN 400 MG (NEURONTIN) CAP PO SCH (08:09)
[2021-06-14] MEDS: DOCUSATE SODIUM 100 MG (COLACE) CAP PO SCH (08:09)
[2021-06-14] MEDS: ALPRAZolam 0.25 MG (XANAX) TAB PO SCH (08:09)
[2021-06-14] MEDS: PANTOPRAZOLE 40 MG (PROTONIX) TAB PO SCH (08:09)
[2021-06-14] MEDS: LOSARTAN 100 MG (COZAAR) TABLET PO SCH (08:09)
--- NOTE | 2021-06-14 09:35 | Discharge Summary ---
Diagnosis/Chief Complaint Date of Admission Jun 08, 2021 at 14:41 Date of Discharge Discharge Summary Discharge Physical Examination Allergies: Coded Allergies: NSAIDS (Non-Steroidal Anti-Inflamma (Verified Allergy, Intermediate, 01/07/14) STATES SHE GETS 'CRAZY' Sulfa (Sulfonamide Antibiotics) (Unverified Allergy, Unknown, 01/07/14) ampicillin (Unverified Allergy, Unknown, 01/07/14) prednisone (Unverified Adverse Reaction, Unknown, 03/06/14) Vitals & I&Os Vital Signs Date Time Temp Pulse Resp B/P (MAP) Pulse Ox O2 Delivery O2 Flow Rate FiO2 06/14/21 08:00 37.4 97 16 147/64 (91) 95 Room Air 06/10/21 16:28 2.00 Hospital Course Pending Labs Laboratory Tests 06/14/21 04:56: Glucometer 111 06/14/21 06:00: Hemoglobin 8.7, Hematocrit 26, Sodium Level 132, Potassium Level 4.0, Chloride Level 100, Carbon Dioxide Level 21, Anion Gap 11, Blood Urea Nitrogen 8, Creatinine 1.56, Estimat Glomerular Filtration Rate 32, BUN/Creatinine Ratio 5, Glucose Level 136, Calcium Level 8.2 Discharge Instructions to patient/family Please see electronic discharge instructions given to patient. Discharge Medications Reviewed and agree with Discharge Medication list on patient's Discharge Instruction sheet DAVID PEREZ MD Jun 14, 2021 09:35
--- NOTE | 2021-06-14 09:38 | D/C HH Face to Face Order ---
D/C Face to Face Orders Reconcile Patient Problems Problems Reviewed?: Yes [facility] Instructions/FollowUp: [address] wk follow up with [address] jean Physician to follow Patient: ted Discharge Diet for Home: ADA Diet Patient Problems: diabetes hypertension weakness rectal bleeding from hemorrhoids constipation weakness, gait instability peripheral neuropathy Goals for Patient: improved strength Patient Data-Allergies,Ht & Wt Patient Allergies: Coded Allergies: NSAIDS (Non-Steroidal Anti-Inflamma (Verified Allergy, Intermediate, 01/07/14) STATES SHE GETS 'CRAZY' Sulfa (Sulfonamide Antibiotics) (Unverified Allergy, Unknown, 01/07/14) ampicillin (Unverified Allergy, Unknown, 01/07/14) prednisone (Unverified Adverse Reaction, Unknown, 03/06/14) Height (Feet): 5 Height (Inches): 0.00 Weight (Pounds): 158 Weight (Ounces): 0.0 Home Health Need/Face to Face Date of Face to Face: Jun 14, 2021 Clinical Findings: Generalized weakness and fatigue, Muscle weakness, Pain with ambulation, Shortness of breath I have seen Pt [id number]: Yes Discharged To: Home Diagnosis/Conditions: diabetes hypertension weakness rectal bleeding from hemorrhoids constipation weakness, gait instability peripheral neuropathy Patient is Homebound due to: Muscle weakness, Pain w/ambulation Homebound Status Due to the above stated illness, injury or surgical procedure (medical condition or diagnosis) and associated clinical findings, the patient is homebound because of his/her inability to leave home except with aid of a supportive device and/or person AND leaving the home requires a considerable and taxing effort or is medically contraindicated. Pt req the following assistanc: [facility] Nursing Orders Home Health Services Order: Nursing Services, Physical Therapy-Evaluate & Treat cbc with diff and cmp in 4 days from dc - results to ted's office Home Health Infusion Therapy Line Start Date: Jun 11, 2021 Therapy Orders Therapy Orders: PT to assess for OT Therapy Specific Orders: Eval assistive deivces, Teach enviro modifications/safety, Increase strength/endurance Certify Stmt I certify that this patient is under my care and that I, a nurse practitioner or a physician; a therapy assistant working with me, had a face to face encounter that - meets the physician face to face encounter requirements with this patient as dated. Medication List: Active Scripts Active Reported ALPRAZolam 0.25 Mg Tablet 0.25 Mg PO TID PRN Vitamin D3 (Cholecalciferol (Vitamin D3)) 25 Mcg Capsule 25 Mcg PO DAILY Metanx Capsule (Levomefolate/B6/B12/Algal Oil) 1 Each Capsule 1 Each PO BID Glucosamine Chondroitin Cap (Glucos Sul 2Kcl/MSM/Chond/C/Mn) 1 Each Capsule 1 Each PO DAILY Dicyclomine HCl 20 Mg Tablet 20 Mg PO QID PRN Tradjenta (Linagliptin) 5 Mg Tablet 5 Mg PO DAILY Losartan Potassium 100 Mg Tablet 100 Mg PO DAILY Allopurinol 100 Mg Tablet 100 Mg PO DAILY Doxazosin Mesylate 2 Mg Tablet 2 Mg PO HS Magnesium Oxide 400 Mg Tablet 400 Mg PO DAILY PRN HOLD FOR LOOSE STOOLS Gabapentin 400 Mg Capsule 400 Mg PO BID Dexilant (Dexlansoprazole) 60 Mg Albaro.bp 60 Mg PO DAILY Premarin (Estrogens Conjugated) 1.25 Mg Tab 1.25 Mg PO DAILY Imipramine HCl 50 Mg Tablet 50 Mg PO HS Lab results: Laboratory Tests Test 06/13/21 11:34 06/13/21 15:58 06/13/21 16:04 06/13/21 20:15 Range/Units Glucometer 205 H 112 H 155 H 70-110 MG/DL Urine Color YELLOW Urine Clarity CLOUDY Urine pH 5.5 5-9 Urine Specific [place] 1.010 L 1.016-1.022 Urine Protein NEGATIVE NEGATIVE Urine Glucose (UA) NEGATIVE NEGATIVE Urine Ketones NEGATIVE NEGATIVE Urine Nitrite NEGATIVE NEGATIVE Urine Bilirubin NEGATIVE NEGATIVE Urine Urobilinogen 0.2 < = 1.0 MG/DL Urine Leukocyte Esterase 3+ H NEGATIVE Urine RBC (Auto) NEGATIVE NEGATIVE Urine RBC 0-2 /HPF Urine WBC 50-100 H /HPF Urine Squamous Epithelial Cells RARE /HPF Urine Crystals NONE /LPF Urine Bacteria LARGE H /HPF Urine Casts NONE /LPF Urine Mucus NEGATIVE /LPF Urine Culture Indicated YES Test 06/14/21 04:56 06/14/21 06:00 Range/Units Glucometer 111 H 70-110 MG/DL Hemoglobin 8.7 L 11.5-16.0 g/dL Hematocrit 26 L 35-52 % Sodium Level 132 L 135-145 MMOL/L Potassium Level 4.0 3.6-5.0 MMOL/L Chloride Level 100 98-107 MMOL/L Carbon Dioxide Level 21 21-32 MMOL/L Anion Gap 11 5-14 MMOL/L Blood Urea Nitrogen 8 7-18 MG/DL Creatinine 1.56 H 0.60-1.30 MG/DL Estimat Glomerular Filtration Rate 32 BUN/Creatinine Ratio 5 Glucose Level 136 H 70-105 MG/DL Calcium Level 8.2 L 8.5-10.1 MG/DL My orders: Orders - DAVID PEREZ MD Alprazolam Tablet (Xanax Tablet) (06/13/21 09:45) Hemoglobin And Hematocrit (06/14/21 05:00) Basic Metabolic Panel (06/14/21 05:00) Ua Culture If Indicated (06/13/21 16:21) Urine Culture (06/13/21 15:58) Ceftriaxone (Rocephin) (06/13/21 18:00) Hydralazine Tablet (Apresoline Tablet) (06/13/21 18:00) Hydralazine Tablet (Apresoline Tablet) (06/14/21 00:00) Attending Discharge Inpt/Inobs (06/14/21 09:35) Home [facility] Dischage (06/14/21 09:35) DAVID PEREZ MD Jun 14, 2021 09:38
[2021-06-14 12:00] VITALS: BP 129/60
[2021-06-14] MEDS ORDERED: FUROSEMIDE 40 MG/4 ML INJ (LASIX) IVP ONE (15:00)
[2021-06-14] MEDS: ALPRAZolam 0.25 MG (XANAX) TAB PO PRN (15:13)
[2021-06-14 16:00] VITALS: BP 123/72
== END 2021-06-14 17:10 | disposition home or self-care (01) ==
LOC: EDUNIT# 12:34 → ER 12:37 → 4TH 14:41
PROVIDERS: ADMIT Family Medicine; ATTEND Family Medicine
DX: K64.8 Other hemorrhoids (principal); K64.4 Residual hemorrhoidal skin tags; K62.5 Hemorrhage of anus and rectum; I38 Endocarditis, valve unspecified; K21.9 Gastro-esophageal reflux disease without esophagitis; M19.90 Unspecified osteoarthritis, unspecified site; F31.9 Bipolar disorder, unspecified; E87.1 Hypo-osmolality and hyponatremia; N18.9 Chronic kidney disease, unspecified; I13.10 Hypertensive heart and chronic kidney disease without heart failure, with stage 1 through stage 4 chronic kidney disease, or unspecified chronic kidney disease; E11.22 Type 2 diabetes mellitus with diabetic chronic kidney disease; D62 Acute posthemorrhagic anemia; E86.0 Dehydration; J90 Pleural effusion, not elsewhere classified; E66.9 Obesity, unspecified; E11.42 Type 2 diabetes mellitus with diabetic polyneuropathy; K59.09 Other constipation; E83.51 Hypocalcemia; Z79.899 Other long term (current) drug therapy; Z90.89 Acquired absence of other organs; Z90.710 Acquired absence of both cervix and uterus; Z68.33 Body mass index [BMI] 33.0-33.9, adult; Z90.5 Acquired absence of kidney; Z80.42 Family history of malignant neoplasm of prostate; Z82.3 Family history of stroke
CPT/HCPCS: 36410; 46930; 46999; 71046; 76937; 80048 ×4; 80053 ×2; 81000; 82728; 82947 ×7; 83540; 83550; 83735; 85007; 85014 ×3; 85018 ×3; 85025 ×2; 85027 ×2; 85610; 86850 ×2; 86900 ×2; 86901 ×2; 86920; 87077; 87081; 87088; 87186; 87636; 88304; 94664; 99283; C1751; G0378; P9016; 36415

== ENCOUNTER → 2021-06-09 | Outpatient (CLI) | payer MEDICARE, BC | LOC: CANPRECLI → LABNPT 13:55 | PROVIDERS: ATTEND Family Medicine | DX: Z53.9 Procedure and treatment not carried out, unspecified reason (principal) ==

== ENCOUNTER 2021-06-29 13:45 | Outpatient (CLI) | payer MEDICARE, BC ==
[~2021-06-29] VITALS: Ht 154.9 cm; Wt 75.0 kg
== END 2021-06-29 15:17 | disposition home or self-care (01) ==
LOC: PREOP 13:45
PROVIDERS: ATTEND Surgery
DX: Z01.818 Encounter for other preprocedural examination (principal)

== ENCOUNTER 2021-06-30 10:52 | Day surgery (SDC) | payer MEDICARE, BC ==
[~2021-06-30] VITALS: Ht 154 cm; Wt 75.0 kg
[2021-06-30] VITALS (7 sets, daily range): BP systolic 140–161; BP diastolic 48–76
[2021-06-30] MEDS ORDERED: LIDOCAINE/EPI 1%-1:100,000 (XYLOCAINE) 20ML ONE (11:05)
[2021-06-30] MEDS ORDERED: fentaNYL INJ 100 MCG/2 ML AMP ONE (11:31)
[2021-06-30] MEDS ORDERED: LIDOCAINE PF 2% 5 ML (XYLOCAINE) VIAL ONE (11:31)
[2021-06-30] MEDS ORDERED: proPOfol 200 MG/20 ML (DIPRIVAN) VIAL IV ONE (11:31)
[2021-06-30] MEDS ORDERED: MIDAZOLAM 2 MG/2 ML (VERSED) VIAL ONE (11:58)
[2021-06-30 11:59] LABS: HEMOGLOBIN 10.9 g/dL (11.5-16.0)
[2021-06-30] MEDS ORDERED: NS IV 500 ML 500 ML IV PRN (12:00)
[2021-06-30] MEDS ORDERED: LIDOCAINE UROJET 2% GEL 10 ML PKG ONE (12:17)
--- NOTE | 2021-06-30 12:41 | Progress Note-Post Operative ---
Post-Operative Progess Note Surgeon (s)/Senior Account Executive (s) Surgeon RICHELLE THAPA DO Senior Account Executive: ELLIE Perez Pre-Operative Diagnosis rectal bleed Post-Operative Diagnosis same Procedure & Operative Findings Date of Procedure 06/30/21 Procedure Performed/Findings Rectal Exam under anesthesia with cauterization of bleeding Anesthesia Type IV sedation by SKILLED LABOR Estimated Blood Loss Estimated blood loss (mL): scant Specimens/Packing Specimens Removed none RICHELLE THAPA DO Jun 30, 2021 12:41
--- NOTE | 2021-06-30 12:43 | Discharge Inst-Surgical ---
Discharge Inst-Surgical Depart Medication/Instructions New, Converted or Re-Newed RX: Other (NO rx needed) Patient Instructions Follow up Appt: Make appointment for 1 week. [phone] Instructions: No strenuous activity. May shower in 24 hours, no tub bath or soaking. Use incentive spirometer at home as directed. No Smoking Skin/Wound Care: Try holding pressure or even placing tampon to stop/control bleeding. Symptoms to Report: Appetite Changes, Extremity Discoloration, Numbness/Tingling, Swelling Increased, Bleeding Excessive, Eyesight Changes, Pain Increased, Urine Color Change, Constipation(Persistent), Fever over 101 degree F, Pain/Pressure in chest, Urinating Difficulty, Cough Up/Vomit Blood, Heart Beat Irreg/Pounding, Pain/Pressure in jaw, Cramps in feet or legs, Lightheadedness, Pain/Pressure in shoulder, Diarrhea(Persistent), Memory Changes Suddenly, Questions/Concerns, Weight gain consecutive days, Dizziness/Fainting, Nausea/Vomiting, Shortness of Breath, Weight gain over 2 pounds If questions or concerns contact your physician Or seek help at emergency department. Consults/Follow Up Patient Instructions: Take stool softeners Activity Activity as Tolerated: Yes Driving Instructions: No Driving/Refer to Dr. Davidson Discharge Diet: No Restrictions (increased fiber) If Any Problems/Questions/Issu: Contact Your Physician, Go to Emergency Room Skin/Wound Care Infection Signs and Symptoms: Increased Redness, Foul Odor of Wound, Increased Drainage, Skin Itchy or Has a Rash, Increased Swelling, Temperature Above 101 F Bathing Instructions: RICHELLE Reddy DO Jun 30, 2021 12:43
--- NOTE | 2021-06-30 21:09 | OPERATIVE REPORT ---
DATE OF SERVICE: PREOPERATIVE DIAGNOSIS: Rectal bleed. POSTOPERATIVE DIAGNOSIS: Rectal bleed. PROCEDURE PERFORMED: Rectal exam under anesthesia with cautery of bleeding. SURGEON: Casper Martinez DO. TOBACCO WRAPPING MACHINE TENDER: Jem Langston MS4. ANESTHESIA: IV sedation by the FORMING OPERATOR. SPECIMENS: None. BLOOD LOSS: Scant. FLUIDS: Per anesthesia. POSTOPERATIVE CONDITION: Stable. INDICATION FOR PROCEDURE: The patient is a 75-year-old female, who has been having some rectal bleeding, was in the hospital two or three weeks ago with bleeding, found to have small arteries pumping out blood, had it coagulated and she also had a large external hemorrhoidal skin tag removed. Since that time, she has continued to be oozing, was complaining of clots, feeling weakness. When I looked in the office, it looked like just raw areas that were bleeding. She came back a week later with similar complaints. We elected to try and go to the OR to see if we can fix this. FINDINGS: The patient had again some raw areas bleeding from the mucosa of the rectum and anus. No vessels really bleeding and nothing on the inside. PROCEDURE NOTE: After informed consent was obtained, the patient was brought to the operating room and placed on the table in a lithotomy position. She was sterilely prepped and draped in a normal fashion. Ischial tuberosity block was performed as well as local lidocaine blocks around the anus. There was some blood, cleaned out some fecal material. I then used the speculum to look inside. There was some blood inside, but did not see any bleeding in the rectal mucosa, but down in the distal rectum and anus, right on the edge of the mucosa, there was some bleeding in the lithotomy position. This bleeding was at 11 o'clock, 9 o'clock and 6 o'clock. We tried to control this bleeding with the Bovie electrocautery and then placed a sponge and held pressure for about 5 or 10 minutes. Looked again, delivered more cautery and then held pressure. At the end, there was no bleeding from this area, did not see any other obvious sources of bleeding and elected to place a Gelfoam sponge rolled up and then with some lidocaine jelly placed on it to hopefully hold pressure and hopefully continue to stop the bleeding. At this point, the area was then cleaned and dried, dressing placed to hold the Gelfoam in place as well as catch any bleeding and the patient was then transferred to recovery room in stable condition. Sponge, instrument and needle count correct at the end of the case. Job ID: [id number] DocumentID: [id number] Dictated Date: 06/30/2021 14:56:19 [place] Aide Date: 06/30/2021 21:07:41 Dictated By: DO ROCIO PAYAN
== END 2021-06-30 14:00 ==
LOC: SDC 10:52
PROVIDERS: ATTEND Surgery
DX: K62.5 Hemorrhage of anus and rectum (principal); I10 Essential (primary) hypertension; I77.9 Disorder of arteries and arterioles, unspecified; E11.9 Type 2 diabetes mellitus without complications; E66.9 Obesity, unspecified; R10.31 Right lower quadrant pain; F41.9 Anxiety disorder, unspecified; Z79.899 Other long term (current) drug therapy; Z68.31 Body mass index [BMI] 31.0-31.9, adult; Z79.82 Long term (current) use of aspirin; Z79.891 Long term (current) use of opiate analgesic; Z80.9 Family history of malignant neoplasm, unspecified
CPT/HCPCS: 36415; 82947; 85014; 85018; 87081

== ENCOUNTER → 2022-01-03 | Outpatient (CLI) | payer MEDICARE, BC ==
[~2022-01-03] MED LIST changes: +DICY20TA PO; -DICY20TA10 PO; -MAGN400T8 PO; +MGX400T PO
--- NOTE | 2022-01-03 15:40 | Diagnostic Imaging Report ---
INDICATION: Dyspnea. COMPARISON: 06/13/2021 FINDINGS: Frontal and lateral views the chest were obtained and show stable borderline prominence of cardiac silhouette. Pulmonary vasculature remains prominent. Sherri B lines are noted. Pulmonary interstitium is also mildly diffusely prominent. Small bibasilar effusions are present. There is no pneumothorax. Osseous structures show no gross acute abnormalities. IMPRESSION: 1. Borderline cardiomegaly with pulmonary vascular congestion, interstitial pulmonary edema, and small bibasilar effusions. Dictated by: Dictated on workstation # [id number]
== END ==
LOC: RAD 13:56
PROVIDERS: ATTEND Family Medicine
DX: J90 Pleural effusion, not elsewhere classified (principal); J81.1 Chronic pulmonary edema
CPT/HCPCS: 71046

== ENCOUNTER → 2022-12-27 | Outpatient (CLI) | payer BC, MEDICARE ==
--- NOTE | 2022-12-27 18:02 | Diagnostic Imaging Report ---
INDICATION: Right foot pain. COMPARISON: None available. TECHNIQUE: Three radiographs of the right foot dated 12/27/2022. FINDINGS: No acute fracture or dislocation. No destructive osseous process. Mild scattered degenerative changes are present. The Lisfranc joint is well aligned. Small posterior and plantar calcaneal enthesophytes. Focal soft tissue swelling is noted involving the dorsum of the forefoot without suspicious radiopaque foreign body. IMPRESSION: Soft tissue swelling involving the dorsum of the forefoot without suspicious radiopaque foreign body. No acute osseous abnormality with mild degenerative changes present. Dictated by: Dictated on workstation # [id number]
== END ==
LOC: RAD 15:39
PROVIDERS: ATTEND Family Medicine
DX: M79.89 Other specified soft tissue disorders (principal); M79.671 Pain in right foot
CPT/HCPCS: 73630

== ENCOUNTER → 2023-02-21 | Outpatient (CLI) | payer MEDICARE ==
--- NOTE | 2023-02-21 16:40 | Diagnostic Imaging Report ---
INDICATION: Cough. TIME OF EXAM: 4:36 PM. COMPARISON: Correlation is made to the prior chest from 01/03/2022. FINDINGS: The heart size is stable. The lungs are clear. No infiltrates are seen. There is no effusion or pneumothorax. IMPRESSION: No acute cardiopulmonary process is detected. Dictated by: Dictated on workstation # [id number]
== END ==
LOC: RAD 16:15
PROVIDERS: ATTEND Family Medicine
DX: R05.9 Cough, unspecified (principal)
CPT/HCPCS: 71046

== ENCOUNTER 2023-03-01 20:13 | Emergency (ER) | payer MEDICARE ==
[~2023-03-01] VITALS: Ht 152 cm; Wt 71.0 kg
[2023-03-01] MEDS ORDERED: hydrALAZINE (APESOLINE) 20 MG/ML VIAL IV ONE (20:45)
[2023-03-01] MEDS ORDERED: RT-ALBUTEROL/IPRATROPIUM 3 ML (DUONEB) VIAL INH ONE (20:45)
[2023-03-01 20:58] LABS: BASOPHILS % (AUTO) 0 % (0-10); EOSINOPHILS % (AUTO) 0 % (0-10); HEMATOCRIT 39 % (35-52); HEMOGLOBIN 12.6 g/dL (11.5-16.0); LYMPHOCYTES # (AUTO) 1.8 10^3/uL (1.0-4.0); LYMPHOCYTES % (AUTO) 15 % (12-44); MEAN CORPUSCULAR HEMOGLOBIN 28 pg (25-34); MEAN CORPUSCULAR HGB CONC 33 g/dL (32-36); MEAN CORPUSCULAR VOLUME 87 fL (80-99); MEAN PLATELET VOLUME 10.6 fL (9.0-12.2); MONOCYTES # (AUTO) 0.6 10^3/uL (0.0-1.0); MONOCYTES % (AUTO) 5 % (0-12); NEUTROPHILS # (AUTO) 9.4 10^3/uL (1.8-7.8); NEUTROPHILS % (AUTO) 79 % (42-75); PLATELET COUNT 236 10^3/uL (130-400); WHITE BLOOD COUNT 11.9 10^3/uL (4.3-11.0)
[2023-03-01 21:04] LABS: ALBUMIN 3.6 GM/DL (3.2-4.5); CHLORIDE 104 MMOL/L (98-107); POTASSIUM 4.7 MMOL/L (3.6-5.0); SODIUM 136 MMOL/L (135-145)
[2023-03-01 21:05] LABS: CALCIUM 9.9 MG/DL (8.5-10.1)
[2023-03-01 21:07] LABS: GLUCOSE 156 MG/DL (70-105); TOTAL PROTEIN 7.7 GM/DL (6.4-8.2)
[2023-03-01 21:08] LABS: BILIRUBIN,TOTAL 0.3 MG/DL (0.1-1.0); CARBON DIOXIDE 19 MMOL/L (21-32)
[2023-03-01 21:10] LABS: ALKALINE PHOSPHATASE 85 U/L (40-136); CREATININE SERUM 1.41 MG/DL (0.60-1.30); GFR ESTIMATED 38
[2023-03-01 21:11] LABS: BUN/CREATININE RATIO 16
[2023-03-01 21:13] LABS: ALANINE AMINOTRANSFERASE 10 U/L (0-55)
[2023-03-01 21:15] LABS: CREATINE KINASE 23 U/L (29-168)
--- NOTE | 2023-03-01 21:19 | Diagnostic Imaging Report ---
PROCEDURE: CT chest without contrast. TECHNIQUE: Multiple contiguous axial images were obtained through the chest without the use of intravenous contrast. Auto Exposure Controls were utilized during the CT exam to meet ALARA standards for radiation dose reduction. INDICATION: Cough. Dyspnea. COMPARISON: 04/11/2021. FINDINGS: Cardiomediastinal structures show mild cardiomegaly. There is no large pericardial effusion. There is mild to moderate scattered calcified aortic atherosclerosis. Mild calcified coronary atherosclerotic disease is also present. A few small mediastinal lymph nodes are noted. No pathologically enlarged or morphologically abnormal adenopathy is seen within the shahana or axilla. Lungs are clear. There is no focal consolidation, large effusion or pneumothorax. No suspicious pulmonary nodule or mass is seen. Osseous structures show age-related degenerative changes. No lytic or blastic bony lesions are seen. Included portions of the upper abdomen show cirrhotic morphology to the liver. IMPRESSION: 1. No acute cardiopulmonary process. 2. Mild cardiomegaly. 3. Cirrhosis of the liver. Dictated by: Dictated on workstation # [id number]
[2023-03-01 21:20] LABS: ERYTHROCYTE SEDIMENTATION RATE 37 MM/HR (0-30)
--- NOTE | 2023-03-01 21:20 | Diagnostic Imaging Report ---
INDICATION: Dyspnea COMPARISON: 02/21/2023. FINDINGS: Single frontal view of the chest demonstrates mild cardiomegaly. Pulmonary vasculature, however, is within normal limits. Lungs show low inspiratory volumes, but are otherwise clear. No large pleural effusion or pneumothorax is seen. The visualized osseous structures show no acute abnormality. IMPRESSION: Mild cardiomegaly, but no evidence of failure or focal infiltrate. Dictated by: Dictated on workstation # [id number]
[2023-03-01 21:22] LABS: CREATINE KINASE MB 1.5 NG/ML (<6.6)
[2023-03-01 21:23] LABS: FIBRIN DEGRADATION PRODUCTS <= 0.27 UG/ML (0.00-0.49); INR 0.9 (0.8-1.4); PARTIAL THROMBOPLASTIN TIME 35 SEC (24-35); PROTHROMBIN TIME PATIENT 12.4 SEC (12.2-14.7)
[2023-03-01] MEDS ORDERED: PROMETHAZINE/ CODEINE SYRUP 5 ML UDC PO ONE (21:45)
[2023-03-01] MEDS ORDERED: PROM5SYR PO (21:46)
[2023-03-01] MEDS ORDERED: BUDE1AMP IH (21:46)
--- NOTE | 2023-03-01 21:46 | ED Cough/URI ---
General Chief Complaint: Cough/Cold/Flu Symptoms Stated Complaint: COUGHING Nursing Triage Note: PT IS BROUGHT TO ED POV BY SPOUSE FOR A COUGH SINCE NOVEMBER. PER PT SHE HAS BEEN SEEING DR. WELCH BUT HAS BEEN GETTING WORSE. THE COUGH WON'T LET HER SLEEP AT NIGHT. PT AND SPOUSE AMB. TO ROOM 10. Source: patient History of Present Illness Date Seen by Provider: Mar 01, 2023 Time Seen by Provider: 20:19 Initial Comments PT ARRIVES VIA POV FROM HOME WITH C/O PRODUCTIVE COUGH SINCE NOVEMBER SHE HAS HAD ONGOING SHORTNESS OF BREATH WITH IT WELL SYMPTOMS HAVE BEEN WORSE SINCE LAST NIGHT "OR MONDAY NIGHT" NO FEVER AT ANY TIME CHEST IS SORE AND HURTS TO COUGH SHE STATES SHE SLEPT ALL DAY TODAY ( BECAUSE SHE WAS UP ALL NIGHT COUGHING LAST NIGHT) AND DIDN'T COUGH ONCE UNTIL SHE WOKE UP SHE HAS USED A MULTITUDE OF COUGH MEDICATIONS, AND INHALERS FOR THIS PROBLEM AND STATES "NOTHING HELPS" SHE IS CURRENTLY ON TESSALON PERLES, TRELEGY INHALER ( SHE HAS NOT USED SINCE YESTERDAY), ALBUTEROL NEBULIZER--LAST USED AT 1800. SHE HAS BEEN ON 2 ROUNDS OF ZITHROMAX--IN DECEMBER AND AGAIN IN JANUARY--NO IMPROVEMENT IN SYMPTOMS SHE DENIES HAVING COPD OR ASTHMA SHE IS A NON-SMOKER. PT HAS CHRONIC RENAL INSUFFICIENCY AND STATES SHE ONLY HAS 1 KIDNEY HER NEPROLOGIST TOOK HER OFF HER DIURETIC IN DECEMBER DUE TO RENAL DISEASE. SHE HAS CHRONIC/STABLE LEG AND ANKLE/FEET SWELLING. NO CALF PAIN NO ORTHOPNEA ADDITIONALLY, SHE HAS SIGNIFICANT HYPERTENSION, AND HER HYDRALAZINE HAS BEEN INCREASED TO 25 MG TWICE A DAY IN THE LAST MONTH OR TWO. SHE IS NOT ON ANY RONNA INHIBITORS OR ANY RONNA-2 INHIBITORS/ARB'S. SHE IS NOT COVID OR FLU VACCINATED. PCP: DR. WELCH FINANCIAL INSTITUTION TREASURER:DR. FRANK IN [place] Allergies and Home Medications Allergies Coded Allergies: baclofen (Verified Allergy, Severe, 03/01/23) NSAIDS (Non-Steroidal Anti-Inflamma (Verified Allergy, Intermediate, 06/30/21) STATES SHE GETS 'CRAZY' Sulfa (Sulfonamide Antibiotics) (Verified Allergy, Unknown, 06/30/21) ampicillin (Verified Allergy, Unknown, 06/30/21) prednisone (Verified Adverse Reaction, Unknown, 06/30/21) Patient Home Medication List Home Medication List Reviewed: Yes ALPRAZolam (ALPRAZolam) 0.25 Mg Tablet, 0.25 MG PO TID PRN for ANXIETY, (Reported) Entered as Reported by: AXEL LICEA on 06/08/21 1556 Allopurinol (Allopurinol) 100 Mg Tablet, 100 MG PO DAILY, (Reported) Entered as Reported by: LUIS PRADHAN on 05/20/20 1434 Budesonide (Pulmicort) 1 Mg/2 Ml Ampul.neb, 1 MG IH BID Prescribed by: DOUG JUSTICE on 03/01/23 2146 Cholecalciferol (Vitamin D3) (Vitamin D3) 25 Mcg Capsule, 25 MCG PO DAILY, (Reported) Entered as Reported by: LUIS PRADHAN on 05/25/20 1218 Dexlansoprazole (Dexilant) 60 Mg Albaro., 60 MG PO DAILY, (Reported) Entered as Reported by: LUIS PRADHAN on 05/20/20 1434 Dicyclomine HCl (Dicyclomine HCl) 20 Mg Tablet, 20 MG PO QID PRN for ABDOMINAL CRAMPING, (Reported) Entered as Reported by: LUIS PRADHAN on 05/25/20 1218 Doxazosin Mesylate (Doxazosin Mesylate) 2 Mg Tablet, 2 MG PO HS, (Reported) Entered as Reported by: LUIS PRADHAN on 05/20/20 1434 Estrogens Conjugated (Premarin) 1.25 Mg Tab, 1.25 MG PO DAILY, (Reported) Entered as Reported by: LUIS PRADHAN on 05/20/20 1434 Gabapentin (Gabapentin) 400 Mg Capsule, 400 MG PO BID, (Reported) Entered as Reported by: LUIS PRADHAN on 05/20/20 1434 Glucos Sul 2Kcl/MSM/Chond/C/Mn (Glucosamine Chondroitin Cap) 1 Each Capsule, 1 EACH PO DAILY, (Reported) Entered as Reported by: LUIS PRADHAN on 05/25/20 1218 Imipramine HCl (Imipramine HCl) 50 Mg Tablet, 50 MG PO HS, (Reported) Entered as Reported by: LUIS PRADHAN on 05/20/20 1434 Levomefolate/B6/B12/Algal Oil (Metanx Capsule) 1 Each Capsule, 1 EACH PO BID, (Reported) Entered as Reported by: LUIS PRADHAN on 05/25/20 1218 Linagliptin (Tradjenta) 5 Mg Tablet, 5 MG PO DAILY, (Reported) Entered as Reported by: LUIS PRADHAN on 05/20/20 1434 Losartan Potassium (Losartan Potassium) 100 Mg Tablet, 100 MG PO DAILY, (Reported) Entered as Reported by: LUIS PRADHAN on 05/20/20 1434 Magnesium Oxide (Magnesium Oxide) 400 Mg Tablet, 400 MG PO DAILY PRN for MUSCLE CRAMPS, (Reported) Entered as Reported by: LUIS PRADHAN on 05/20/20 1434 Promethazine HCl/Codeine (Prometh-Codein 6.25-10 mg/5 ml) 6.25 Mg-10 Mg/5 Ml (5 Ml) Syrup, 5 ML PO Q4H Prescribed by: DOUG JUSTICE on 03/01/232145 Review of Systems Review of Systems Constitutional: no symptoms reported; No chills, No diaphoresis, No dizziness, No fever, No malaise, No weakness EENTM: see HPI; No nose congestion Respiratory: see HPI, cough, phlegm, short of breath; No wheezing Cardiovascular: see HPI Gastrointestinal: no symptoms reported Genitourinary: no symptoms reported Musculoskeletal: no symptoms reported Skin: no symptoms reported Psychiatric/Neurological: Anxiety Hematologic/Lymphatic: No Symptoms Reported Immunological/Allergic: no symptoms reported Past Okihjli-Lllucm-Iiycpj Hx Patient Social History Tobacco Use?: No Smoking Status: Never a Smoker Substance use?: No Alcohol Use?: No Pt feels they are or have been: No Immunizations Up To Date Tetanus Booster (TDap): Unknown First/Initial COVID19 Vaccinat: unknown 2019 Second COVID19 Vaccination Akira: unknown 2019 Third COVID19 Vaccination Date: BRITNEY COVID19 Vaccine Parent Trainer: Aniya Seasonal Allergies Seasonal Allergies: No Past Medical History Surgery/Hospitalization HX: LOST A KIDNEY 1975, NUEROPATHY, HTN, SURG.-APPENDECTOMY, CHOLECYSTECTOMY, HYST., COLONOSCOPY Surgeries: Yes (excision of skin cancer on right hand) Appendectomy, Gallbladder, Hysterectomy, Nephrectomy Respiratory: No Currently Using CPAP: No Currently Using BIPAP: No Cardiac: Yes Hypertension, Peripheral Vascular, Valvular Heart Disease Neurological: Yes Neuropathy 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, Menopausal Genitourinary: Yes (CHRONIC RENAL INSUFFICIENCY, kidney removed after injury from sx) Gastrointestinal: Yes Gastroesophageal Reflux, Gastrointestinal Bleed, Polyps Musculoskeletal: Yes Arthritis Endocrine: Yes Diabetes, Non-Insulin dep HEENT: Yes Cataract Hearing Impairment: Hard of Hearing Cancer: Yes Skin Did You Recieve Any Treatments: Yes What Type of Treatment Did You: Surgical Intervention Psychosocial: Yes Anxiety Integumentary: Yes (SKIN CANCER) Blood Disorders: No Adverse Reaction/Blood Tranf: No Family Medical History Cataract 03 FATHER 03 MOTHER 09 BROTHER 09 BROTHER Dementia 03 MOTHER Family history: Allergy 09 BROTHER Family history: Arthritis 03 MOTHER Family history: Diabetes mellitus 09 BROTHER Family history: Glaucoma 03 MOTHER Family history: Osteoporosis 03 MOTHER Hereditary disease 03 MOTHER Prostate cancer 03 FATHER Stroke 03 MOTHER No Family History of: Abdominal aortic aneurysm [place]'s disease Alcoholism Aphasia Cancer Cancer of colon Chest pain Congenital heart disease Congestive heart failure Cystic fibrosis Dysphagia Family history: Alzheimer's disease Family history: Asthma Family history: Breast disease Family history: Cardiovascular disease Family history: Coronary thrombosis Family history: Gastrointestinal disease Family history: Hypertension Family history: Thyroid disorder Headache Hearing loss Heart disease History of - anemia History of - disorder History of - respiratory disease History of drug abuse Human immunodeficiency virus (HIV) seropositivity Hypercholesterolemia Infertile Kidney disease Malignant neoplasm of lung Myocardial infarction Parkinson's disease Psychotic disorder Seizure disorder Tuberculosis Visual impairment Cancer, Diabetes, Stroke Physical Exam Vital Signs - First Documented 03/01/23 03/01/23 20:28 20:30 Temp 36.9 Pulse 80 Resp 22 B/P (MAP) 200/102 (134) Pulse Ox 91 O2 Delivery Room Air O2 Flow Rate 2.00 Capillary Refill : Less Than 3 Seconds Height: 5'0.00" Weight: 158lbs. 0.0oz. [id number]; 30.00 BMI Method:Stated General Appearance: WD/WN, no apparent distress, other (ANXIOUS, FREQUENT NON- PRODUCTIVE COUGH. ) HEENT: PERRL/EOMI, normal ENT inspection, TMs normal, pharynx normal, other (NO SINUS TENDERNESS. ) Neck: non-tender, full range of motion, supple, normal inspection Respiratory: normal breath sounds, no respiratory distress, no accessory muscle use Cardiovascular: regular rate, rhythm, no murmur Gastrointestinal: non tender, soft Extremities: normal range of motion, non-tender, no calf tenderness, normal capillary refill, pedal edema (1+ EDEMA BILATERALLY) 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: scientific aide II-XII nml as tested, no motor/sensory deficits, alert, oriented x 3 Skin: normal color, warm/dry Progress/Results/Core Measures Suspected Sepsis SIRS Temperature: Pulse: 80 Respiratory Rate: 22 Laboratory Tests 03/01/23 20:47: White Blood Count 11.9H Blood Pressure 200 /102 Mean: 134 Laboratory Tests 03/01/23 20:47: Creatinine 1.41H, INR Comment 0.9, Platelet Count 236, Total Bilirubin 0.3 Results/Orders Lab Results Laboratory Tests Test 03/01/23 20:28 03/01/23 20:47 Range/Units Influenza Type A (RT-PCR) Not Detected Not Detecte Influenza Type B (RT-PCR) Not Detected Not Detecte SARS-CoV-2 RNA (RT-PCR) Not Detected Not Detecte White Blood Count 11.9 H 4.3-11.0 10^3/uL Red Blood Count 4.44 3.80-5.11 10^6/uL Hemoglobin 12.6 11.5-16.0 g/dL Hematocrit 39 35-52 % Mean Corpuscular Volume 87 80-99 fL Mean Corpuscular Hemoglobin 28 25-34 pg Mean Corpuscular Hemoglobin Concent 33 32-36 g/dL Red Cell Distribution Width 13.8 10.0-14.5 % Platelet Count 236 130-400 10^3/uL Mean Platelet Volume 10.6 9.0-12.2 fL Immature Granulocyte % (Auto) 0 % Neutrophils (%) (Auto) 79 H 42-75 % Lymphocytes (%) (Auto) 15 12-44 % Monocytes (%) (Auto) 5 0-12 % Eosinophils (%) (Auto) 0 0-10 % Basophils (%) (Auto) 0 0-10 % Neutrophils # (Auto) 9.4 H 1.8-7.8 10^3/uL Lymphocytes # (Auto) 1.8 1.0-4.0 10^3/uL Monocytes # (Auto) 0.6 0.0-1.0 10^3/uL Eosinophils # (Auto) 0.0 0.0-0.3 10^3/uL Basophils # (Auto) 0.0 0.0-0.1 10^3/uL Immature Granulocyte # (Auto) 0.0 0.0-0.1 10^3/uL Erythrocyte Sedimentation Rate 37 H 0-30 MM/HR Prothrombin Time 12.4 12.2-14.7 SEC INR Comment 0.9 0.8-1.4 Activated Partial Thromboplast Time 35 24-35 SEC D-Dimer <= 0.27 0.00-0.49 UG/ML Sodium Level 136 135-145 MMOL/L Potassium Level 4.7 3.6-5.0 MMOL/L Chloride Level 104 98-107 MMOL/L Carbon Dioxide Level 19 L 21-32 MMOL/L Anion Gap 13 5-14 MMOL/L Blood Urea Nitrogen 22 H 7-18 MG/DL Creatinine 1.41 H 0.60-1.30 MG/DL Estimat Glomerular Filtration Rate 38 BUN/Creatinine Ratio 16 Glucose Level 156 H 70-105 MG/DL Calcium Level 9.9 8.5-10.1 MG/DL Corrected Calcium 10.2 H 8.5-10.1 MG/DL Magnesium Level 2.0 1.6-2.4 MG/DL Total Bilirubin 0.3 0.1-1.0 MG/DL Aspartate Amino Transf (AST/SGOT) 24 5-34 U/L Alanine Aminotransferase (ALT/SGPT) 10 0-55 U/L Alkaline Phosphatase 85 40-136 U/L Total Creatine Kinase 23 L 29-168 U/L Creatine Kinase MB 1.5 <6.6 NG/ML Myoglobin 54.3 10.0-92.0 NG/ML Troponin I < 0.028 <0.028 NG/ML C-Reactive Protein High Sensitivity 2.42 H 0.00-0.50 MG/DL B-Type Natriuretic Peptide 136.3 H <100.0 PG/ML Total Protein 7.7 6.4-8.2 GM/DL Albumin 3.6 3.2-4.5 GM/DL My Orders Orders - DOUG JUSTICE DO Covid 19 Inhouse Test (03/01/23 20:18) Influenza A And B By Pcr (03/01/23 20:18) Isolation Central Supply Req (03/01/23 20:18) Ed Iv/Invasive Line Start (03/01/23 20:30) Ekg Tracing (03/01/23 20:30) O2 (03/01/23 20:30) Monitor-Rhythm Ecg Trace Only (03/01/23 20:30) Bnp [place] (03/01/23 20:30) Cbc With Automated Diff (03/01/23 20:30) Comprehensive Metabolic Panel (03/01/23 20:30) Creatine Kinase (03/01/23 20:30) Creatine Kinase Mb (03/01/23 20:30) Hs C Reactive Protein (03/01/23 20:30) Fibrin Degradation Products (03/01/23 20:30) Magnesium (03/01/23 20:30) Protime With Inr (03/01/23 20:30) Partial Thromboplastin Time (03/01/23 20:30) Erythrocyte Sedimentation Rate (03/01/23 20:30) Myoglobin Serum (03/01/23 20:30) Troponin I [place] (03/01/23 20:30) Hydralazine Injection (Apresoline Inject (03/01/23 20:45) Albuterol/Ipra Inhalation Soln (Duoneb I (03/01/23 20:45) Rt Request For Service (03/01/23 20:32) Svn Small Volume Nebulizer (03/01/23 20:32) Chest 1 View, Ap/Pa Only (03/01/23 20:42) Ct Chest Wo (03/01/23 20:42) Promethazine/ Codeine Syrup (Phenergan W (03/01/23 21:45) Medications Given in ED Current Medications Medications Dose Ordered Sig/Olga Lidia Route Start Time Stop Time Status Last Admin Dose Admin Albuterol/ Ipratropium 3 ml ONCE ONCE INH 03/01/23 20:45 03/01/23 20:46 DC 03/01/23 20:53 3 ML Hydralazine HCl 10 mg ONCE ONCE IV 03/01/23 20:45 03/01/23 20:46 DC 03/01/23 20:47 10 MG Promethazine HCl/ Codeine 5 ml ONCE ONCE PO 03/01/23 21:45 03/01/23 21:46 DC 03/01/23 22:00 5 ML Vital Signs/I&O 03/01/23 03/01/23 03/01/23 03/01/23 20:28 20:30 20:52 20:53 Temp 36.9 Pulse 80 Resp 22 B/P (MAP) 200/102 (134) Pulse Ox 91 94 92 O2 Delivery Room Air Nasal Cannula Nasal Cannula Nasal Cannula O2 Flow Rate 2.00 2.00 03/01/23 22:05 Pulse 91 B/P (MAP) 191/89 Pulse Ox 94 O2 Delivery Nasal Cannula O2 Flow Rate 2.00 Capillary Refill : Less Than 3 Seconds Blood Pressure Mean: 134 Progress Note : Progress Note PLACED IN ISOLATION ROOM PPE WORN COVID AND FLU TESTING DONE GIVEN NEB TREATMENT PT STATES SHE CANNOT TAKE PREDNISONE--CAUSES INCREASED ANXIETY. O2 SATS 91% ON ARRIVAL, PLACED ON O2 AT 2L/NC--O2 SAT UP TO 94% AT DISMISSAL, SATS ARE 92-93/% ON ROOM AIR. BLOOD PRESSURE IS ELEVATED ON ARRIVAL, IS COMING DOWN WITHOUT TREATMENT ALL LABS AND TESTS ARE REASSURING--NO ACUTE PROCESS IS NOTED AT THIS TIME. NO DETERIORATION IN PT'S CONDITION DURING ER STAY DISCUSSED TEST RESULTS, ANTICIPATED COURSE, SYMPTOMATIC TREATMENT, MEDICATIONS, NEED FOR FOLLOW UP AND RETURN PRECAUTIONS. REVIEWED PRIOR RECORDS, INCLUDING ER VISITS, ADMITS/H&P'S/CONSULTS/DISCHARGE SUMMARIES, TESTS/PROCEDURES ECG Initial ECG Impression Date: Mar 01, 2023 Initial ECG Impression Time: 20:49 Initial ECG Rate: 82 Initial ECG Rhythm: Normal Sinus Initial ECG Intervals: Normal Initial ECG Impression: Normal Initial ECG Comparisson: Unchanged (NO SIGNIFICANT CHANGE FROM 09/2010, OTHER THAN IMPROVED VOLTAGE. ) Comment INTERPRETED BY ME Diagnostic Imaging Comments CXR--PER RADIOLOGIST REPORT AT 2125 -NO ACUTE PROCESS, MILD CARDIOMEGALY CT CHEST--PER RADIOLOGIST REPORT AT 2125 -NO ACUTE PROCESS -MILD CARDIOMEGALY -CIRRHOSIS OF LIVER Reviewed: Reviewed by Me Departure Communication (Admissions) 2126--SPOKE WITH DR. WELCH, WILL TRY STEROID NEBULIZER MEDICATION, WELL PHENERGAN WITH CODEINE COUGH SYRUP TO HER CURRENT MEDICATIONS, AND SHE WILL FOLLOW UP IN CLINIC IN THE NEXT WEEK. SHE AND FINANCIAL INSTITUTION TREASURER HAVE BOTH TRIED A MULTITUDE OF TREATMENTS FOR THIS PROBLEM. THERE IS SOME SPECULATION THAT SHE MAY HAVE HAD COVID IN NOVEMBER, AND IS HAVING POST-COVID CHRONIC COUGH/RESPIRATORY ISSUES. Impression Primary Impression: Unexplained chronic cough Disposition: HOME, SELF-CARE Condition: Stable Departure-Patient Inst. Decision time for Depature: 21:43 Referrals: ARACELI WELCH DO (PCP/Family) Primary Care Physician Patient Instructions: Cough, Adult ED Add. Discharge Instructions: CONTINUE YOUR REGULAR MEDICATIONS PRESCRIBED CONTINUE ALBUTEROL NEBULIZER TREATMENTS EVERY 4 HOURS NEEDED WILL BE ADDING ANOTHER NEBULIZER MEDICATION FOR YOU TO USE TWICE A DAY EVERY DAY CONTINUE YOUR TESSALON PERLES THREE TIMES A DAY FOR COUGH FOLLOW UP WITH DR. WELCH THIS WEEK FOR FURTHER CARE All discharge instructions reviewed with patient and/or family. Voiced understanding. Scripts Budesonide (Pulmicort) 1 Mg/2 Ml Ampul.neb 1 MG IH BID, #1 EA Prov: DOUG JUSTICE DO 03/01/23 Promethazine HCl/Codeine (Prometh-Codein 6.25-10 mg/5 ml) 6.25 Mg-10 Mg/5 Ml (5 Ml) Syrup 5 ML PO Q4H for Cough, #120 ML Prov: DOUG JUSTICE DO 03/01/23 DOUG JUSTICE DO Mar 01, 2023 21:46
[2023-03-01 22:05] VITALS: BP 191/89
== END 2023-03-01 22:05 | disposition home or self-care (01) ==
LOC: EDUNIT# 20:13 → ER 20:16
DX: R05.3 Chronic cough (principal); I12.9 Hypertensive chronic kidney disease with stage 1 through stage 4 chronic kidney disease, or unspecified chronic kidney disease; E11.22 Type 2 diabetes mellitus with diabetic chronic kidney disease; N18.9 Chronic kidney disease, unspecified; E11.40 Type 2 diabetes mellitus with diabetic neuropathy, unspecified; Z90.5 Acquired absence of kidney; Z20.822 Contact with and (suspected) exposure to COVID-19; Z86.16 Personal history of COVID-19; Z28.310 Unvaccinated for COVID-19
CPT/HCPCS: 36415; 71045; 71250; 80053; 82550; 82553; 83735; 83874; 83880; 84484; 85025; 85379; 85610; 85652; 85730; 86141; 87636; 93005; 93041; 94640

== ENCOUNTER 2023-05-24 09:38 | Emergency (ER) | payer MEDICARE ==
[~2023-05-24] VITALS: Ht 152.4 cm; Wt 70.3 kg
[~2023-05-24 09:38] MED LIST changes: +BUDE1AMP IH; -LOSA100T57 PO; +LOSA100T58 PO; +PROM5SYR PO
[2023-05-24 10:02] LABS: BASOPHILS % (AUTO) 0 % (0-10); EOSINOPHILS % (AUTO) 0 % (0-10); HEMATOCRIT 31 % (35-52); HEMOGLOBIN 9.9 g/dL (11.5-16.0); LYMPHOCYTES # (AUTO) 2.2 10^3/uL (1.0-4.0); LYMPHOCYTES % (AUTO) 19 % (12-44); MEAN CORPUSCULAR HEMOGLOBIN 28 pg (25-34); MEAN CORPUSCULAR HGB CONC 32 g/dL (32-36); MEAN CORPUSCULAR VOLUME 87 fL (80-99); MEAN PLATELET VOLUME 11.3 fL (9.0-12.2); MONOCYTES % (AUTO) 9 % (0-12); NEUTROPHILS # (AUTO) 8.4 10^3/uL (1.8-7.8); NEUTROPHILS % (AUTO) 71 % (42-75); PLATELET COUNT 202 10^3/uL (130-400); WHITE BLOOD COUNT 11.8 10^3/uL (4.3-11.0)
[2023-05-24 10:14] LABS: ALBUMIN 3.2 GM/DL (3.2-4.5)
[2023-05-24 10:15] LABS: CALCIUM 9.7 MG/DL (8.5-10.1)
[2023-05-24 10:17] LABS: TOTAL PROTEIN 7.1 GM/DL (6.4-8.2)
[2023-05-24 10:19] LABS: BILIRUBIN,TOTAL 0.3 MG/DL (0.1-1.0)
[2023-05-24 10:20] LABS: CREATININE SERUM 2.22 MG/DL (0.60-1.30)
[2023-05-24 10:30] LABS: BILIRUBIN,URINE NEGATIVE (NEGATIVE); CLARITY,URINE CLEAR; COLOR,URINE YELLOW; GLUCOSE, URINE (UA) NEGATIVE (NEGATIVE); KETONES,URINE NEGATIVE (NEGATIVE); LEUKOCYTE ESTERASE ,URINE NEGATIVE (NEGATIVE); NITRITE,URINE NEGATIVE (NEGATIVE); PROTEIN,URINE TRACE (NEGATIVE)
[2023-05-24] MEDS ORDERED: NS IV 500 ML 500 ML IV ONE (10:30)
--- NOTE | 2023-05-24 10:35 | Diagnostic Imaging Report ---
PROCEDURE: CT head and CT cervical spine without contrast. TECHNIQUE: Multiple contiguous axial images were obtained through the brain and cervical spine without the use of intravenous contrast. Sagittal and coronal reformations through the cervical spine were then performed. Auto Exposure Controls were utilized during the CT exam to meet ALARA standards for radiation dose reduction. INDICATION: Fall with head and neck pain. Correlation is made with prior CT from 04/11/2021. CT HEAD: The ventricles and sulci are within normal limits. No sulcal effacement or midline shift is identified. No acute intra-axial or extra-axial hemorrhage is detected. Cisterns are patent. Visualized paranasal sinuses are clear. IMPRESSION: No acute intracranial process is identified. CT cervical spine: Curvature and alignment of the cervical spine is normal. Is multilevel degenerative disc and facet disease. Is variable disc space narrowing and marginal spurring noted. No fractures are identified. Prevertebral tissues are within normal limits. Odontoid is intact. IMPRESSION: Cervical spondylosis. No acute bony abnormality is detected. Dictated by: Dictated on workstation # [id number]
[2023-05-24 10:41] LABS: BACTERIA,URINE NEGATIVE /HPF; SQUAMOUS EPITHELIAL CELL,UR 0-2 /HPF
--- NOTE | 2023-05-24 10:53 | Diagnostic Imaging Report ---
HISTORY: Low back pain. TECHNIQUE: 3 views of the lumbar spine. COMPARISON: None FINDINGS: There is mild left convex curvature of the lumbar spine. No spondylolisthesis is seen. There is marked degenerative change at L3-L4 with mild degenerative changes elsewhere in the lower lumbar spine. Vertebral body heights are preserved. There is facet arthropathy in the lower lumbar spine. No acute fracture seen. There is calcific atherosclerosis. Surgical clips are noted. Bilateral sacroiliac joints are patent. There does appear to be a calcification projecting over the left kidney. IMPRESSION: 1. Degenerative changes in the lumbar spine, most pronounced at L3-L4. No acute fracture seen. Dictated by: Dictated on workstation # [id number]
--- NOTE | 2023-05-24 10:54 | Diagnostic Imaging Report ---
THORACIC SPINE, 2 VIEWS ONLY INDICATION: Back pain COMPARISON: CT thoracic spine from 04/21/2020 TECHNIQUE: 2 views of thoracic spine FINDINGS: Kyphotic curvature is normal. No spondylolisthesis. No compression formed within the vertebral bodies. Intervertebral disc space heights are fairly well-preserved. No ankylosis within the thoracic spine. Cholecystectomy clips are noted. IMPRESSION: No acute fracture within the thoracic spine. Dictated by: Dictated on workstation # [id number]
--- NOTE | 2023-05-24 11:01 | ED Fall/Injury ---
General Chief Complaint: Trauma-Non Activation Stated Complaint: FALL Nursing Triage Note: PT TO ROOM 07 VIA [facility] WITH C/O FALLING LAST NIGHT AT 2100. PT DENIES LOC, N/V. PT REPORTS HITTING HEAD, NECK, AND BACK. PT REPORTS HE LEGS "JUST GAVE OUT". History of Present Illness Date Seen by Provider: May 24, 2023 Time Seen by Provider: 09:45 Initial Comments 77-year-old female presents following a fall last night around 11 PM. She denies any loss of consciousness. She reports that her "legs just gave out" that she had neck and back. Patient has had diffuse pain all over but this is not abnormal for her. Patient complains of bilateral lower extremity pain which is normal due to peripheral neuropathy. States that 3 days ago she was started on a new medication is just felt a little bit weaker since then. Any chest pain, nausea, vomiting or any other systemic complaints. Allergies and Home Medications Allergies Coded Allergies: baclofen (Verified Allergy, Severe, 03/01/23) NSAIDS (Non-Steroidal Anti-Inflamma (Verified Allergy, Intermediate, 06/30/21) STATES SHE GETS 'CRAZY' Sulfa (Sulfonamide Antibiotics) (Verified Allergy, Unknown, 06/30/21) ampicillin (Verified Allergy, Unknown, 06/30/21) prednisone (Verified Adverse Reaction, Unknown, 06/30/21) Patient Home Medication List Home Medication List Reviewed: Yes ALPRAZolam (ALPRAZolam) 0.25 Mg Tablet, 0.25 MG PO TID PRN for ANXIETY, (Reported) Entered as Reported by: AXEL LICEA on 06/08/21 1556 Allopurinol (Allopurinol) 100 Mg Tablet, 100 MG PO DAILY, (Reported) Entered as Reported by: LUIS PRADHAN on 05/20/20 1434 Budesonide (Pulmicort) 1 Mg/2 Ml Ampul.neb, 1 MG IH BID Prescribed by: DOUG JUSTICE on 03/01/23 2146 Cholecalciferol (Vitamin D3) (Vitamin D3) 25 Mcg Capsule, 25 MCG PO DAILY, (Reported) Entered as Reported by: LUIS PRADHAN on 05/25/20 1218 Dexlansoprazole (Dexilant) 60 Mg , 60 MG PO DAILY, (Reported) Entered as Reported by: LUIS PRADHAN on 05/20/20 1434 Dicyclomine HCl (Dicyclomine HCl) 20 Mg Tablet, 20 MG PO QID PRN for ABDOMINAL CRAMPING, (Reported) Entered as Reported by: LUIS PRADHAN on 05/25/20 1218 Doxazosin Mesylate (Doxazosin Mesylate) 2 Mg Tablet, 2 MG PO HS, (Reported) Entered as Reported by: LUIS PRADHAN on 05/20/20 1434 Estrogens Conjugated (Premarin) 1.25 Mg Tab, 1.25 MG PO DAILY, (Reported) Entered as Reported by: LUIS PRADHAN on 05/20/20 1434 Gabapentin (Gabapentin) 400 Mg Capsule, 400 MG PO BID, (Reported) Entered as Reported by: LUIS PRADHAN on 05/20/20 1434 Glucos Sul 2Kcl/MSM/Chond/C/Mn (Glucosamine Chondroitin Cap) 1 Each Capsule, 1 EACH PO DAILY, (Reported) Entered as Reported by: LUIS PRADHAN on 05/25/20 1218 Imipramine HCl (Imipramine HCl) 50 Mg Tablet, 50 MG PO HS, (Reported) Entered as Reported by: LUIS PRADHAN on 05/20/20 1434 Levomefolate/B6/B12/Algal Oil (Metanx Capsule) 1 Each Capsule, 1 EACH PO BID, (Reported) Entered as Reported by: LUIS PRADHAN on 05/25/20 1218 Linagliptin (Tradjenta) 5 Mg Tablet, 5 MG PO DAILY, (Reported) Entered as Reported by: LUIS PRADHAN on 05/20/20 1434 Losartan Potassium (Losartan Potassium) 100 Mg Tablet, 100 MG PO DAILY, (Reported) Entered as Reported by: LUIS PRADHAN on 05/20/20 1434 Magnesium Oxide (Magnesium Oxide) 400 Mg Tablet, 400 MG PO DAILY PRN for MUSCLE CRAMPS, (Reported) Entered as Reported by: LUIS PRADHAN on 05/20/20 1434 Promethazine HCl/Codeine (Prometh-Codein 6.25-10 mg/5 ml) 6.25 Mg-10 Mg/5 Ml (5 Ml) Syrup, 5 ML PO Q4H Prescribed by: DOUG JUSTICE on 03/01/232145 Review of Systems Review of Systems Constitutional: weakness Ears, Nose, Mouth, Throat: no symptoms reported Cardiovascular: no symptoms reported Gastrointestinal: no symptoms reported Genitourinary: no symptoms reported Musculoskeletal: see HPI Skin: no symptoms reported Psychiatric/Neurological: No Symptoms Reported Past Mmqwajk-[id number]-Xswnma Hx Patient Social History Tobacco Use?: No Smoking Status: Never a Smoker Smokeless Tobacco Frequency: Never a User Use of E-Cig and/or Vaping dev: No Use of E-Cig and/or Vaping [place]: Never a User Substance use?: No Alcohol Use?: No Pt feels they are or have been: No Immunizations Up To Date Tetanus Booster (TDap): Unknown First/Initial COVID19 Vaccinat: unknown 2019 Second COVID19 Vaccination Akira: unknown 2019 Third COVID19 Vaccination Date: NA Seasonal Allergies Seasonal Allergies: No Past Medical History Surgery/Hospitalization HX: LOST A KIDNEY 1975, NUEROPATHY, HTN, SURG.-APPENDECTOMY, CHOLECYSTECTOMY, HYST., COLONOSCOPY Surgeries: Yes (excision of skin cancer on right hand) Appendectomy, Gallbladder, Hysterectomy, Nephrectomy Respiratory: No Currently Using CPAP: No Currently Using BIPAP: No Cardiac: Yes Hypertension, Peripheral Vascular, Valvular Heart Disease Neurological: Yes Neuropathy 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 Disorders: Yes 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 History: Hysterectomy, Menopausal Genitourinary: Yes (CHRONIC RENAL INSUFFICIENCY, kidney removed after injury from sx) Gastrointestinal: Yes Gastroesophageal Reflux, Gastrointestinal Bleed, Polyps Musculoskeletal: Yes Arthritis Endocrine: Yes Diabetes, Non-Insulin dep HEENT: Yes Cataract Hearing Impairment: Hard of Hearing Cancer: Yes Skin Did You Recieve Any Treatments: Yes What Type of Treatment Did You: Surgical Intervention Psychosocial: Yes Anxiety Integumentary: Yes (SKIN CANCER) Blood Disorders: No Adverse Reaction/Blood Tranf: No Family Medical History Cataract 03 FATHER 03 MOTHER 09 BROTHER 09 BROTHER Dementia 03 MOTHER Family history: Allergy 09 BROTHER Family history: Arthritis 03 MOTHER Family history: Diabetes mellitus 09 BROTHER Family history: Glaucoma 03 MOTHER Family history: Osteoporosis 03 MOTHER Hereditary disease 03 MOTHER Prostate cancer 03 FATHER Stroke 03 MOTHER No Family History of: Abdominal aortic aneurysm [place]'s disease Alcoholism Aphasia Cancer Cancer of colon Chest pain Congenital heart disease Congestive heart failure Cystic fibrosis Dysphagia Family history: Alzheimer's disease Family history: Asthma Family history: Breast disease Family history: Cardiovascular disease Family history: Coronary thrombosis Family history: Gastrointestinal disease Family history: Hypertension Family history: Thyroid disorder Headache Hearing loss Heart disease History of - anemia History of - disorder History of - respiratory disease History of drug abuse Human immunodeficiency virus (HIV) seropositivity Hypercholesterolemia Infertile Kidney disease Malignant neoplasm of lung Myocardial infarction Parkinson's disease Psychotic disorder Seizure disorder Tuberculosis Visual impairment Cancer, Diabetes, Stroke Physical Exam Vital Signs Vital Signs - First Documented 05/24/23 09:40 Temp 36.8 Pulse 68 Resp 17 B/P (MAP) 142/56 (84) Pulse Ox 97 O2 Delivery Room Air Capillary Refill : Less Than 3 Seconds Height, Weight, BMI Height: 5'0.00" Weight: 158lbs. 0.0oz. 71.914705dt; 30.00 BMI Method:Stated General Appearance: WD/WN, no apparent distress Neck: other (c- Collar prior to arrival) Cardiovascular: regular rate, rhythm, other (1-2+ edema bilateral) Respiratory: lungs clear, normal breath sounds Extremities: normal range of motion 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: alert, normal mood/affect, oriented x 3 Skin: normal color, warm/dry Progress/Results/Core Measures Results/Orders Lab Results Laboratory Tests Test 05/24/23 09:53 05/24/23 10:26 Range/Units White Blood Count 11.8 H 4.3-11.0 10^3/uL Red Blood Count 3.59 L 3.80-5.11 10^6/uL Hemoglobin 9.9 L 11.5-16.0 g/dL Hematocrit 31 L 35-52 % Mean Corpuscular Volume 87 80-99 fL Mean Corpuscular Hemoglobin 28 25-34 pg Mean Corpuscular Hemoglobin Concent 32 32-36 g/dL Red Cell Distribution Width 14.6 H 10.0-14.5 % Platelet Count 202 130-400 10^3/uL Mean Platelet Volume 11.3 9.0-12.2 fL Immature Granulocyte % (Auto) 1 % Neutrophils (%) (Auto) 71 42-75 % Lymphocytes (%) (Auto) 19 12-44 % Monocytes (%) (Auto) 9 0-12 % Eosinophils (%) (Auto) 0 0-10 % Basophils (%) (Auto) 0 0-10 % Neutrophils # (Auto) 8.4 H 1.8-7.8 10^3/uL Lymphocytes # (Auto) 2.2 1.0-4.0 10^3/uL Monocytes # (Auto) 1.0 0.0-1.0 10^3/uL Eosinophils # (Auto) 0.0 0.0-0.3 10^3/uL Basophils # (Auto) 0.0 0.0-0.1 10^3/uL Immature Granulocyte # (Auto) 0.1 0.0-0.1 10^3/uL Sodium Level 130 L 135-145 MMOL/L Potassium Level 3.0 L 3.6-5.0 MMOL/L Chloride Level 89 L 98-107 MMOL/L Carbon Dioxide Level 24 21-32 MMOL/L Anion Gap 17 H 5-14 MMOL/L Blood Urea Nitrogen 72 H 7-18 MG/DL Creatinine 2.22 H 0.60-1.30 MG/DL Estimat Glomerular Filtration Rate 22 BUN/Creatinine Ratio 32 Glucose Level 147 H 70-105 MG/DL Calcium Level 9.7 8.5-10.1 MG/DL Corrected Calcium 10.3 H 8.5-10.1 MG/DL Total Bilirubin 0.3 0.1-1.0 MG/DL Aspartate Amino Transf (AST/SGOT) 33 5-34 U/L Alanine Aminotransferase (ALT/SGPT) 11 0-55 U/L Alkaline Phosphatase 72 40-136 U/L Total Protein 7.1 6.4-8.2 GM/DL Albumin 3.2 3.2-4.5 GM/DL Urine Color YELLOW Urine Clarity CLEAR Urine pH 6.0 5-9 Urine Specific [place] 1.010 L 1.016-1.022 Urine Protein TRACE H NEGATIVE Urine Glucose (UA) NEGATIVE NEGATIVE Urine Ketones NEGATIVE NEGATIVE Urine Nitrite NEGATIVE NEGATIVE Urine Bilirubin NEGATIVE NEGATIVE Urine Urobilinogen 0.2 < = 1.0 MG/DL Urine Leukocyte Esterase NEGATIVE NEGATIVE Urine RBC (Auto) NEGATIVE NEGATIVE Urine RBC NONE /HPF Urine WBC NONE /HPF Urine Squamous Epithelial Cells 0-2 /HPF Urine Crystals NONE /LPF Urine Bacteria NEGATIVE /HPF Urine Casts NONE /LPF Urine Mucus NEGATIVE /LPF Urine Culture Indicated NO My Orders Orders - AAMIR FIGUEROA DO Ct Head/Cervical Spine Wo (05/24/23 09:47) Thoracic Spine, 2 Views Only (05/24/23 09:47) Lumbar Spine - 2-3 Views (05/24/23 09:47) Cbc With Automated Diff (05/24/23 09:47) Comprehensive Metabolic Panel (05/24/23 09:47) Ua Culture If Indicated (05/24/23 09:47) Ed Iv/Invasive Line Start (05/24/23 10:27) Ns Iv 500 Ml (Sodium Chloride 0.9%) (05/24/23 10:30) Medications Given in ED Current Medications Medications Dose Ordered Sig/Olga Lidia Route Start Time Stop Time Status Last Admin Dose Admin Sodium Chloride 500 ml @ 0 mls/hr Q0M ONCE IV 05/24/23 10:30 05/24/23 10:31 DC 05/24/23 10:39 999 MLS/HR Vital Signs/I&O 05/24/23 05/24/23 05/24/23 09:40 09:40 11:14 Temp 36.8 36.8 36.2 Pulse 68 68 69 Resp 17 17 16 B/P (MAP) 142/56 (84) 142/56 (84) 136/88 Pulse Ox 97 97 O2 Delivery Room Air Room Air Room Air Blood Pressure Mean: 84 Progress Progress Note : Progress Note Diagnostic studies were ordered reviewed and interpreted by me. Patient with mild increase in her BUN and creatinine from baseline. She was given a small amount of fluids. Patient's imaging studies were ordered and reviewed by me with final interpretation per radiology report with no acute findings. Discussed with patient is likely due to her recent medication change that she has a little bit of his generalized weakness. Recommended she follow follow-up with her primary care provider on outpatient basis to discuss her recent medication change and also to review her medications for her peripheral neuropathy which seems to be a significant plan hers. At this time there is no indications for admission. Patient was given a small amount of IV fluids to help with her mild increase in her BUN and creatinine. Patient is at increased risk for morbidity and mortality based on her social determinants of health. She is stable upon discharge. Diagnostic Imaging Diagonstic Imaging: CT Plain Films/CT/US/NM/MRI: c-spine, head Comments Date of Exam:05/24/23 CT HEAD/CERVICAL SPINE WO PROCEDURE: CT head and CT cervical spine without contrast. TECHNIQUE: Multiple contiguous axial images were obtained through the brain and cervical spine without the use of intravenous contrast. Sagittal and coronal reformations through the cervical spine were then performed. Auto Exposure Controls were utilized during the CT exam to meet ALARA standards for radiation dose reduction. INDICATION: Fall with head and neck pain. Correlation is made with prior CT from 04/11/2021. CT HEAD: The ventricles and sulci are within normal limits. No sulcal effacement or midline shift is identified. No acute intra-axial or extra-axial hemorrhage is detected. Cisterns are patent. Visualized paranasal sinuses are clear. IMPRESSION: No acute intracranial process is identified. CT cervical spine: Curvature and alignment of the cervical spine is normal. Is multilevel degenerative disc and facet disease. Is variable disc space narrowing and marginal spurring noted. No fractures are identified. Prevertebral tissues are within normal limits. Odontoid is intact. IMPRESSION: Cervical spondylosis. No acute bony abnormality is detected. Reviewed: Reviewed by Me, Reviewed/Discussed Diagonstic Imaging: Xray Plain Films/CT/US/NM/MRI: other Comments Date of Exam:05/24/23 LUMBAR SPINE - 2-3 VIEWS HISTORY: Low back pain. TECHNIQUE: 3 views of the lumbar spine. COMPARISON: None FINDINGS: There is mild left convex curvature of the lumbar spine. No spondylolisthesis is seen. There is marked degenerative change at L3-L4 with mild degenerative changes elsewhere in the lower lumbar spine. Vertebral body heights are preserved. There is facet arthropathy in the lower lumbar spine. No acute fracture seen. There is calcific atherosclerosis. Surgical clips are noted. Bilateral sacroiliac joints are patent. There does appear to be a calcification projecting over the left kidney. IMPRESSION: 1. Degenerative changes in the lumbar spine, most pronounced at L3-L4. No acute fracture seen. THORACIC SPINE, 2 VIEWS ONLY INDICATION: Back pain COMPARISON: CT thoracic spine from 04/21/2020 TECHNIQUE: 2 views of thoracic spine FINDINGS: Kyphotic curvature is normal. No spondylolisthesis. No compression formed within the vertebral bodies. Intervertebral disc space heights are fairly well-preserved. No ankylosis within the thoracic spine. Cholecystectomy clips are noted. IMPRESSION: No acute fracture within the thoracic spine. Reviewed: Reviewed by Me, Reviewed/Discussed Departure Impression Primary Impression: Fall on same level Qualified Codes: W18.30XA - Fall on same level, unspecified, initial encounter Additional Impressions: Chronic kidney disease Qualified Codes: N18.9 - Chronic kidney disease, unspecified Generalized weakness Disposition: 01 HOME, SELF-CARE Condition: Stable Departure-Patient Inst. Referrals: ARACELI JEAN-BAPTISTE DO (PCP/Family) Primary Care Physician Patient Instructions: Chronic Kidney Disease (DC), Generalized Weakness, Minor Head Injury (DC) Add. Discharge Instructions: please follow up with Dr Jean-Baptiste for recheck of symptoms and further outpt management All discharge instructions reviewed with patient and/or family. Voiced understanding. AAMIR FIGUEROA DO May 24, 2023 11:01
[2023-05-24 11:14] VITALS: BP 136/88
== END 2023-05-24 11:14 | disposition home or self-care (01) ==
LOC: EDUNIT# 09:38 → ER 09:39
DX: I12.9 Hypertensive chronic kidney disease with stage 1 through stage 4 chronic kidney disease, or unspecified chronic kidney disease (principal); E11.22 Type 2 diabetes mellitus with diabetic chronic kidney disease; E11.42 Type 2 diabetes mellitus with diabetic polyneuropathy; N18.9 Chronic kidney disease, unspecified; W18.30XA Fall on same level, unspecified, initial encounter
CPT/HCPCS: 36415; 70450; 72070; 72100; 72125; 80053; 81000; 85025